=== PATIENT | male | born 1980 | race Caucasian/White ===

== ENCOUNTER 2017-01-05 11:37 | Inpatient (IN) | payer OTHER ==
[2017-01-05] MEDS ORDERED: HYDROmorphone 1 MG/ML 1 ML SYRINGE IVP STA ×2 (11:52→16:12)
[2017-01-05] MEDS ORDERED: SODIUM CHLORIDE 0.9% 1,000 ML IV STA ×2 (11:52)
[2017-01-05] MEDS ORDERED: ONDANSETRON 4 MG/2 ML VIAL IVP STA (11:52)
[2017-01-05] MEDS ORDERED: FAMOTIDINE 20 MG/2 ML VIAL IV STA (11:55)
--- NOTE | 2017-01-05 11:55 | ED ---
General Adult HPI - General Chief complaint: Abdominal Pain Stated complaint: abd pain Time Seen by Provider: 01/05/17 11:40 Source: patient, RN notes reviewed Mode of arrival: ambulatory Limitations: no limitations - History of Present Illness Initial comments: Patient is a 36-year-old male who presents emergency room today with chief complaint of abdominal pain 2 weeks. He does admit that over the past week she 's been expressing pain in the upper abdomen. States it is worse after he eats. He is worried about possible gallbladder issues. States never had pain like this before. States does not matter what he eats. He has pain afterwards. He does admit to episodes of nausea vomiting no signs of blood. Denies any other complaints or symptoms. Patient denies any recent fever, chills , shortness of breath, chest pain, back pain, numbness or tingling, dysuria or hematuria, constipation or diarrhea, headaches or visual changes, or any other complaints. - Related Data Home Medications Medication Instructions Recorded Confirmed Calcium Carbonate [Tums] 1,000 mg PO QID PRN 01/05/17 01/05/17 Ibuprofen [Motrin] 400 mg PO Q6HR PRN 01/05/17 01/05/17 Allergies Allergy/AdvReac Type Severity Reaction Status Date / Time diphenhydramine AdvReac Severe AGITATION Verified 01/05/17 12:24 [From [facility]] Review of Systems ROS Statement: Those systems with pertinent positive or pertinent negative responses have been documented in the HPI. ROS Other: All systems not noted in ROS Statement are negative. Past Medical History Past Medical History: No Reported History Additional Past Medical History / Comment(s): crohns History of Any Multi-Drug Resistant Organisms: None Reported Past Surgical History: Hernia Repair Past Psychological History: No Psychological Hx Reported Smoking Status: Current every day smoker Past Alcohol Use History: None Reported Past Drug Use History: None Reported General Exam - General Exam Comments Initial Comments: General: The patient is awake and alert, in no distress, and does not appear acutely ill. Eye: Pupils are equal, round and reactive to light, extra-ocular movements are intact. No nystagmus. There is normal conjunctiva bilaterally. No signs of icterus. Ears, nose, mouth and throat: There are moist mucous membranes and no oral lesions. Neck: The neck is supple, there is no tenderness or JVD. Cardiovascular: There is a regular rate and rhythm. No murmur, rub or gallop is appreciated. Respiratory: Lungs are clear to auscultation, respirations are non-labored, breath sounds are equal. No wheezes, stridor, rales, or rhonchi. Gastrointestinal: Normal appearance the abdomen. Normal bowel sounds. Abdomen soft on palpation. Patient does have tenderness in the epigastric. Mild tenderness right upper quadrant. Mild tenderness left upper quadrant. No rebound tenderness. Guarding. No CVA tenderness. Musculoskeletal: Normal ROM, no tenderness. Strength 5/5. Sensation intact. Pulses equal bilaterally 2+. Neurological: A&O x 3. CN II-XII intact, There are no obvious motor or sensory deficits. Coordination appears grossly intact. Speech is normal. Skin: Skin is warm and dry and no rashes or lesions are noted. Psychiatric: Cooperative, appropriate mood & affect, normal judgment. Limitations: no limitations Course Vital Signs 01/05/17 01/05/17 01/05/17 11:44 12:00 16:05 Temperature 98.2 F 98.5 F 97.8 F Pulse Rate 118 H 108 H 72 Respiratory 20 16 18 Rate Blood Pressure 144/86 128/77 106/64 O2 Sat by Pulse 97 98 98 Oximetry Medical Decision Making - Medical Decision Making Patient's CT of the abdomen shows 1. Multiloculated abscess from [place] visceral perforation, perforated appendix is favored, with extensive descending colonic and cecal bowel wall thickening, pericolonic inflammation fat stranding , and fascial thickening with free fluid in the pelvis area abscess may not be currently minimal to percutaneous drainage as there are numerous loculations and extensive surrounding phlegmon. 2. Bilateral 1-2 mm nonobstructing renal calculi. Case was discussed with attending physician who did discuss case with on -call surgeon Dr. Peralta who recommends transfer she feels that cases more complicated and may require Crohns specialist. 1545: Case discussed with Chuckie Frazier. ER resident Dr. Jamison to discuss case with on-call surgeon. 1552: [facility] ER attending physician called back stating that their surgeon would not except case as they feel that it could be handled at this facility 1610: Case discussed with surgeon Dr. Harris who states he will come to evaluate the patient here at approximately 45 minutes. Patient has been updated. Currently receiving IV antibiotics of Zosyn. Patient resting comfortably. 1512: Patient seen here in the emergency room by Dr. Arreola. States he willing to accept the patient. Patient will be admitted to medicine and was discussed with admitting physician Dr. Garg. - Lab Data Result diagrams: 01/05/17 12:15 01/05/17 12:15 Lab Results 01/05/17 01/05/17 01/05/17 Range/Units 12:15 12:15 13:20 WBC 20.0 H (3.8-10.6) k/uL RBC 4.92 (4.30-5.90) m/uL Hgb 14.9 (13.0-17.5) gm/dL Hct 44.5 (39.0-53.0) % MCV 90.5 (80.0-100.0) fL MCH 30.2 (25.0-35.0) pg MCHC 33.3 (31.0-37.0) g/dL RDW 12.9 (11.5-15.5) % Plt Count 396 (150-450) k/uL Neutrophils % 87 % Lymphocytes % 7 % Monocytes % 4 % Eosinophils % 1 % Basophils % 0 % Neutrophils # 17.4 H (1.3-7.7) k/uL Lymphocytes # 1.4 (1.0-4.8) k/uL Monocytes # 0.8 (0-1.0) k/uL Eosinophils # 0.2 (0-0.7) k/uL Basophils # 0.1 (0-0.2) k/uL Sodium 139 (137-145) mmol/L Potassium 4.3 (3.5-5.1) mmol/L Chloride 106 (98-107) mmol/L Carbon Dioxide 22 (22-30) mmol/L Anion Gap 11 mmol/L BUN 12 (9-20) mg/dL Creatinine 0.70 (0.66-1.25) mg/dL Est GFR (MDRD) Af Amer >60 (>60 ml/min/1.73 sqM) Est GFR (MDRD) Non-Af >60 (>60 ml/min/1.73 sqM) Glucose 145 H (74-99) mg/dL Calcium 9.1 (8.4-10.2) mg/dL Total Bilirubin 0.8 (0.2-1.3) mg/dL AST 14 L (17-59) U/L ALT 20 L (21-72) U/L Alkaline Phosphatase 70 (38-126) U/L Total Protein 7.0 (6.3-8.2) g/dL Albumin 3.5 (3.5-5.0) g/dL Amylase 43 (30-110) U/L Lipase 50 (23-300) U/L Urine Color Yellow Urine Appearance Clear (Clear) Urine pH 6.0 (5.0-8.0) Ur Specific [place] 1.025 (1.001-1.035) Urine Protein 1+ H (Negative) Urine Glucose (UA) Negative (Negative) Urine Ketones Trace H (Negative) Urine Blood Moderate H (Negative) Urine Nitrite Negative (Negative) Urine Bilirubin Negative (Negative) Urine Urobilinogen 3.0 (<2.0) mg/dL Ur Leukocyte Esterase Negative (Negative) Urine RBC 18 H (0-5) /hpf Urine WBC 1 (0-5) /hpf Urine Bacteria Rare H (None) /hpf Urine Mucus Many H (None) /hpf Disposition Clinical Impression: Intestinal abscess Disposition: ADMITTED IP TO THIS HOSP Condition: Stable Time of Disposition: 17:12
[2017-01-05 12:31] LABS: Basophils # (A) 0.1 k/uL (0-0.2); Basophils % (A) 0 %; CH 30.5; CHCM 33.7; Eosinophils # (A) 0.2 k/uL (0-0.7); Eosinophils % (A) 1 %; HCT 44.5 % (39.0-53.0); HDW 2.61; HGB 14.9 gm/dL (13.0-17.5); Luc % (Auto) 1; Lymphocytes # (A) 1.4 k/uL (1.0-4.8); Lymphocytes % (A) 7 %; MCH 30.2 pg (25.0-35.0); MCHC 33.3 g/dL (31.0-37.0); MCV 90.5 fL (80.0-100.0); Monocytes # (A) 0.8 k/uL (0-1.0); Monocytes % (A) 4 %; Neutrophils # (A) 17.4 k/uL (1.3-7.7); Neutrophils % (A) 87 %; RBC 4.92 m/uL (4.30-5.90); RDW 12.9 % (11.5-15.5); WBC (Perox) 19.31
[2017-01-05 12:39] LABS: ALT 20 U/L (21-72); AST 14 U/L (17-59); Alkaline Phosphatase 70 U/L (38-126); Amylase 43 U/L (30-110); Anion Gap 11 mmol/L; Blood Urea Nitrogen 12 mg/dL (9-20); Calcium 9.1 mg/dL (8.4-10.2); Carbon Dioxide 22 mmol/L (22-30); Chloride 106 mmol/L (98-107); Glucose 145 mg/dL (74-99); Non-African American GFR(MDRD) >60 (>60 ml/min/1.73 sqM); Potassium 4.3 mmol/L (3.5-5.1); Sodium 139 mmol/L (137-145); Total Bilirubin 0.8 mg/dL (0.2-1.3)
--- NOTE | 2017-01-05 13:11 | US ---
EXAMINATION TYPE: US abdomen limited DATE OF EXAM: 01/05/2017 12:57 PM COMPARISON: NONE CLINICAL HISTORY: Pain. Epigastric pain, nausea and vomiting x 3 weeks, history of kidney stones EXAM MEASUREMENTS: Liver Length: 15.5 cm Gallbladder Wall: 0.2 cm CBD: 0.3 cm Right Kidney: 11.8 x 4.0 x 5.4 cm Pancreas: portions are obscured by overlying bowel content Liver: appears wnl Gallbladder: no evidence of stones Evidence for sonographic Carbone's sign: no CBD: appears wnl Right Kidney: no evidence of hydronephrosis IMPRESSION: NORMAL RIGHT UPPER QUADRANT ULTRASOUND.
[2017-01-05] MEDS ORDERED: MAG HYDROX/AL HYDROX/SIMETH 30 ML, HYOSCYAMINE ELIXIR 10 ML, CIMETIDINE HCL 300 MG, LID... PO STA ×4 (13:51)
[2017-01-05 13:52] LABS: Appearance,Urine Clear (Clear); Bacteria,Urine Rare /hpf; Bilirubin,Urine Negative (Negative); Glucose,Urine (UA) Negative (Negative); Ketones,Urine Trace (Negative); Leukocyte Esterase,Urine Negative (Negative); Mucus,Urine Many /hpf; Nitrite,Urine Negative (Negative); Particle Count 8010; Protein,Urine 1+ (Negative); RBC,Urine 18 /hpf (0-5); Specific Gravity,Urine 1.025 (1.001-1.035); UA Billing (MACRO vs. MICRO) MICRO; WBC,Urine 1 /hpf (0-5)
[2017-01-05] MEDS ORDERED: IOHEXOL 350 MG/ML 25 ML BOTTLE (ORAL USE) PO PRN (14:13)
[2017-01-05] MEDS ORDERED: RX INFO: IV CONTRAST WAS GIVEN 1 EACH MISC MISCELLANE PRN (14:13)
--- NOTE | 2017-01-05 15:21 | CT ---
EXAMINATION TYPE: CT abdomen pelvis w con DATE OF EXAM: 01/05/2017 3:01 PM COMPARISON: 08/08/2016 HISTORY: LUQ pain that worsens following meals CT DLP: 874 mGycm Automated exposure control for dose reduction was used. TECHNIQUE: Helical acquisition of images was performed from the lung bases through the pelvis. CONTRAST: Performed with Oral Contrast and with IV Contrast, patient injected with 100 mL of Omnipaque 300. FINDINGS: LUNG BASES: No significant abnormality is appreciated. LIVER/GB: No significant abnormality is appreciated. PANCREAS: No significant abnormality is seen. SPLEEN: No significant abnormality is seen. ADRENALS: No significant abnormality is seen. KIDNEYS: The kidneys enhance symmetrically. 2 punctate 1 to 2 mm nonobstructing left midpole renal ca lculi are seen as well as a single 1 to 2 mm right midpole renal calculus which is also nonobstructin g. RETROPERITONEAL ADENOPATHY: None visualized REPRODUCTIVE ORGANS: No significant abnormality is seen URINARY BLADDER: No significant abnormality is seen. PELVIC ADENOPATHY: None visualized. OSSEOUS STRUCTURES: No significant abnormality is seen. Sclerotic bone islands are stable and benign . BOWEL: There is long segment bowel wall thickening and also hyperemia of the entirety of the descend ing colon and cecum with extensive pericolonic fat stranding around the cecum and thickening of the a djacent fascial planes with free fluid lying dependently within the pelvis. Adjacent to the low-lying pelvic cecum there is a multiloculated peripherally rim-enhancing phlegmonous collection containing foci of air and fluid measuring at least 3.2 x 2.7 cm with an adjacent smaller air and fluid containi ng satellite focus measuring 1.6 x 1.7 cm. Extensive surrounding inflammatory changes and phlegmonous changes are seen within the pelvis. Loculated free air is present within the pelvis however no pneum operitoneum is seen within the upper abdomen. Sigmoid diverticula are present without pericolonic fat stranding other than the adjacent pericolonic fat stranding from the right hemicolon. Findings were discussed in person with Dr. Joseph (ER physician) at 1515 on 01/05/[address] Alfredo. IMPRESSION: 1. MULTILOCULATED ABSCESS FROM HOLLOW VISCERAL PERFORATION, PERFORATED APPENDIX IS FAVORED, WITH EXTE NSIVE DESCENDING COLONIC AND CECAL BOWEL WALL THICKENING, PERICOLONIC INFLAMMATORY FAT STRANDING, AND FASCIAL THICKENING WITH FREE FLUID IN THE PELVIS. ABSCESS MAY NOT BE CURRENTLY MINIMAL TO PERCUTANEO US DRAINAGE THERE ARE NUMEROUS LOCULATIONS AND EXTENSIVE SURROUNDING PHLEGMON. 2. BILATERAL 1 TO 2 MM NONOBSTRUCTING RENAL CALCULI.
[2017-01-05] MEDS ORDERED: PIPERACILLIN-TAZOBACTAM 3.375 GM in DEXTROSE/WATER 1 50ML.BAG IVPB STA (15:31)
[2017-01-05] MEDS ORDERED: SODIUM CHLORIDE 0.9% 1,000 ML IV ONE (17:16)
[2017-01-05] MEDS ORDERED: NALOXONE 0.4 MG/ML 1 ML VIAL IV PRN (17:16)
[2017-01-05] MEDS ORDERED: ONDANSETRON 4 MG/2 ML VIAL IVP PRN (17:16)
[2017-01-05] MEDS ORDERED: methylPREDNISolone SOD SUCCI 125 MG/2 ML VIAL IV STA (17:37)
--- NOTE | 2017-01-05 17:43 | P.GSCN ---
History of Present Illness Consult date: 01/05/17 Reason for Consult: Fisutalizing crohns with abscess Requesting physician: Rhys Joseph History of present illness: Patient is a [age]-year-old male who had Crohn disease diagnosed about 8 years ago. He had one further up in the past she's a colonoscopy in the past by Dr. Buenrostro at which time it was revealed that he had Crohn's disease. He presents today with a 3 week history. He was not feeling well primarily with a left upper quadrant and epigastric pain so she was nausea and vomiting. This been progressively getting worse. For the last 2-3 weeks she's not been eating much he's been losing weight. He's not had any problems with bowel movements and no other abdominal pain except in the left upper quadrant which is moderate to severe. He has had some fever and chills and is not feeling hungry at this time. His appetite is reduced this and malaise. No urinary complaints no hematemesis hematochezia or melena. He has not followed up with any primary care doctor in the past. He is otherwise not to worker. He smokes half pack per day. He has an adverse reaction with Benadryl. Only previous surgery is a right inguinal hernia. Review of Systems - Constitutional Denies fever, Denies weight loss - EENT Eyes: denies blurred vision - Cardiovascular Denies chest pain, Denies claudication, Denies edema, Denies irregular heart beat, Denies leg edema, Denies palpitations, Denies shortness of breath - Respiratory Denies cough, Denies cough with sputum, Denies dyspnea - Gastrointestinal Reports abdominal pain, Reports heartburn, Reports indigestion, Reports loss of appetite, Denies change in bowel habits, Denies constipation, Denies diarrhea, Denies excessive gas, Denies hematochezia - Integumentary Denies rash, Denies unusual bruising Past Medical History Past Medical History: No Reported History Additional Past Medical History / Comment(s): crohns History of Any Multi-Drug Resistant Organisms: None Reported Past Surgical History: Hernia Repair Past Psychological History: No Psychological Hx Reported Smoking Status: Current every day smoker Past Alcohol Use History: None Reported Past Drug Use History: None Reported Medications and Allergies Home Medications Medication Instructions Recorded Confirmed Type Calcium Carbonate [Tums] 1,000 mg PO QID PRN 01/05/17 01/05/17 History Ibuprofen [Motrin] 400 mg PO Q6HR PRN 01/05/17 01/05/17 History Allergies Allergy/AdvReac Type Severity Reaction Status Date / Time diphenhydramine AdvReac Severe AGITATION Verified 01/05/17 12:24 [From [facility]] Surgical - Exam Vital Signs Temp Pulse Resp BP Pulse Ox 98.2 F 118 H 20 144/86 97 01/05/17 11:44 01/05/17 11:44 01/05/17 11:44 01/05/17 11:44 01/05/17 11:44 - General well developed, well nourished, moderate distress - Eyes PERRL, normal ocular movement, no pale, no icteric, no deviation, no loss of movement absent: ptosis, lesions, erythema, surgical pupil - ENT dry mucous membranes normal pinna, normal nares - Respiratory normal expansion, normal respiratory effort - Cardiovascular Rhythm: regular - Abdomen Patient is mildly tender in the left upper quadrant. He is not guarding but he has some tenderness in remaining part of the abdomen there is no rebound. Right lower quadrant phlegmon is palpable Abdomen: soft, tender - Integumentary no rash, no growths, no abnormal pigmentation - Neurologic normal coordination - Musculoskeletal normal gait, normal posture - Psychiatric oriented to time, oriented to person, oriented to place, speech is normal, memory intact Results - Labs 01/05/17 12:15 01/05/17 12:15 Abnormal Lab Results - Last 24 Hours (Table) 01/05/17 01/05/17 01/05/17 Range/Units 12:15 12:15 13:20 WBC 20.0 H (3.8-10.6) k/uL Neutrophils # 17.4 H (1.3-7.7) k/uL Glucose 145 H (74-99) mg/dL AST 14 L (17-59) U/L ALT 20 L (21-72) U/L Urine Protein 1+ H (Negative) Urine Ketones Trace H (Negative) Urine Blood Moderate H (Negative) Urine RBC 18 H (0-5) /hpf Urine Bacteria Rare H (None) /hpf Urine Mucus Many H (None) /hpf Diabetes panel 01/05/17 Range/Units 12:15 Sodium 139 (137-145) mmol/L Potassium 4.3 (3.5-5.1) mmol/L Chloride 106 (98-107) mmol/L Carbon Dioxide 22 (22-30) mmol/L BUN 12 (9-20) mg/dL Creatinine 0.70 (0.66-1.25) mg/dL Glucose 145 H (74-99) mg/dL Calcium 9.1 (8.4-10.2) mg/dL AST 14 L (17-59) U/L ALT 20 L (21-72) U/L Alkaline Phosphatase 70 (38-126) U/L Total Protein 7.0 (6.3-8.2) g/dL Albumin 3.5 (3.5-5.0) g/dL Calcium panel 01/05/17 Range/Units 12:15 Calcium 9.1 (8.4-10.2) mg/dL Albumin 3.5 (3.5-5.0) g/dL Pituitary panel 01/05/17 Range/Units 12:15 Sodium 139 (137-145) mmol/L Potassium 4.3 (3.5-5.1) mmol/L Chloride 106 (98-107) mmol/L Carbon Dioxide 22 (22-30) mmol/L BUN 12 (9-20) mg/dL Creatinine 0.70 (0.66-1.25) mg/dL Glucose 145 H (74-99) mg/dL Calcium 9.1 (8.4-10.2) mg/dL Adrenal panel 01/05/17 Range/Units 12:15 Sodium 139 (137-145) mmol/L Potassium 4.3 (3.5-5.1) mmol/L Chloride 106 (98-107) mmol/L Carbon Dioxide 22 (22-30) mmol/L BUN 12 (9-20) mg/dL Creatinine 0.70 (0.66-1.25) mg/dL Glucose 145 H (74-99) mg/dL Calcium 9.1 (8.4-10.2) mg/dL Total Bilirubin 0.8 (0.2-1.3) mg/dL AST 14 L (17-59) U/L ALT 20 L (21-72) U/L Alkaline Phosphatase 70 (38-126) U/L Total Protein 7.0 (6.3-8.2) g/dL Albumin 3.5 (3.5-5.0) g/dL - Imaging Additional studies: Computed tomography scan of the abdomen and pelvis was reviewed which shows intraloop abscesses between the thickened bowel Crohn's. Appendix is not visualizable. Assessment and Plan (1) Crohns disease Status: Acute Plan: Isn't a 36-year-old male who has Crohn's disease that is specializing in forming abscess interloop abscesses. The appendix is not visible. Considering the patient's history is unlikely that started on the appendix from the piece had specializing folds for a while. He presents with left upper quadrant pain without any bowel issues. Computed tomography scan reveals a small abscess 3.5 cm x 1.5 cm. There are at least 3 areas of small abscesses which are pretty small in size. At this time his abdomen is mildly tender but is not peritoneal I believe there is a window where we can start with immunosuppression and appropriate IV antibiotics. I will continue to monitor his white count and his prognosis is closely. He does not respond to IV antibiotics as well as the steroids he may need surgery. And a detailed discussion with him about closely monitoring his Crohn's also explained to him that in case of surgery he may require an extensive resection of his bowel that would result possibly short bowel syndrome or colostomy creation. Patient is now very willing to undergo any kind of surgery at this time however I have explained all of the plans that to try to manage this medically at this time. I will continue to follow the patient closely with you thank you for the consult
[2017-01-05] MEDS: KETOROLAC 30 MG/ML 1 ML VIAL IVP SCH ×2 (19:00→23:33)
[2017-01-05] MEDS: methylPREDNISolone SOD SUCCI 40 MG/ML 1 ML VIAL IV SCH ×2 (19:02→23:32)
[2017-01-05] MEDS: HYDROmorphone 1 MG/ML 1 ML SYRINGE IV PRN ×2 (19:10→22:03)
--- NOTE | 2017-01-05 21:02 | HP ---
DATE OF ADMISSION: 01/05/2017 CHIEF COMPLAINT: Abdominal ( ) HISTORY OF PRESENT ILLNESS: This is the first known admission for this 36-year-old white male who has a long-standing history of Crohn's disease. Over the last several days he has had increasing abdominal pain. He has had no nausea or vomiting. He also has had no fever or chills. He had a bowel movement this morning. In the emergency room it was felt that he had free air and possibly a perforation. REVIEW OF SYSTEMS: He has had no nausea or vomiting and he has had no melena, hematochezia, jaundice, etc. He has had no urinary complaints. Past medical history, family history, and personal and social histories are unremarkable. He has had a hernia procedure in the past. He is ALLERGIC TO BENADRYL. He is currently not taking any medication. He does not smoke. PHYSICAL EXAMINATION: Blood pressure 106/64 with a pulse of 81, respirations of 29. He is afebrile. In general he appeared to be slender and in no acute distress. Head, ears, eyes, nose, mouth and throat were normal. The chest was clear. Cardiac exam was normal. The abdomen was flat. There was mild tenderness throughout. There were no masses or visceromegaly. Extremities were normal. Neurologically he is intact. IMPRESSION: 1. Crohn's disease. 2. Possible perforated viscus. PLAN: 1. Bed rest. 2. Intravenous fluids. 3. N.p.o. 4. Surgery consult.
[2017-01-05] MEDS ORDERED: NICOTINE 14MG/24HR PATCH TRANSDERM STA (21:14)
[2017-01-05] MEDS: LORazepam 2 MG/ML SYRINGE IV PRN (21:27)
[2017-01-05] MEDS: PIPERACILLIN-TAZOBACTAM 3.375 GM in DEXTROSE/WATER 1 50ML.BAG IVPB SCH (23:33)
[2017-01-06] MEDS: HYDROmorphone 1 MG/ML 1 ML SYRINGE IV PRN ×6 (04:03→22:31)
[2017-01-06] MEDS: LORazepam 2 MG/ML SYRINGE IV PRN ×3 (05:41→21:06)
[2017-01-06] MEDS: methylPREDNISolone SOD SUCCI 40 MG/ML 1 ML VIAL IV SCH (05:44)
[2017-01-06] MEDS: KETOROLAC 30 MG/ML 1 ML VIAL IVP SCH ×3 (05:47→17:30)
[2017-01-06 06:15] LABS: Basophils % (A) 0 %; CHCM 32.9; Eosinophils % (A) 0 %; HCT 38.6 % (39.0-53.0); HDW 2.83; Luc # (Auto) 0.03; Luc % (Auto) 0; Lymphocytes # (A) 0.5 k/uL (1.0-4.8); Lymphocytes % (A) 5 %; MCH 30.7 pg (25.0-35.0); MCHC 33.6 g/dL (31.0-37.0); MCV 91.5 fL (80.0-100.0); Mean Platelet Volume 6.4; Monocytes # (A) 0.2 k/uL (0-1.0); Monocytes % (A) 2 %; Neutrophils % (A) 92 %; RBC 4.22 m/uL (4.30-5.90); RDW 12.5 % (11.5-15.5); WBC 9.8 k/uL (3.8-10.6); WBC (Perox) 10.04
[2017-01-06 06:33] LABS: ALT 21 U/L (21-72); AST 8 U/L (17-59); Alkaline Phosphatase 60 U/L (38-126); Anion Gap 7 mmol/L; Blood Urea Nitrogen 13 mg/dL (9-20); Calcium 8.9 mg/dL (8.4-10.2); Carbon Dioxide 24 mmol/L (22-30); Chloride 108 mmol/L (98-107); Glucose 190 mg/dL (74-99); Non-African American GFR(MDRD) >60 (>60 ml/min/1.73 sqM); Potassium 4.7 mmol/L (3.5-5.1); Sodium 139 mmol/L (137-145); Total Bilirubin 0.4 mg/dL (0.2-1.3); Total Protein 6.1 g/dL (6.3-8.2)
[2017-01-06 06:35] LABS: Glucose,Whole Blood 157 mg/dL (75-99)
[2017-01-06] MEDS: INSULIN LISPRO (humaLOG) 300 UNIT/3 ML VIAL SQ SCH ×4 (06:47→20:58)
[2017-01-06] MEDS: PANTOPRAZOLE 40 MG/10 ML VIAL IVP SCH (09:06)
[2017-01-06] MEDS: PIPERACILLIN-TAZOBACTAM 3.375 GM in DEXTROSE/WATER 1 50ML.BAG IVPB SCH ×3 (09:07→23:05)
--- NOTE | 2017-01-06 11:03 | CONS ---
DATE OF CONSULTATION: 01/06/2017 REASON FOR CONSULTATION: Crohn disease with intra-abdominal abscess. HISTORY OF PRESENT ILLNESS: The patient is a 36-year-old pleasant white male with long-standing history of Crohn disease diagnosed approximately 12 or 13 years ago. According to the patient, he has been doing extremely well. In fact in the last 8 years, he was not maintained on any medications. He recalled having a couple of flare-ups about 8 or 9 years ago, treated with IV steroids for a short course and has done extremely well. For the last 4 weeks he started having diffuse abdominal pain, mostly in the epigastric left upper quadrant area and sometimes in the periumbilical area, associated with some nausea, vomiting, however, for the last 2 days he started developing low-grade fever, had a couple of episodes of emesis and also noted some diarrhea. The symptoms progressively got worse and he developed a fever and came into the emergency room last night. He also lost about 10 pounds since the onset of these symptoms about 4 weeks ago. He denies any rectal bleeding or melena. He came into the emergency room and subsequently had a CT of the abdomen and pelvis done that showed a long segment of bowel wall thickening involving the descending colon, cecum, evidence of multiloculated peripherally enhancing phlegmonous collections containing focus of air and fluid measuring 3 x 2 cm and an adjacent smaller area measuring 1.6 x 1.7 cm with extensive surrounding inflammatory changes within the pelvis all suggestive of multiple abscesses. No pneumoperitoneum in the upper abdomen seen. The patient was seen by Dr. Harris from surgery. He was admitted to the hospital presently on IV broad-spectrum antibiotics and was started on IV Solu-Medrol also. This morning, the patient stated that he is feeling somewhat better. He still has diffuse abdominal pain, but much better than yesterday. No fever, chills, no further episodes of nausea or vomiting. PAST MEDICAL HISTORY: Crohn disease diagnosed about 13 years ago in remission for 8 years and not maintained on any medications. MEDICATIONS AT HOME: Motrin and Tums. SOCIAL HISTORY: No smoking or alcohol use. ALLERGIES: BENADRYL. PAST SURGICAL HISTORY: None. REVIEW OF SYSTEMS: CARDIOPULMONARY: No chest pain or shortness of breath. GENITOURINARY: No dysuria or hematuria. MUSCULOSKELETAL: Unremarkable. SKIN: Unremarkable. ENDOCRINE: Unremarkable. PSYCHIATRIC: Unremarkable. NEUROLOGY: Unremarkable. ENT/VISION: Unremarkable. CONSTITUTIONAL: Weight loss of 10 pounds in the last one month. No fever, chills. On physical examination, temperature 97.1, pulse rate 82, blood pressure 108/54. HEENT examination unremarkable. Conjunctivae pink. Sclerae anicteric. Oral cavity, no lesions. NECK: No JVD or lymph node enlargement. Chest was clear to auscultation. HEART: Regular rate and rhythm. ABDOMEN: Mild diffuse tenderness, mostly in the left upper quadrant area in the periumbilical area as well as in the right lower quadrant area, but bowel sounds are positive. No organomegaly. No rebound or rigidity. EXTREMITIES: No pedal edema. NEURO: Alert and oriented x3. No focal deficits. LABS: Yesterday, WBC 20,000; today it is 9.8, hemoglobin 13, platelets normal. Basic metabolic panel is within normal limits. Amylase and lipase are normal. IMPRESSION: This is a patient with long-standing history of Crohn disease who has been in clinical remission for the last 8 years, not on any maintenance medications and no prior history of surgeries presents to the hospital with progressive worsening abdominal pain associated with intermittent nausea, vomiting, and some diarrhea for the last 4 weeks' duration, weight loss of 10 pounds. He also had fever, chills, night sweats. He did have CT of the abdomen and pelvis done that showed multiple small abscesses, the largest measuring 3 cm in the pelvic area as well as inflammatory changes in the small bowel involving the pelvis as well as the descending colon and the cecum with significant inflammatory changes in the surrounding small bowel. The clinical and radiological picture is consistent with exacerbation of Crohn disease with multiple small pelvic abscesses. He has not been on maintenance medications for the last 8 years. RECOMMENDATIONS: 1. Continue with broad-spectrum antibiotics. 2. Will increase the Solu-Medrol to 60 mg every 6 hours and then taper it gradually over the next 24 to 48 hours. 3. I had a lengthy discussion with patient regarding further management of Crohn disease. At this time, once his pelvic abscesses are resolved and if he does not need any surgery, in the future we will consider biologic therapy as a part of treatment of extensive Crohn disease. 4. He can be started on clear liquid diet if it is okay with General Surgery. 5. I will obtain C-reactive protein and Sed rate. 6. We will follow the patient closely during his hospital stay. Thank you for this consultation.
[2017-01-06 11:40] LABS: Glucose,Whole Blood 236 mg/dL (75-99)
[2017-01-06] MEDS: methylPREDNISolone SOD SUCCI 125 MG/2 ML VIAL IV SCH ×3 (12:05→23:05)
--- NOTE | 2017-01-06 12:55 | PN ---
CHIEF COMPLAINT: Crohn disease and possible perforated viscus. HISTORY OF PRESENT ILLNESS: This gentleman is doing fairly well. He is not having a great deal of pain. It is actually a little bit better than last night. He has had no distention, nausea, vomiting, chills, etc. PHYSICAL EXAM: Chest is clear. Cardiac exam is normal. The abdomen is flat and somewhat firm. He seems to have some generalized tenderness. He has no rebound or referred tenderness. Bowel sounds are heard. IMPRESSION: 1. Possible perforated viscus. 2. Crohn disease. 3. Chronic obstructive pulmonary disease. PLAN: Repeat studies today and await for recommendations with Surgery.
--- NOTE | 2017-01-06 13:01 | P.PN ---
Subjective Principal diagnosis: Crohn's disease Pain has improved. No nausea or vomting. Feeling better than yesterday. No bowel movements. Passing urine. Ate regular meal last night/. Objective - Vital Signs Vital signs: Vital Signs Temp 96.9 F L 01/06/17 08:00 Pulse 76 01/06/17 08:00 Resp 16 01/06/17 08:00 BP 105/54 01/06/17 08:00 Pulse Ox 98 01/06/17 08:00 Intake & Output 01/05/17 01/06/17 01/06/17 18:59 06:59 18:59 Intake Total 1150 Balance 1150 Weight 69.3 kg Intake: Intake, IV Titration 1150 Amount Piperacillin-Tazobactam 3 50 .375 gm In Dextrose/Water 1 50ml.bag @ 12.5 mls/hr IVPB Q8HR [facility] Rx#: [id number] Sodium Chloride 0.9% 1, 1100 000 ml @ 100 mls/hr IV . Q10H ONE Rx#:[id number] Other: Voiding Method Toilet Toilet # Voids 1 - Constitutional General appearance: Present: average body habitus, cooperative - EENT Eyes: Present: anicteric sclerae, EOMI. Absent: abnormal pupil ENT: Absent: hard of hearing - Neck Neck: Present: normal ROM - Cardiovascular Rhythm: regular - Gastrointestinal Gastrointestinal Comment(s): Mild disffuse tenderenss, significantly improved since yesterday. General gastrointestinal: Present: soft. Absent: tenderness - Labs CBC & Chem 7: 01/06/17 05:35 01/06/17 05:35 Labs: Abnormal Lab Results - Last 24 Hours (Table) 01/06/17 01/06/17 01/06/17 Range/Units 05:35 05:35 06:32 RBC 4.22 L (4.30-5.90) m/uL Hct 38.6 L (39.0-53.0) % Neutrophils # 9.0 H (1.3-7.7) k/uL Lymphocytes # 0.5 L (1.0-4.8) k/uL Chloride 108 H (98-107) mmol/L Glucose 190 H (74-99) mg/dL POC Glucose (mg/dL) 157 H (75-99) mg/dL AST 8 L (17-59) U/L Total Protein 6.1 L (6.3-8.2) g/dL Albumin 3.0 L (3.5-5.0) g/dL 01/06/17 Range/Units 11:34 RBC (4.30-5.90) m/uL Hct (39.0-53.0) % Neutrophils # (1.3-7.7) k/uL Lymphocytes # (1.0-4.8) k/uL Chloride (98-107) mmol/L Glucose (74-99) mg/dL POC Glucose (mg/dL) 236 H (75-99) mg/dL AST (17-59) U/L Total Protein (6.3-8.2) g/dL Albumin (3.5-5.0) g/dL Assessment and Plan (1) Crohns disease Status: Acute Plan: Isn't a 36-year-old male who has Crohn's disease Since hsi admission the pain has imrpvoed and the leukocytosis and imrpoved GI input appreciated. Ok to advance diet to clear liquid diet. (issues of non -compliance noted from last night- will monitor) Abdomen is non surgical at this time. Agree with continuing Iv ABX and steroids. Will repeat CT in 48 hours.
[2017-01-06 15:43] VITALS: BMI 23.2
[2017-01-06 16:59] LABS: Glucose,Whole Blood 212 mg/dL (75-99)
[2017-01-06] MEDS: HYDROcodone/APAP 5-325MG 1 EACH TAB PO PRN ×2 (17:37→23:05)
[2017-01-06 21:08] LABS: Glucose,Whole Blood 234 mg/dL (75-99)
[2017-01-07] MEDS: KETOROLAC 30 MG/ML 1 ML VIAL IVP SCH ×3 (00:15→13:32)
[2017-01-07] MEDS: LORazepam 2 MG/ML SYRINGE IV PRN ×2 (00:16→17:01)
[2017-01-07] MEDS: HYDROmorphone 1 MG/ML 1 ML SYRINGE IV PRN ×5 (04:55→16:50)
[2017-01-07] MEDS: methylPREDNISolone SOD SUCCI 125 MG/2 ML VIAL IV SCH ×3 (05:00→17:49)
[2017-01-07] MEDS: INSULIN LISPRO (humaLOG) 300 UNIT/3 ML VIAL SQ SCH ×3 (06:43→17:48)
[2017-01-07] MEDS: HYDROcodone/APAP 5-325MG 1 EACH TAB PO PRN ×3 (06:47→17:47)
[2017-01-07 06:48] LABS: Glucose,Whole Blood 140 mg/dL (75-99)
[2017-01-07 07:33] LABS: Basophils % (A) 0 %; CH 30.1; Eosinophils % (A) 0 %; HCT 38.8 % (39.0-53.0); HDW 2.93; HGB 12.7 gm/dL (13.0-17.5); Luc # (Auto) 0.08; Luc % (Auto) 0; Lymphocytes % (A) 4 %; MCH 29.9 pg (25.0-35.0); MCHC 32.6 g/dL (31.0-37.0); MCV 91.7 fL (80.0-100.0); Mean Platelet Volume 6.6; Monocytes # (A) 0.6 k/uL (0-1.0); Monocytes % (A) 3 %; Neutrophils % (A) 93 %; RBC 4.23 m/uL (4.30-5.90); RDW 12.6 % (11.5-15.5); WBC 22.6 k/uL (3.8-10.6); WBC (Perox) 23.46
[2017-01-07] MEDS: PIPERACILLIN-TAZOBACTAM 3.375 GM in DEXTROSE/WATER 1 50ML.BAG IVPB SCH ×2 (07:36→16:45)
[2017-01-07] MEDS: PANTOPRAZOLE 40 MG/10 ML VIAL IVP SCH (07:38)
[2017-01-07] MEDS ORDERED: NICOTINE 14MG/24HR PATCH TRANSDERM SCH (09:00)
[2017-01-07 09:30] LABS: Erythrocyte Sedimentation Rate 17 mm/hr (0-15)
--- NOTE | 2017-01-07 09:52 | PN ---
DATE OF SERVICE: 01/07/2017 Patient is a 36-year-old white male with longstanding history of Crohn's disease, admitted to the hospital with abdominal pain and subsequently diagnosed with multiple small abscesses with thickening of the small bowel suggestive of exacerbation of Crohn's disease. The largest abscess was 3 x 4 cm. He was evaluated by Dr. Harris and presently on broad-spectrum antibiotics. He stated that his abdominal pain is improving. He was started on a clear liquid diet yesterday, tolerating well. No fever, chills. No diarrhea. On physical examination, he appears comfortable in no apparent distress. Vital signs are stable. Blood pressure 118/59, pulse rate 85, temperature 97.2. HEENT: Unremarkable. Conjunctivae pink. Sclerae anicteric. Oral cavity, no lesions. NECK: No JVD or lymph node enlargement. Chest was clear to auscultation. HEART: Regular rate and rhythm. ABDOMEN: Soft. There was mild diffuse tenderness but no rebound or rigidity. EXTREMITIES: No pedal edema. SKIN: No rashes. NEURO: He is alert and oriented x2. No focal deficits. LABS: WBC 22.6, hemoglobin 12.7, and platelets normal. Neutrophils 21. C-reactive protein is 42. IMPRESSION: 1. Exacerbation of Crohn's disease. 2. Multiple pelvic and abdominal abscess on the CAT scan done 2 days ago, presently on broad-spectrum antibiotics. He has worsening leukocytosis today, but clinically he seems to be doing better. RECOMMENDATIONS: 1. Continue with IV Solu-Medrol 60 mg q.6 hours. 2. Continue with broad-spectrum antibiotics. 3. If leukocytosis continues to get worse, we will plan on repeat CT of the abdomen and pelvis in the next 24 to 48 hours. 4. For now, will continue the same plan and will follow the patient closely during his hospital stay. Thank you for this consultation.
[2017-01-07 11:19] VITALS: RESP 16
[2017-01-07 12:03] LABS: Glucose,Whole Blood 160 mg/dL (75-99)
[2017-01-07] MEDS ORDERED: RX INFO: IV CONTRAST WAS GIVEN 1 EACH MISC MISCELLANE PRN (13:46)
[2017-01-07] MEDS: IOHEXOL 350 MG/ML 25 ML BOTTLE (ORAL USE) PO PRN ×2 (14:06→15:03)
[2017-01-07 16:25] LABS: Glucose,Whole Blood 119 mg/dL (75-99)
--- NOTE | 2017-01-07 16:30 | CT ---
EXAMINATION TYPE: CT abdomen pelvis w con DATE OF EXAM: 01/07/2017 3:51 PM COMPARISON: Previous CT dated 07 September 2016 HISTORY: Generalized pain CT DLP: 455.6 mGycm Automated exposure control for dose reduction was used. TECHNIQUE: Helical acquisition of images from the lung bases through the pelvis have been completed. CONTRAST: Performed with Oral Contrast and with IV Contrast, patient injected with 100 mL of Omnipaque 300. FINDINGS: LUNG BASES: No significant abnormality is appreciated. AORTA: No significant abnormality is appreciated. LIVER/GB: No significant abnormality is appreciated. PANCREAS: No significant abnormality is seen. SPLEEN: No significant abnormality is seen. ADRENALS: No significant abnormality is seen. KIDNEYS: Small left cortical cyst is present upper pole less than 1 cm in size. Stable appearance, no nobstructive calculus suspected on the left No hydronephrosis bilaterally. REPRODUCTIVE ORGANS: No significant abnormality is seen BOWEL: There is ileal wall and right colonic thickening. There is increased attenuation within the f at present adjacent to the terminal ileum, some extraluminal air is present which is localized, no fl uid is present to suggest sizable abscess however. The extraluminal collection measures approximately 3.2 x 2.1 x 2.5 cm. Diverticular changes associated with the sigmoid colon. FREE AIR: No Free Air visible. ASCITES: None visible. PELVIC ADENOPATHY: None visualized. RETROPERITONEAL ADENOPATHY: No Retroperitoneal Adenopathy visible. URINARY BLADDER: No significant abnormality is seen. OSSEOUS STRUCTURES: No significant abnormality is seen. IMPRESSION: CORRELATE FOR POSSIBLE CROHN DISEASE WITH LOCALIZED ABSCESS SOMEWHAT IMPROVED. NO EVIDENT BOWEL OBSTR UCTION. DIVERTICULOSIS.
--- NOTE | 2017-01-07 17:30 | P.PN ---
Progress Note - Text Patient is clinically doing better. No nausea or vomting. Pain is controlled. He remains non-cooperative and has been walking out of e building. He is afebrile with stable vitals . Abomen is soft and nontender. No guarding or rebound Labs noted. Likely due to steroids CT scan shows improvement A/p: Ok to discharge home from surgical standpoint. No surgical intervention planned. Patient remains very non copmliant.
[2017-01-07 17:36] VITALS: BP 122/67; PULSE 62; TEMP 97
--- NOTE | 2017-01-07 19:29 | DS ---
DATE OF ADMISSION: 01/05/2017 DATE OF DISCHARGE: 01/07/2017 CHIEF COMPLAINT: Abdominal pain and Crohn's disease. History of present illness and physical examination: Details of this man's history and physical can be found in the initial work-up. LABORATORY STUDIES: While he was in hospital, he had laboratory studies, the details of which can be found in the laboratory section of the chart. COURSE IN THE HOSPITAL: After admission, he was placed on bed rest, started on intravenous fluids and kept n.p.o. and started on IV antibiotics. If he had a perforated viscus, it probably sealed spontaneously. He was quite noncompliant and ( ) leave the hospital after disconnecting his IV fluids and antibiotic solution to go out into the parking lot to smoke. Because bowel sounds were present at the time of discharge and he is afebrile and his abdomen was only minimally tender, it was felt and concurred with by the surgeon that he could go home and he will be sent home on Keflex 500 mg t.i.d., Flagyl 500 t.i.d. and Medrol Dosepak and he will be seen in the office in a day or two. FINAL DIAGNOSES: 1. Exacerbation of Crohn's disease. 2. Possible perforated viscus without peritonitis. 3. Chronic obstructive pulmonary disease. Operations: None. CONSULTATIONS: General surgery. He is improved.
== END 2017-01-07 18:37 | disposition home or self-care (01) | DRG 385 ==
LOC: EC 11:37 → 6SEL 17:55
PROVIDERS: ADMIT Family Medicine; ATTEND Family Medicine
DX: K50.914 Crohn's disease, unspecified, with abscess (principal); K63.1 Perforation of intestine (nontraumatic); J44.9 Chronic obstructive pulmonary disease, unspecified; R11.2 Nausea with vomiting, unspecified; R63.4 Abnormal weight loss; R50.9 Fever, unspecified; R61 Generalized hyperhidrosis; T38.0X5A Adverse effect of glucocorticoids and synthetic analogues, initial encounter; N20.0 Calculus of kidney; F17.200 Nicotine dependence, unspecified, uncomplicated; Z88.8 Allergy status to other drugs, medicaments and biological substances; Z71.3 Dietary counseling and surveillance; Z91.19 Patient's noncompliance with other medical treatment and regimen
CPT/HCPCS: 36415; 74177; 76705; 80053; 81001; 82150; 83690; 85025; 85652; 86140; 87040; 96365; 96366; 96375; 96376; 99285

== ENCOUNTER → 2017-01-31 | Outpatient (CLI) | payer OTHER ==
[2017-01-31 09:57] LABS: ALT 24 U/L (21-72); AST 12 U/L (17-59); Alkaline Phosphatase 65 U/L (38-126); Anion Gap 10 mmol/L; Blood Urea Nitrogen 25 mg/dL (9-20); Calcium 9.6 mg/dL (8.4-10.2); Carbon Dioxide 28 mmol/L (22-30); Chloride 104 mmol/L (98-107); Glucose 75 mg/dL (74-99); Non-African American GFR(MDRD) >60 (>60 ml/min/1.73 sqM); Potassium 4.4 mmol/L (3.5-5.1); Sodium 142 mmol/L (137-145); Total Bilirubin 0.7 mg/dL (0.2-1.3); Total Protein 7.7 g/dL (6.3-8.2)
[2017-01-31 10:09] LABS: C Reactive Protein 11.3 mg/L (<10.0)
[2017-01-31 10:35] LABS: Basophils % (A) 0 %; CH 30.7; CHCM 31.6; Eosinophils # (A) 0.2 k/uL (0-0.7); Eosinophils % (A) 2 %; HCT 45.7 % (39.0-53.0); HDW 2.29; HGB 14.7 gm/dL (13.0-17.5); Luc # (Auto) 0.18; Luc % (Auto) 2; Lymphocytes # (A) 2.3 k/uL (1.0-4.8); Lymphocytes % (A) 24 %; MCH 31.3 pg (25.0-35.0); MCHC 32.1 g/dL (31.0-37.0); Mean Platelet Volume 6.9; Monocytes # (A) 0.5 k/uL (0-1.0); Monocytes % (A) 6 %; Neutrophils # (A) 6.3 k/uL (1.3-7.7); Neutrophils % (A) 66 %; RBC 4.69 m/uL (4.30-5.90); RDW 14.6 % (11.5-15.5); WBC 9.5 k/uL (3.8-10.6); WBC (Perox) 9.24
[2017-01-31 10:57] LABS: MCV 97.4 fL (80.0-100.0)
[2017-01-31 14:44] LABS: Erythrocyte Sedimentation Rate 4 mm/hr (0-15)
== END ==
LOC: LABWHC1 08:41
PROVIDERS: ATTEND Internal Medicine Gastroenterology
DX: K50.90 Crohn's disease, unspecified, without complications (principal)
CPT/HCPCS: 36415; 80053; 85025; 85652; 86140

== ENCOUNTER 2017-04-24 18:23 | Emergency (ER) | payer OTHER ==
[2017-04-24] MEDS ORDERED: SODIUM CHLORIDE 0.9% 1,000 ML IV ONE (19:31)
[2017-04-24] MEDS ORDERED: IPRATROPIUM-ALBUTEROL 3 ML NEB INHALATION STA ×2 (19:31→19:47)
[2017-04-24] MEDS ORDERED: methylPREDNISolone SOD SUCCI 125 MG/2 ML VIAL IV STA (19:31)
--- NOTE | 2017-04-24 19:38 | ED ---
General Adult HPI - General Chief complaint: Fever Stated complaint: pneumonia Time Seen by Provider: 04/24/17 19:23 Source: patient, family Mode of arrival: ambulatory Limitations: physical limitation - History of Present Illness Initial comments: Patient is a 37-year-old male with a history of asthma who presents with a chief complaint cough and fever since . Patient states that she has had decreased an injury, and is exertionally dyspneic. He states it is hard for him to climb stairs or work at this time. Patient states that he is coughing but nothing is coming up. Patient states that he has not had a rescue inhaler to use. Patient has not taken his temperature though he states he has felt chills. Patient can't think of any aggravating or alleviating factors. He denies any sick contacts. MD Complaint: Cough Onset/Timin -: days(s) Location: chest Radiation: non-radiation Quality: burning Consistency: constant Improves with: none Worsens with: none Associated Symptoms: cough, fever/chills Treatments Prior to Arrival: none - Related Data Previous Rx's Medication Instructions Recorded Albuterol Inhaler [Ventolin Hfa 1 - 2 puff INHALATION Q4HR #2 04/24/17 Inhaler] inhaler Azithromycin 250 mg PO DAILY #6 tab 04/24/17 predniSONE 60 mg PO DAILY #12 tab 04/24/17 Allergies Allergy/AdvReac Type Severity Reaction Status Date / Time diphenhydramine AdvReac Unknown Rapid Verified 04/24/17 19:40 [From Benadryl] Heart Rate Review of Systems ROS Statement: Those systems with pertinent positive or pertinent negative responses have been documented in the HPI. ROS Other: All systems not noted in ROS Statement are negative. Constitutional: Reports: chills. Denies: fever Eyes: Denies: vision change ENT: Denies: ear pain, throat pain Respiratory: Reports: cough, dyspnea, wheezes Cardiovascular: Reports: dyspnea on exertion. Denies: chest pain Endocrine: Reports: fatigue Gastrointestinal: Denies: abdominal pain, nausea, vomiting Genitourinary: Denies: urgency, dysuria Musculoskeletal: Denies: back pain Skin: Denies: rash, lesions Neurological: Denies: headache Past Medical History Past Medical History: No Reported History, GERD/Reflux Additional Past Medical History / Comment(s): crohns, KIDNEY STONES, History of Any Multi-Drug Resistant Organisms: None Reported Past Surgical History: Adenoidectomy, Hernia Repair Additional Past Surgical History / Comment(s): RT NGUIAL HERNIA REPAIR. SX FOR DEVIATED SEPTUM Past Anesthesia/Blood Transfusion Reactions: No Reported Reaction Past Psychological History: No Psychological Hx Reported Smoking Status: Current every day smoker Past Alcohol Use History: None Reported Past Drug Use History: None Reported - Past Family History Mother Family Medical History: Thyroid Disorder Additional Family Medical History / Comment(s): MOM AGE 50 FROM COMPLICATIONS OF MS Father Family Medical History: Hypertension General Exam Limitations: no limitations General appearance: alert, in no apparent distress Head exam: Present: atraumatic, normocephalic Eye exam: Present: normal appearance, PERRL ENT exam: Present: normal exam, mucous membranes moist Neck exam: Present: normal inspection Respiratory exam: Present: wheezes, prolonged expiratory. Absent: respiratory distress, chest wall tenderness, accessory muscle use, decreased breath sounds Cardiovascular Exam: Present: regular rate, normal rhythm, normal heart sounds GI/Abdominal exam: Present: soft. Absent: distended, tenderness Rectal exam: Present: deferred Extremities exam: Present: normal inspection Back exam: Present: normal inspection Neurological exam: Present: alert, oriented X3 Psychiatric exam: Present: normal affect, normal mood Skin exam: Present: warm, dry, intact Course Vital Signs 04/24/17 04/24/17 04/24/17 18:50 19:50 20:02 Temperature 98.2 F Pulse Rate 101 H 100 100 Respiratory 18 Rate Blood Pressure 125/69 O2 Sat by Pulse 94 L Oximetry Medical Decision Making - Medical Decision Making Patient presents with a chief complaint of cough and shortness of breath. Patient has a history of asthma. 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 Patient states that he does not have a rescue inhaler at his disposal at this time. On initial evaluation, patient's vital signs are stable. Patient has wheezy breath sounds throughout all lung roberts. There is a prolonged expiratory phase. Patient will get breathing treatments in the emergency department along with a dose of steroids and IV hydration. We'll check basic labs, get a chest x -ray. 16. Chest x-ray shows no acute process. Laboratory is unremarkable. Patient was breathing easier after breathing treatments and steroids. Ambulatory pulse ox shows a consistent saturation of 96%. At this time, patient is stable for discharge. My impression is bronchitis, asthma. Patient was prescribed azithromycin, and albuterol inhaler. He is instructed to follow up with primary care or to return to the emergency department if his symptoms worsen or change in anyway. - Lab Data Result diagrams: 04/24/17 19:40 04/24/17 19:40 Lab Results 04/24/17 04/24/17 Range/Units 19:40 19:40 WBC 8.3 (3.8-10.6) k/uL RBC 5.08 (4.30-5.90) m/uL Hgb 15.9 (13.0-17.5) gm/dL Hct 47.4 (39.0-53.0) % MCV 93.3 (80.0-100.0) fL MCH 31.2 (25.0-35.0) pg MCHC 33.4 (31.0-37.0) g/dL RDW 15.1 (11.5-15.5) % Plt Count 176 (150-450) k/uL Neutrophils % 69 % Lymphocytes % 20 % Monocytes % 6 % Eosinophils % 0 % Basophils % 1 % Neutrophils # 5.7 (1.3-7.7) k/uL Lymphocytes # 1.7 (1.0-4.8) k/uL Monocytes # 0.5 (0-1.0) k/uL Eosinophils # 0.0 (0-0.7) k/uL Basophils # 0.1 (0-0.2) k/uL Sodium 138 (137-145) mmol/L Potassium 4.4 (3.5-5.1) mmol/L Chloride 98 (98-107) mmol/L Carbon Dioxide 27 (22-30) mmol/L Anion Gap 13 mmol/L BUN 20 (9-20) mg/dL Creatinine 0.80 (0.66-1.25) mg/dL Est GFR (MDRD) Af Amer >60 (>60 ml/min/1.73 sqM) Est GFR (MDRD) Non-Af >60 (>60 ml/min/1.73 sqM) Glucose 93 (74-99) mg/dL Calcium 9.0 (8.4-10.2) mg/dL Disposition Clinical Impression: Asthma exacerbation, Bronchitis Disposition: HOME SELF-CARE Condition: Good Instructions: Asthma (ED), Acute Bronchitis (ED), How to Stop Smoking (ED) Prescriptions: Albuterol Inhaler [Ventolin Hfa Inhaler] 1 - 2 puff INHALATION Q4HR #2 inhaler Azithromycin 250 mg PO DAILY #6 tab predniSONE 60 mg PO DAILY #12 tab Referrals: None,Stated [Primary Care Provider] - 1-2 days
[2017-04-24 20:03] LABS: Basophils # (A) 0.1 k/uL (0-0.2); Basophils % (A) 1 %; CH 32.5; Eosinophils % (A) 0 %; HCT 47.4 % (39.0-53.0); HGB 15.9 gm/dL (13.0-17.5); Luc # (Auto) 0.32; Luc % (Auto) 4; Lymphocytes # (A) 1.7 k/uL (1.0-4.8); Lymphocytes % (A) 20 %; MCH 31.2 pg (25.0-35.0); MCHC 33.4 g/dL (31.0-37.0); MCV 93.3 fL (80.0-100.0); Mean Platelet Volume 7.6; Monocytes # (A) 0.5 k/uL (0-1.0); Monocytes % (A) 6 %; Neutrophils # (A) 5.7 k/uL (1.3-7.7); Neutrophils % (A) 69 %; RBC 5.08 m/uL (4.30-5.90); RDW 15.1 % (11.5-15.5); WBC 8.3 k/uL (3.8-10.6); WBC (Perox) 7.79
[2017-04-24 20:16] LABS: Anion Gap 13 mmol/L; Blood Urea Nitrogen 20 mg/dL (9-20); Carbon Dioxide 27 mmol/L (22-30); Chloride 98 mmol/L (98-107); Glucose 93 mg/dL (74-99); Non-African American GFR(MDRD) >60 (>60 ml/min/1.73 sqM); Potassium 4.4 mmol/L (3.5-5.1); Sodium 138 mmol/L (137-145)
--- NOTE | 2017-04-24 20:31 | XR ---
EXAMINATION TYPE: XR chest 2V DATE OF EXAM: 04/24/2017 COMPARISON: NONE HISTORY: Dyspnea and cough and congestion TECHNIQUE: Frontal and lateral views of the chest are obtained. FINDINGS: There is no focal air space opacity, pleural effusion, or pneumothorax seen. The cardiac silhouette size is within normal limits. The osseous structures are intact. IMPRESSION: No acute cardiopulmonary process.
[2017-04-24 21:19] VITALS: BP 130/65; PULSE 88; RESP 94; TEMP 99.1
== END 2017-04-24 21:29 | disposition home or self-care (01) ==
LOC: EC 18:23
DX: J45.901 Unspecified asthma with (acute) exacerbation (principal); F17.200 Nicotine dependence, unspecified, uncomplicated; Z88.8 Allergy status to other drugs, medicaments and biological substances; Z53.8 Procedure and treatment not carried out for other reasons
CPT/HCPCS: 36415; 80048; 85025; 71020; 99283; 96374; 96361 ×2; J2930

== ENCOUNTER 2018-08-14 10:50 | Emergency (ER) | payer OTHER ==
[2018-08-14] MEDS ORDERED: ONDANSETRON 4 MG/2 ML VIAL IVP STA (11:03)
[2018-08-14] MEDS ORDERED: HYDROmorphone 1 MG/ML 1 ML SYRINGE IVP STA (11:03)
[2018-08-14] MEDS ORDERED: SODIUM CHLORIDE 0.9% 500 ML 500 ML IV STA (11:03)
--- NOTE | 2018-08-14 11:07 | ED ---
General Adult HPI - General Chief complaint: Abdominal Pain Stated complaint: poss Crohns flare Source: patient, RN notes reviewed Mode of arrival: ambulatory Limitations: no limitations - History of Present Illness Initial comments: This is a 38-year-old male with past medical history significant for Crohn's disease. Patient states he has had abscesses in his abdomen before. Patient states this pain started yesterday and worsened today on the left side and it feels as though it is same pain he had when he had his abscesses. Patient states the pain was on the right before the first time CAT scan of pain in the left side. Patient states she's nauseated but has not vomited. Patient states she's had diarrhea but no blood in his stools. Patient denies any fever but did have chills today. Patient denies any chest pain or cough. Patient denies any difficult breathing shortness of breath. Patient denies any dysuria hematuria urinary frequency. - Related Data Home Medications Medication Instructions Recorded Confirmed Ibuprofen [Motrin Ib] 400 mg PO Q6H PRN 08/14/18 08/14/18 Previous Rx's Medication Instructions Recorded Hydrocodone/Acetaminophen [[place] 1 each PO Q4HR PRN #14 tab 08/14/18 5-325] Ketorolac [Toradol] 10 mg PO Q6HR #15 tab 08/14/18 Tamsulosin HCl [Flomax] 0.4 mg PO DAILY 7 Days #7 capsule 08/14/18 Allergies Allergy/AdvReac Type Severity Reaction Status Date / Time diphenhydramine AdvReac Unknown Rapid Verified 08/14/18 11:06 [From Benadryl] Heart Rate Review of Systems ROS Statement: Those systems with pertinent positive or pertinent negative responses have been documented in the HPI. ROS Other: All systems not noted in ROS Statement are negative. Past Medical History Past Medical History: GERD/Reflux Additional Past Medical History / Comment(s): crohns, KIDNEY STONES, History of Any Multi-Drug Resistant Organisms: None Reported Past Surgical History: Adenoidectomy, Hernia Repair Additional Past Surgical History / Comment(s): RT NGUIAL HERNIA REPAIR. SX FOR DEVIATED SEPTUM Past Anesthesia/Blood Transfusion Reactions: No Reported Reaction Past Psychological History: No Psychological Hx Reported Smoking Status: Current every day smoker Past Alcohol Use History: None Reported Past Drug Use History: None Reported - Past Family History Mother Family Medical History: Thyroid Disorder Additional Family Medical History / Comment(s): MOM AGE 50 FROM COMPLICATIONS OF MS Father Family Medical History: Hypertension General Exam - General Exam Comments Initial Comments: GENERAL: Patient is well-developed and well-nourished. Patient is nontoxic and well- hydrated and is in mild distress. ENT: Neck is soft and supple. No significant lymphadenopathy is noted. Neck has full range of motion without eliciting any pain. EYES: The sclera were anicteric and conjunctiva were pink and moist. Extraocular movements were intact and pupils were equal round and reactive to light. Eyelids were unremarkable. PULMONARY: Unlabored respirations. Good breath sounds bilaterally. No audible rales rhonchi or wheezing was noted. CARDIOVASCULAR: There is a regular rate and rhythm without any murmurs gallops or rubs. Femoral pulses are equal bilaterally ABDOMEN: Patient has pain in the left mid abdomen. No rebound or guarding No palpable organomegaly was noted. There is no palpable pulsatile mass. SKIN: Skin is clear with no lesions or rashes and otherwise unremarkable. NEUROLOGIC: Patient is alert and oriented x3. Cranial nerves II through XII are grossly intact. Motor and sensory are also intact. Normal speech, volume and content. Symmetrical smile. MUSCULOSKELETAL: Normal extremities with adequate strength and full range of motion. No lower extremity swelling or edema. No calf tenderness. LYMPHATICS: No significant lymphadenopathy is noted PSYCHIATRIC: Normal psychiatric evaluation. Limitations: no limitations Course Vital Signs 08/14/18 10:53 Temperature 97.9 F Pulse Rate 62 Respiratory 20 Rate Blood Pressure 158/104 O2 Sat by Pulse 98 Oximetry Medical Decision Making - Medical Decision Making CT shows a 5 mm distal left ureteral stone with some hydronephrosis. Patient states she's had kidney stones before. - Lab Data Result diagrams: 08/14/18 11:25 08/14/18 11:25 Lab Results 08/14/18 08/14/18 08/14/18 Range/Units 11:25 11:25 11:39 WBC 7.0 (3.8-10.6) k/uL RBC 4.89 (4.30-5.90) m/uL Hgb 15.4 (13.0-17.5) gm/dL Hct 45.4 (39.0-53.0) % MCV 93.0 (80.0-100.0) fL MCH 31.5 (25.0-35.0) pg MCHC 33.9 (31.0-37.0) g/dL RDW 12.7 (11.5-15.5) % Plt Count 276 (150-450) k/uL Neutrophils % 71 % Lymphocytes % 20 % Monocytes % 4 % Eosinophils % 3 % Basophils % 0 % Neutrophils # 4.9 (1.3-7.7) k/uL Lymphocytes # 1.4 (1.0-4.8) k/uL Monocytes # 0.3 (0-1.0) k/uL Eosinophils # 0.2 (0-0.7) k/uL Basophils # 0.0 (0-0.2) k/uL ESR 6 (0-15) mm/hr Sodium 144 (137-145) mmol/L Potassium 4.6 (3.5-5.1) mmol/L Chloride 109 H (98-107) mmol/L Carbon Dioxide 27 (22-30) mmol/L Anion Gap 8 mmol/L BUN 22 H (9-20) mg/dL Creatinine 1.01 (0.66-1.25) mg/dL Est GFR (CKD-EPI)AfAm >90 (>60 ml/min/1.73 sqM) Est GFR (CKD-EPI)NonAf >90 (>60 ml/min/1.73 sqM) Glucose 98 (74-99) mg/dL Calcium 9.6 (8.4-10.2) mg/dL Total Bilirubin 0.3 (0.2-1.3) mg/dL AST 18 (17-59) U/L ALT 29 (21-72) U/L Alkaline Phosphatase 77 (38-126) U/L C-Reactive Protein 6.1 (<10.0) mg/L Total Protein 7.5 (6.3-8.2) g/dL Albumin 4.2 (3.5-5.0) g/dL Amylase 75 (30-110) U/L Lipase 177 (23-300) U/L Urine Color Yellow Urine Appearance Clear (Clear) Urine pH 5.5 (5.0-8.0) Ur Specific [place] 1.021 (1.001-1.035) Urine Protein Trace H (Negative) Urine Glucose (UA) Negative (Negative) Urine Ketones Negative (Negative) Urine Blood Moderate H (Negative) Urine Nitrite Negative (Negative) Urine Bilirubin Negative (Negative) Urine Urobilinogen <2.0 (<2.0) mg/dL Ur Leukocyte Esterase Negative (Negative) Urine RBC 13 H (0-5) /hpf Urine WBC <1 (0-5) /hpf Urine Mucus Rare H (None) /hpf Disposition Clinical Impression: Kidney stone Disposition: HOME SELF-CARE Condition: Good Instructions: Kidney Stones (ED), How to Strain Your Urine (ED) Prescriptions: Hydrocodone/Acetaminophen [[place] 5-325] 1 each PO Q4HR PRN #14 tab PRN Reason: Pain Ketorolac [Toradol] 10 mg PO Q6HR #15 tab Tamsulosin HCl [Flomax] 0.4 mg PO DAILY 7 Days #7 capsule Is patient prescribed a controlled substance at d/c from ED?: Yes When asked, does pt state using other controlled substances?: No If prescribed controlled substance>3 days was MAPS reviewed?: Prescribed <3 Days If opioid is for acute pain is fill amount 7 days or less?: Yes If Rx opioid, was Start Talking consent form obtained?: Yes Referrals: None,Stated [Primary Care Provider] - 1-2 days Time of Disposition: 12:58
[2018-08-14 11:37] LABS: Basophils % (A) 0 %; Eosinophils # (A) 0.2 k/uL (0-0.7); Eosinophils % (A) 3 %; HCT 45.4 % (39.0-53.0); HGB 15.4 gm/dL (13.0-17.5); Lymphocytes # (A) 1.4 k/uL (1.0-4.8); Lymphocytes % (A) 20 %; MCH 31.5 pg (25.0-35.0); MCHC 33.9 g/dL (31.0-37.0); Mean Platelet Volume 7.2; Monocytes # (A) 0.3 k/uL (0-1.0); Monocytes % (A) 4 %; Neutrophils # (A) 4.9 k/uL (1.3-7.7); Neutrophils % (A) 71 %; Platelet Count 276 k/uL (150-450); RBC 4.89 m/uL (4.30-5.90); RDW 12.7 % (11.5-15.5)
[2018-08-14 11:52] LABS: ALT 29 U/L (21-72); AST 18 U/L (17-59); Albumin 4.2 g/dL (3.5-5.0); Alkaline Phosphatase 77 U/L (38-126); Amylase 75 U/L (30-110); Anion Gap 8 mmol/L; Blood Urea Nitrogen 22 mg/dL (9-20); C Reactive Protein 6.1 mg/L (<10.0); Calcium 9.6 mg/dL (8.4-10.2); Carbon Dioxide 27 mmol/L (22-30); Chloride 109 mmol/L (98-107); Glucose 98 mg/dL (74-99); Lipase 177 U/L (23-300); Potassium 4.6 mmol/L (3.5-5.1); Sodium 144 mmol/L (137-145); Total Bilirubin 0.3 mg/dL (0.2-1.3); Total Protein 7.5 g/dL (6.3-8.2)
[2018-08-14 11:57] LABS: Appearance,Urine Clear (Clear); Bilirubin,Urine Negative (Negative); Blood,Urine Moderate (Negative); Color,Urine Yellow; Glucose,Urine (UA) Negative (Negative); Ketones,Urine Negative (Negative); Leukocyte Esterase,Urine Negative (Negative); Mucus,Urine Rare /hpf; Nitrite,Urine Negative (Negative); PH, Urine 5.5 (5.0-8.0); Protein,Urine Trace (Negative); RBC,Urine 13 /hpf (0-5); Specific Gravity,Urine 1.021 (1.001-1.035); Urobilinogen,Urine <2.0 mg/dL (<2.0); WBC,Urine <1 /hpf (0-5)
--- NOTE | 2018-08-14 12:19 | CT ---
EXAMINATION TYPE: CT abdomen pelvis wo con DATE OF EXAM: 08/14/2018 COMPARISON: 01/07/2017 HISTORY: Abdominal pain CT DLP: 390.1 mGycm Automated exposure control for dose reduction was used. TECHNIQUE: Helical acquisition of images was performed from the lung bases through the pelvis. FINDINGS: LUNG BASES: No significant abnormality is appreciated. LIVER/GB: Unremarkable unenhanced morphology. No cholelithiasis. PANCREAS: No significant abnormality is seen. SPLEEN: No significant abnormality is seen. ADRENALS: No nodularity or thickening. KIDNEYS: There is nonspecific left-sided perinephric fat stranding and a punctate nonobstructing left upper pole calculus on coronal image 53 and 2 mm left lower pole nonobstructing calculus also seen o n this image. The left calyces are mildly blunted secondary to an obstructing millimeter calculus at the left distal ureter just prior to the left ureterovesicular junction seen on coronal image 46 and 47. No right renal calculi are present. FREE AIR: No free air is visualized RETROPERITONEAL ADENOPATHY: No greater than 1 cm short axis lymph nodes are otherwise within the abd omen or pelvis given the limitation of lack of intravenous contrast and lack of oral contrast. REPRODUCTIVE ORGANS: No significant abnormality is seen OSSEOUS STRUCTURES: Nonspecific sclerotic focus is seen within the left acetabulum inferiorly and wi thin the right superior acetabulum as well as punctate densities in the left superior acetabulum and right iliac bone on image 55. These could represent bone islands but again are nonspecific. Schmorl's node is seen in the superior end plate of L1.. BOWEL: There is long segment thickening of the terminal ileum and distal ileum seen on coronal image 29 and axial image 70 with submucosal fat deposition in the ascending colon and cecum best appreciat ed on the axial image 49. What appears to be the appendix is retrocecal and within normal limits of s ize. Linear high density probable artifact is seen within the right mid abdomen from ingested materia l. Within the distal ileum in the low pelvis there is mild dilatation up to 3.3 cm with small bowel f eces sign indicative of increased transit time. IMPRESSION: 1. 5 MM OBSTRUCTING CALCULUS WITHIN THE LEFT DISTAL URETER JUST PROXIMAL TO THE LEFT URETEROVESICULAR JUNCTION CREATING MILD LEFT-SIDED PERINEPHRIC FAT STRANDING AND MILD LEFT HYDROURETERONEPHROSIS. ADD ITIONAL NONOBSTRUCTING LEFT RENAL CALCULI ARE SEEN. 2. SUBMUCOSAL DEPOSITION OF FAT WITHIN THE ASCENDING COLON AND CECUM WELL LONG SEGMENT BOWEL WA LL THICKENING OF THE DISTAL AND TERMINAL ILEUM SUGGESTING CHRONIC COLITIS. INFLAMMATORY BOWEL DISORDE R SHOULD BE CONSIDERED SUCH CROHN'S DISEASE. ADDITIONALLY THERE IS MILD DILATATION OF THE ILEUM WI TH SMALL BOWEL FECES SIGN INDICATIVE OF INCREASED TRANSIT TIME AND ILEUS.
[2018-08-14 12:29] LABS: Erythrocyte Sedimentation Rate 6 mm/hr (0-15)
--- NOTE | 2018-08-14 12:55 | XR ---
EXAMINATION TYPE: XR KUB DATE OF EXAM: 08/14/2018 COMPARISON: 06/04/2016 INDICATION: Left-sided abdominal pain, history of kidney stones TECHNIQUE: Abdomen frontal projection upright view FINDINGS: Nonspecific bowel gas is present. There is differential air-fluid levels small bowel loops in the lef t midabdomen. Distal bowel gas is present. Colonic bowel gas is in the descending colon. Psoas margins are normal. No organomegaly is present. No suspicious calcifications evident IMPRESSION: 1. Nonspecific abdomen. Differential air-fluid level left mid abdomen jejunum.
[2018-08-14] MEDS ORDERED: KETOROLAC 30 MG/ML 1 ML VIAL IVP STA (13:13)
[2018-08-14 13:22] VITALS: BP 132/86; PULSE 63; RESP 18; TEMP 97.8
== END 2018-08-14 13:27 | disposition home or self-care (01) ==
LOC: EC 10:50
DX: N13.2 Hydronephrosis with renal and ureteral calculous obstruction (principal); R19.7 Diarrhea, unspecified; F17.200 Nicotine dependence, unspecified, uncomplicated; Z88.8 Allergy status to other drugs, medicaments and biological substances
CPT/HCPCS: 36415; 80053; 85652; 82150; 83690; 85025; 86140; 81001; 74018; 74176; 99284; 96374; 96375 ×2; 96361; J2405; J1885; J1170

== ENCOUNTER 2018-08-14 20:20 | Emergency (ER) | payer OTHER ==
[2018-08-14 20:42] VITALS: TEMP 98.1
[2018-08-14] MEDS ORDERED: KETOROLAC 30 MG/ML 1 ML VIAL IVP ONE (21:10)
[2018-08-14] MEDS ORDERED: SODIUM CHLORIDE 0.9% 1,000 ML IV ONE (21:10)
[2018-08-14] MEDS ORDERED: HYDROcodone/APAP 5-325MG 1 EACH TAB PO STA (21:25)
[2018-08-14 21:31] LABS: Basophils # (A) 0.1 k/uL (0-0.2); Basophils % (A) 0 %; Eosinophils # (A) 0.3 k/uL (0-0.7); Eosinophils % (A) 2 %; HGB 13.6 gm/dL (13.0-17.5); Lymphocytes # (A) 2.2 k/uL (1.0-4.8); Lymphocytes % (A) 20 %; MCH 31.3 pg (25.0-35.0); MCHC 33.9 g/dL (31.0-37.0); MCV 92.4 fL (80.0-100.0); Monocytes # (A) 0.7 k/uL (0-1.0); Monocytes % (A) 7 %; Neutrophils # (A) 7.4 k/uL (1.3-7.7); Neutrophils % (A) 69 %; Platelet Count 232 k/uL (150-450); RBC 4.33 m/uL (4.30-5.90); RDW 12.6 % (11.5-15.5); WBC 10.7 k/uL (3.8-10.6)
[2018-08-14 21:36] LABS: Calcium 9.3 mg/dL (8.4-10.2); Potassium 4.2 mmol/L (3.5-5.1)
--- NOTE | 2018-08-14 21:41 | ED ---
Abdominal Pain HPI - General Source: patient Mode of arrival: ambulatory Limitations: no limitations <Bonita Doan - Last Filed: 08/14/18 21:46> <Rhys Ng - Last Filed: 08/14/18 23:43> - General Chief Complaint: Abdominal Pain Stated Complaint: Kidney stones Time Seen by Provider: 08/14/18 21:03 - History of Present Illness Initial Comments: Joel is a 38-year-old male who presents the emergency department today for evaluation of persistent left-sided flank pain. Patient was seen and evaluated in our department earlier today, labs are unremarkable, computed tomography scan revealed a 5 mm distal ureteral stone with mild [place]. Patient was treated with Toradol and Dilaudid with resolution of his pain, he was discharged home with prescriptions for [place], Toradol and Flomax. Patient states that he has been unable to fill his prescriptions due to financial constraints therefore he returns to the emergency department today for reevaluation of the pain. Patient reports he's been nauseated but not vomiting. His been able to hold down fluids. He denies any additional complaints. (Bonita Doan) - Related Data Home Medications Medication Instructions Recorded Confirmed Ibuprofen [Motrin Ib] 400 mg PO Q6H PRN 08/14/18 08/14/18 Previous Rx's Medication Instructions Recorded Hydrocodone/Acetaminophen [[place] 1 each PO Q4HR PRN #14 tab 08/14/18 5-325] Tamsulosin HCl [Flomax] 0.4 mg PO DAILY 7 Days #7 capsule 08/14/18 Allergies Allergy/AdvReac Type Severity Reaction Status Date / Time diphenhydramine AdvReac Unknown Rapid Verified 08/14/18 21:27 [From Benadryl] Heart Rate Review of Systems ROS Other: All systems not noted in ROS Statement are negative. <Bonita Doan - Last Filed: 08/14/18 21:46> ROS Other: All systems not noted in ROS Statement are negative. <Rhys Ng - Last Filed: 08/14/18 23:43> ROS Statement: Those systems with pertinent positive or pertinent negative responses have been documented in the HPI. Past Medical History Past Medical History: GERD/Reflux Additional Past Medical History / Comment(s): crohns, KIDNEY STONES, History of Any Multi-Drug Resistant Organisms: None Reported Past Surgical History: Adenoidectomy, Hernia Repair Additional Past Surgical History / Comment(s): RT NGUIAL HERNIA REPAIR. SX FOR DEVIATED SEPTUM Past Anesthesia/Blood Transfusion Reactions: No Reported Reaction Past Psychological History: No Psychological Hx Reported Smoking Status: Current every day smoker Past Alcohol Use History: None Reported Past Drug Use History: None Reported - Past Family History Mother Family Medical History: Thyroid Disorder Additional Family Medical History / Comment(s): MOM AGE 50 FROM COMPLICATIONS OF MS Father Family Medical History: Hypertension <Bonita Doan - Last Filed: 08/14/18 21:46> General Exam Limitations: no limitations <Bonita Doan - Last Filed: 08/14/18 21:46> <Rhys Ng - Last Filed: 08/14/18 23:43> - General Exam Comments Initial Comments: Physical Exam GENERAL: Patient is well-developed and well-nourished. Patient is nontoxic and well-hydrated and is in mild distress. HENT: Normocephalic, Atraumatic. EYES: PERRL, EOMI PULMONARY: Unlabored respirations. No audible rales rhonchi or wheezing was noted. CARDIOVASCULAR: There is a regular rate and rhythm without any murmurs gallops or rubs. ABDOMEN: Soft and nontender with normal bowel sounds. Tenderness to percussion left flank SKIN: Skin is clear with no lesions or rashes and otherwise unremarkable. : Deferred NEUROLOGIC: Patient is alert and oriented x3. Moving all extremities spontaneously MUSCULOSKELETAL: Normal extremities with adequate strength and full range of motion. No lower extremity swelling or edema. No calf tenderness. PSYCHIATRIC: Normal psychiatric evaluation. Limitations: no limitations (Bonita Doan) Course <Bonita Doan - Last Filed: 08/14/18 21:46> <Rhys Ng - Last Filed: 08/14/18 23:43> Vital Signs 08/14/18 08/14/18 20:39 23:34 Temperature 98.1 F Pulse Rate 63 65 Respiratory 19 18 Rate Blood Pressure 139/88 147/96 O2 Sat by Pulse 97 100 Oximetry - Reevaluation(s) Reevaluation #1: 08/14/18 23:42 medical record and prior ED visit is reviewed (Rhys Ng) Reevaluation #2: 08/14/18 23:42 spoke with urology and suggest discharge (Rhys Ng) Reevaluation #3: 08/14/18 23:42 aptient has pain control (Rhys Ng) Medical Decision Making - Lab Data Result diagrams: 08/14/18 21:10 08/14/18 21:10 <Bonita Doan - Last Filed: 08/14/18 21:46> - Lab Data Result diagrams: 08/14/18 21:10 08/14/18 21:10 <Rhys Ng - Last Filed: 08/14/18 23:43> - Medical Decision Making The patient was seen and evaluated, history was obtained from patient and review of medical record Patient with persistent pain secondary to kidney stone - unable to obtain PO medications outpatient Labs, toradol, IVF and [place] ordered Patient expressing upset that he has not been given Dilaudid - requesting new physician to take over care Patient care discussed with Dr. Ng who will take over patient care ( Bonita Doan) 38 male to the ED, patient has pain control and can be discharged (Rhys Ng) - Lab Data Lab Results 08/14/18 08/14/18 Range/Units 21:10 21:10 WBC 10.7 H (3.8-10.6) k/uL RBC 4.33 (4.30-5.90) m/uL Hgb 13.6 (13.0-17.5) gm/dL Hct 40.0 (39.0-53.0) % MCV 92.4 (80.0-100.0) fL MCH 31.3 (25.0-35.0) pg MCHC 33.9 (31.0-37.0) g/dL RDW 12.6 (11.5-15.5) % Plt Count 232 (150-450) k/uL Neutrophils % 69 % Lymphocytes % 20 % Monocytes % 7 % Eosinophils % 2 % Basophils % 0 % Neutrophils # 7.4 (1.3-7.7) k/uL Lymphocytes # 2.2 (1.0-4.8) k/uL Monocytes # 0.7 (0-1.0) k/uL Eosinophils # 0.3 (0-0.7) k/uL Basophils # 0.1 (0-0.2) k/uL Sodium 142 (137-145) mmol/L Potassium 4.2 (3.5-5.1) mmol/L Chloride 109 H (98-107) mmol/L Carbon Dioxide 26 (22-30) mmol/L Anion Gap 7 mmol/L BUN 21 H (9-20) mg/dL Creatinine 1.44 H (0.66-1.25) mg/dL Est GFR (CKD-EPI)AfAm 70 (>60 ml/min/1.73 sqM) Est GFR (CKD-EPI)NonAf 60 (>60 ml/min/1.73 sqM) Glucose 88 (74-99) mg/dL Calcium 9.3 (8.4-10.2) mg/dL Disposition <Bonita Doan P - Last Filed: 08/14/18 21:46> Is patient prescribed a controlled substance at d/c from ED?: No <Rhys Ng - Last Filed: 08/14/18 23:43> Clinical Impression: Kidney stone, Abdominal pain Disposition: HOME SELF-CARE Condition: Good Instructions: Kidney Stones (ED) Referrals: None,Stated [Primary Care Provider] - 1-2 days
[2018-08-14] MEDS ORDERED: HYDROmorphone 1 MG/ML 1 ML SYRINGE IVP STA (22:12)
[2018-08-14] MEDS ORDERED: SODIUM CHLORIDE 0.9% 1,000 ML IV STA (22:48)
[2018-08-14] MEDS ORDERED: SODIUM CHLORIDE 0.9% 500 ML 500 ML IV STA (22:48)
[2018-08-14] MEDS ORDERED: LORazepam 2 MG/ML INJ IV STA (23:10)
[2018-08-14] MEDS ORDERED: HYDROmorphone 1 MG/ML 1 ML SYRINGE IM STA (23:16)
[2018-08-14 23:35] VITALS: BP 147/96; PULSE 65; RESP 18
== END 2018-08-15 01:00 | disposition home or self-care (01) ==
LOC: EC 20:20
DX: N20.0 Calculus of kidney (principal); F17.200 Nicotine dependence, unspecified, uncomplicated; Z88.8 Allergy status to other drugs, medicaments and biological substances
CPT/HCPCS: 99284; 96374; 96375 ×2; 96361 ×2; 36415; 80048; 85025; J2060; J1885; J1170

== ENCOUNTER 2018-08-21 17:49 | Emergency (ER) | payer OTHER ==
[2018-08-21 18:24] VITALS: BP 135/77; PULSE 87; RESP 16; TEMP 97.6
[2018-08-21] MEDS ORDERED: METOCLOPRAMIDE 5 MG/ML 2 ML VIAL IVP STA (19:16)
[2018-08-21] MEDS ORDERED: SODIUM CHLORIDE 0.9% 1,000 ML IV STA (19:16)
[2018-08-21] MEDS ORDERED: methylPREDNISolone SOD SUCCI 125 MG/2 ML VIAL IV STA (19:17)
[2018-08-21] MEDS ORDERED: ACETAMINOPHEN IV (For NPO) 1,000 MG in SALINE 1 100ML.BAG IVPB STA (19:18)
--- NOTE | 2018-08-21 19:20 | ED ---
General Adult HPI - General Chief complaint: Headache Stated complaint: headache Time Seen by Provider: 08/21/18 19:01 Source: patient, RN notes reviewed Mode of arrival: ambulatory Limitations: no limitations - History of Present Illness Initial comments: Patient is a pleasant 38-year-old male presenting to the emergency department with complaints of headache. Onset of symptoms was around 3 AM. Headache was mild at that time. Headache has progressively worsened throughout the day and is now somewhat severe. Patient has some associated photophobia. Patient did have some mild nausea earlier. Patient does get occasional mild headaches however this is more severe. Headache is left-sided. No confusion. No speech problems. No isolated area of weakness. - Related Data Home Medications Medication Instructions Recorded Confirmed Ibuprofen [Motrin Ib] 400 mg PO Q6H PRN 08/14/18 08/21/18 Allergies Allergy/AdvReac Type Severity Reaction Status Date / Time diphenhydramine AdvReac Unknown Rapid Verified 08/21/18 19:27 [From Benadryl] Heart Rate Review of Systems ROS Statement: Those systems with pertinent positive or pertinent negative responses have been documented in the HPI. ROS Other: All systems not noted in ROS Statement are negative. Constitutional: Denies: fever Eyes: Denies: eye pain ENT: Denies: ear pain Respiratory: Denies: cough Cardiovascular: Denies: chest pain Endocrine: Denies: fatigue Gastrointestinal: Denies: abdominal pain Genitourinary: Denies: dysuria Musculoskeletal: Denies: back pain Skin: Denies: rash Neurological: Reports: headache Past Medical History Past Medical History: GERD/Reflux Additional Past Medical History / Comment(s): crohns, KIDNEY STONES, History of Any Multi-Drug Resistant Organisms: None Reported Past Surgical History: Adenoidectomy, Hernia Repair Additional Past Surgical History / Comment(s): RT NGUIAL HERNIA REPAIR. SX FOR DEVIATED SEPTUM Past Anesthesia/Blood Transfusion Reactions: No Reported Reaction Past Psychological History: No Psychological Hx Reported Smoking Status: Current every day smoker Past Alcohol Use History: None Reported Past Drug Use History: None Reported - Past Family History Mother Family Medical History: Thyroid Disorder Additional Family Medical History / Comment(s): MOM AGE 50 FROM COMPLICATIONS OF MS Father Family Medical History: Hypertension General Exam Limitations: no limitations General appearance: alert, in no apparent distress Head exam: Present: atraumatic, normocephalic Eye exam: Present: normal appearance, PERRL, EOMI. Absent: nystagmus ENT exam: Present: normal oropharynx Neck exam: Present: normal inspection Respiratory exam: Present: normal lung sounds bilaterally Cardiovascular Exam: Present: regular rate, normal rhythm GI/Abdominal exam: Present: soft. Absent: tenderness Extremities exam: Present: normal inspection Neurological exam: Present: alert, oriented X3, CN II-XII intact. Absent: motor sensory deficit Expanded Neurological exam: Present: protecting the airway Speech: Present: fluid speech Cranial nerves: EOM's Intact: Normal, Facial Sensation: Normal Cerebellar function: Finger to Nose: Normal Sensory exam: Upper Extremity Light Touch: Normal, Lower Extremity Light Touch: Normal Motor strength exam: RUE: 5, LUE: 5, RLE: 5, LLE: 5 Eye Response: (4) open spontaneously Motor Response: (6) obeys commands Verbal Response: (5) oriented Psychiatric exam: Present: normal affect, normal mood Skin exam: Present: normal color Course Vital Signs 08/21/18 18:22 Temperature 97.6 F Pulse Rate 87 Respiratory 16 Rate Blood Pressure 135/77 O2 Sat by Pulse 99 Oximetry - Reevaluation(s) Reevaluation #1: 08/21/18 20:26 Patient reportedly ripped his IV out and left. Medical Decision Making - Lab Data Result diagrams: 08/21/18 19:20 08/21/18 19:20 Lab Results 08/21/18 08/21/18 08/21/18 Range/Units 19:20 19:20 19:20 WBC 10.0 (3.8-10.6) k/uL RBC 4.65 (4.30-5.90) m/uL Hgb 14.2 (13.0-17.5) gm/dL Hct 43.5 (39.0-53.0) % MCV 93.6 (80.0-100.0) fL MCH 30.6 (25.0-35.0) pg MCHC 32.6 (31.0-37.0) g/dL RDW 13.0 (11.5-15.5) % Plt Count 269 (150-450) k/uL Neutrophils % 62 % Lymphocytes % 27 % Monocytes % 4 % Eosinophils % 4 % Basophils % 1 % Neutrophils # 6.2 (1.3-7.7) k/uL Lymphocytes # 2.7 (1.0-4.8) k/uL Monocytes # 0.4 (0-1.0) k/uL Eosinophils # 0.4 (0-0.7) k/uL Basophils # 0.1 (0-0.2) k/uL PT 9.8 (9.0-12.0) sec INR 0.9 (<1.2) APTT 26.8 (22.0-30.0) sec Sodium 144 (137-145) mmol/L Potassium 4.8 (3.5-5.1) mmol/L Chloride 107 (98-107) mmol/L Carbon Dioxide 29 (22-30) mmol/L Anion Gap 8 mmol/L BUN 20 (9-20) mg/dL Creatinine 1.10 (0.66-1.25) mg/dL Est GFR (CKD-EPI)AfAm >90 (>60 ml/min/1.73 sqM) Est GFR (CKD-EPI)NonAf 84 (>60 ml/min/1.73 sqM) Glucose 98 (74-99) mg/dL Calcium 9.7 (8.4-10.2) mg/dL Total Bilirubin 0.2 (0.2-1.3) mg/dL AST 17 (17-59) U/L ALT 32 (21-72) U/L Alkaline Phosphatase 70 (38-126) U/L Total Protein 7.4 (6.3-8.2) g/dL Albumin 4.2 (3.5-5.0) g/dL Disposition Clinical Impression: Headache Disposition: Left Against Medical Advice Is patient prescribed a controlled substance at d/c from ED?: No Referrals: None,Stated [Primary Care Provider] - 1-2 days Time of Disposition: 20:27
[2018-08-21 19:31] LABS: Basophils # (A) 0.1 k/uL (0-0.2); Basophils % (A) 1 %; Eosinophils # (A) 0.4 k/uL (0-0.7); Eosinophils % (A) 4 %; HCT 43.5 % (39.0-53.0); HGB 14.2 gm/dL (13.0-17.5); Lymphocytes # (A) 2.7 k/uL (1.0-4.8); Lymphocytes % (A) 27 %; MCH 30.6 pg (25.0-35.0); MCHC 32.6 g/dL (31.0-37.0); MCV 93.6 fL (80.0-100.0); Mean Platelet Volume 6.9; Monocytes # (A) 0.4 k/uL (0-1.0); Monocytes % (A) 4 %; Neutrophils # (A) 6.2 k/uL (1.3-7.7); Neutrophils % (A) 62 %; Platelet Count 269 k/uL (150-450); RBC 4.65 m/uL (4.30-5.90)
[2018-08-21 19:39] LABS: ALT 32 U/L (21-72); AST 17 U/L (17-59); Albumin 4.2 g/dL (3.5-5.0); Alkaline Phosphatase 70 U/L (38-126); Anion Gap 8 mmol/L; Blood Urea Nitrogen 20 mg/dL (9-20); Calcium 9.7 mg/dL (8.4-10.2); Carbon Dioxide 29 mmol/L (22-30); Chloride 107 mmol/L (98-107); Glucose 98 mg/dL (74-99); Potassium 4.8 mmol/L (3.5-5.1); Sodium 144 mmol/L (137-145); Total Bilirubin 0.2 mg/dL (0.2-1.3); Total Protein 7.4 g/dL (6.3-8.2)
[2018-08-21 20:03] LABS: INR 0.9 (<1.2); Partial Thromboplastin Time 26.8 sec (22.0-30.0); Prothrombin Time 9.8 sec (9.0-12.0)
== END 2018-08-21 20:32 | disposition left against medical advice (07) ==
LOC: EC 17:49
DX: R51 Headache (principal); R11.0 Nausea; H53.149 Visual discomfort, unspecified; F17.200 Nicotine dependence, unspecified, uncomplicated; Z88.8 Allergy status to other drugs, medicaments and biological substances
CPT/HCPCS: 36415; 80053; 85025; 85610; 85730; 99284; 96374; 96375 ×2; J2765; J2930; J0131

== ENCOUNTER 2018-11-05 23:36 | Emergency (ER) | payer OTHER ==
[2018-11-06 00:30] LABS: Basophils # (A) 0.1 k/uL (0-0.2); Basophils % (A) 1 %; Eosinophils # (A) 0.4 k/uL (0-0.7); Eosinophils % (A) 4 %; HCT 45.1 % (39.0-53.0); HGB 15.2 gm/dL (13.0-17.5); Lymphocytes # (A) 2.9 k/uL (1.0-4.8); Lymphocytes % (A) 29 %; MCH 31.1 pg (25.0-35.0); MCHC 33.7 g/dL (31.0-37.0); MCV 92.4 fL (80.0-100.0); Mean Platelet Volume 6.6; Monocytes # (A) 0.5 k/uL (0-1.0); Monocytes % (A) 5 %; Neutrophils % (A) 60 %; Platelet Count 281 k/uL (150-450); RBC 4.88 m/uL (4.30-5.90); RDW 12.4 % (11.5-15.5)
[2018-11-06 00:40] LABS: Anion Gap 9 mmol/L; Blood Urea Nitrogen 22 mg/dL (9-20); Calcium 9.5 mg/dL (8.4-10.2); Carbon Dioxide 23 mmol/L (22-30); Chloride 109 mmol/L (98-107); Glucose 119 mg/dL (74-99); Potassium 3.8 mmol/L (3.5-5.1); Sodium 141 mmol/L (137-145)
[2018-11-06] MEDS ORDERED: LORazepam 1 MG TAB PO STA (00:44)
--- NOTE | 2018-11-06 01:18 | ED ---
General Adult HPI - General Chief complaint: Allergic Reaction Stated complaint: Allergic Reaction Time Seen by Provider: 11/05/18 23:50 Source: patient Mode of arrival: ambulatory Limitations: no limitations - History of Present Illness Initial comments: This patient is a 38-year-old man who presents with the complaint that he is feeling a lot of anxiety, and also having trouble sleeping. The patient states he has felt some chest tightness and palpitations. Patient relates that he had within the past few days learned some very stressful news. He states that he did not initially sure this with the triage personnel because he was feeling a little self-conscious. Patient states that he has previously had trouble with anxiety and had been taking Klonopin. He had successfully been weaned off of Klonopin for a bit over a year now. The patient is denying suicidal or homicidal ideation. -: days(s) Consistency: constant Improves with: none Worsens with: none Associated Symptoms: other (Anxiety) Treatments Prior to Arrival: none - Related Data Home Medications Medication Instructions Recorded Confirmed Ibuprofen [Motrin Ib] 400 mg PO Q6H PRN 08/14/18 08/21/18 Previous Rx's Medication Instructions Recorded LORazepam [Ativan] 1 mg PO HS PRN 3 Days #5 tab 11/06/18 Allergies Allergy/AdvReac Type Severity Reaction Status Date / Time diphenhydramine AdvReac Unknown Rapid Verified 08/21/18 19:27 [From Benadryl] Heart Rate Review of Systems ROS Statement: Those systems with pertinent positive or pertinent negative responses have been documented in the HPI. ROS Other: All systems not noted in ROS Statement are negative. Constitutional: Denies: fever, chills Respiratory: Reports: dyspnea. Denies: cough Cardiovascular: Reports: palpitations. Denies: chest pain, syncope Gastrointestinal: Denies: abdominal pain, nausea, vomiting Musculoskeletal: Denies: back pain Neurological: Denies: headache, weakness, numbness Psychiatric: Reports: anxiety. Denies: depression, auditory hallucinations, visual hallucinations, homicidal thoughts, suicidal thoughts Past Medical History Past Medical History: GERD/Reflux Additional Past Medical History / Comment(s): crohns, KIDNEY STONES, History of Any Multi-Drug Resistant Organisms: None Reported Past Surgical History: Adenoidectomy, Hernia Repair Additional Past Surgical History / Comment(s): RT NGUIAL HERNIA REPAIR. SX FOR DEVIATED SEPTUM, Past Anesthesia/Blood Transfusion Reactions: No Reported Reaction Past Psychological History: No Psychological Hx Reported Smoking Status: Current every day smoker Past Alcohol Use History: None Reported Past Drug Use History: None Reported - Past Family History Mother Family Medical History: Thyroid Disorder Additional Family Medical History / Comment(s): MOM AGE 50 FROM COMPLICATIONS OF MS Father Family Medical History: Hypertension General Exam Limitations: no limitations General appearance: alert, in no apparent distress Head exam: Present: atraumatic, normocephalic Eye exam: Present: normal appearance. Absent: scleral icterus, conjunctival injection Respiratory exam: Present: normal lung sounds bilaterally. Absent: respiratory distress, wheezes, rales, rhonchi, stridor Cardiovascular Exam: Present: regular rate, normal rhythm, normal heart sounds. Absent: systolic murmur, diastolic murmur, rubs, gallop GI/Abdominal exam: Present: soft. Absent: distended, tenderness, guarding, rebound, mass Neurological exam: Present: alert Psychiatric exam: Present: anxious. Absent: depressed, agitated, flat affect, manic, homicidal ideation, suicidal ideation Skin exam: Present: warm, dry, intact, normal color. Absent: rash Course Vital Signs 11/05/18 23:40 Temperature 98.2 F Pulse Rate 106 H Respiratory 18 Rate Blood Pressure 133/89 O2 Sat by Pulse 100 Oximetry EKG Findings - EKG Results: EKG: interpreted by WAQAR JENKINS, sinus rhythm (Rate 91 bpm), normal axis, normal QRS, normal ST/T, no acute changes Medical Decision Making - Lab Data Result diagrams: 11/06/18 00:20 11/06/18 00:20 Lab Results 11/06/18 11/06/18 Range/Units 00:20 00:20 WBC 10.0 (3.8-10.6) k/uL RBC 4.88 (4.30-5.90) m/uL Hgb 15.2 (13.0-17.5) gm/dL Hct 45.1 (39.0-53.0) % MCV 92.4 (80.0-100.0) fL MCH 31.1 (25.0-35.0) pg MCHC 33.7 (31.0-37.0) g/dL RDW 12.4 (11.5-15.5) % Plt Count 281 (150-450) k/uL Neutrophils % 60 % Lymphocytes % 29 % Monocytes % 5 % Eosinophils % 4 % Basophils % 1 % Neutrophils # 6.0 (1.3-7.7) k/uL Lymphocytes # 2.9 (1.0-4.8) k/uL Monocytes # 0.5 (0-1.0) k/uL Eosinophils # 0.4 (0-0.7) k/uL Basophils # 0.1 (0-0.2) k/uL Sodium 141 (137-145) mmol/L Potassium 3.8 (3.5-5.1) mmol/L Chloride 109 H (98-107) mmol/L Carbon Dioxide 23 (22-30) mmol/L Anion Gap 9 mmol/L BUN 22 H (9-20) mg/dL Creatinine 0.85 (0.66-1.25) mg/dL Est GFR (CKD-EPI)AfAm >90 (>60 ml/min/1.73 sqM) Est GFR (CKD-EPI)NonAf >90 (>60 ml/min/1.73 sqM) Glucose 119 H (74-99) mg/dL Calcium 9.5 (8.4-10.2) mg/dL TSH 1.510 (0.465-4.680) mIU/L Disposition Clinical Impression: Stress reaction, mixed disorders Disposition: HOME SELF-CARE Condition: Good Instructions (If sedation given, give patient instructions): Stress (ED) Prescriptions: LORazepam [Ativan] 1 mg PO HS PRN 3 Days #5 tab PRN Reason: Insomnia Is patient prescribed a controlled substance at d/c from ED?: No Referrals: None,Stated [Primary Care Provider] - 1-2 days
[2018-11-06 01:42] VITALS: BP 124/84; PULSE 73; RESP 17; TEMP 98.6
== END 2018-11-06 01:30 | disposition home or self-care (01) ==
LOC: EC 23:36
DX: F43.9 Reaction to severe stress, unspecified (principal); F41.8 Other specified anxiety disorders; R07.89 Other chest pain; R00.2 Palpitations; F17.200 Nicotine dependence, unspecified, uncomplicated; Z88.8 Allergy status to other drugs, medicaments and biological substances
CPT/HCPCS: 36415; 80048; 84443; 85025; 99283

== ENCOUNTER 2019-03-31 10:52 | Inpatient (IN) | payer OTHER ==
[2019-03-31] MEDS ORDERED: SODIUM CHLORIDE 0.9% 1,000 ML IV STA (13:20)
[2019-03-31 13:45] LABS: Basophils % (A) 0 %; Eosinophils # (A) 0.3 k/uL (0-0.7); Eosinophils % (A) 3 %; HGB 14.2 gm/dL (13.0-17.5); Lymphocytes # (A) 1.4 k/uL (1.0-4.8); Lymphocytes % (A) 15 %; MCH 30.8 pg (25.0-35.0); MCV 93.2 fL (80.0-100.0); Mean Platelet Volume 7.1; Monocytes # (A) 0.4 k/uL (0-1.0); Monocytes % (A) 4 %; Neutrophils % (A) 76 %; Platelet Count 244 k/uL (150-450); RBC 4.62 m/uL (4.30-5.90); RDW 13.1 % (11.5-15.5); WBC 9.2 k/uL (3.8-10.6)
[2019-03-31] MEDS ORDERED: HYDROmorphone 1 MG/ML 1 ML SYRINGE IVP STA (13:47)
--- NOTE | 2019-03-31 13:50 | ED ---
General Adult HPI - General Chief complaint: Abdominal Pain Stated complaint: abdominal pain Time Seen by Provider: 03/31/19 13:15 Source: patient Mode of arrival: ambulatory Limitations: no limitations - History of Present Illness Initial comments: Dictation was produced using [employer] dictation software. please excuse any grammatical, word or spelling errors. Chief Complaint: 39-year-old male past medical history of Crohn's disease presents with abdominal pain. History of Present Illness: Yadav is a 39-year-old male presents with abdominal pain since yesterday. Patient has a history of Crohn's disease. He states that he had multiple holes in his bowel wall. Patient is here today because of his pain. Patient states she's been nauseous however not vomiting. States his pain is in the at the periumbilical area and right lower quadrant. Patient states his symptoms are similar to when he was diagnosed with Crohn's flare in the past. It has any fever, chills or night sweats. No urinary symptoms. The ROS documented in this emergency department record has been reviewed and confirmed by me. Those systems with pertinent positive or negative responses have been documented in the HPI. All other systems are other negative and/or noncontributory. PHYSICAL EXAM: General Impression: Alert and oriented x3, not in acute distress HEENT: Normocephalic atraumatic, extra-ocular movements intact, pupils equal and reactive to light bilaterally, mucous membranes moist. Cardiovascular: Heart regular rate and rhythm, S1&S2 audible, no murmurs, rubs or gallops Chest: Lungs clear to auscultation bilaterally, no rhonchi, no wheeze, no rales Abdomen: Bowel sounds present, abdomen soft, mild tenderness to palpation, non- distended, no organomegaly Musculoskeletal: Pulses present and equal in all extremities, no peripheral edema Motor: no focal deficits noted Neurological: CN II-XII grossly intact, no focal motor or sensory deficits noted Skin: Intact with no visualized rashes Psych: Normal affect and mood ED course: 39-year-old male with past nuchal history of Crohn's disease presents with abdominal pain. Ends upon arrival are within acceptable limits. Patient is well-appearing. He does have pain with palpation to the lower abdominal area. Laboratory evaluation obtained showing no acute processes. Metabolic panel is unremarkable. Urinalysis shows [address] of the abdomen and pelvis was obtained showing active inflammation with moderate wall thickening. There is also multiple fluid-filled small bowel loops with partial small bowel obstruction with this inflammation. There is also concern of early fistula formation. Patient care was discussed with vaccine manager Dr. Narvaez who recommends nothing by mouth and 60 mg of Solu-Medrol Q8 hours. Patient be admitted to [facility]. Discussed with Dr. Cadena who is willing to accept patients care. - Related Data Home Medications Medication Instructions Recorded Confirmed clonazePAM [KlonoPIN] 0.5 mg PO DAILY PRN 03/31/19 03/31/19 Allergies Allergy/AdvReac Type Severity Reaction Status Date / Time diphenhydramine AdvReac Unknown Rapid Verified 03/31/19 13:25 [From Benadryl] Heart Rate Review of Systems ROS Statement: Those systems with pertinent positive or pertinent negative responses have been documented in the HPI. ROS Other: All systems not noted in ROS Statement are negative. Past Medical History Past Medical History: GERD/Reflux Additional Past Medical History / Comment(s): crohns, KIDNEY STONES, History of Any Multi-Drug Resistant Organisms: None Reported Past Surgical History: Adenoidectomy, Hernia Repair Additional Past Surgical History / Comment(s): RT NGUIAL HERNIA REPAIR. SX FOR DEVIATED SEPTUM, Past Anesthesia/Blood Transfusion Reactions: No Reported Reaction Past Psychological History: No Psychological Hx Reported Smoking Status: Current every day smoker Past Alcohol Use History: None Reported Past Drug Use History: None Reported - Past Family History Mother Family Medical History: Thyroid Disorder Additional Family Medical History / Comment(s): MOM AGE 50 FROM COMPLICATIONS OF MS Father Family Medical History: Hypertension General Exam Limitations: no limitations Course Vital Signs 03/31/19 11:15 Temperature 98 F Pulse Rate 88 Respiratory 18 Rate Blood Pressure 112/72 O2 Sat by Pulse 98 Oximetry Medical Decision Making - Lab Data Result diagrams: 03/31/19 13:30 03/31/19 13:30 Lab Results 03/31/19 03/31/19 03/31/19 Range/Units 13:30 13:30 13:30 WBC 9.2 (3.8-10.6) k/uL RBC 4.62 (4.30-5.90) m/uL Hgb 14.2 (13.0-17.5) gm/dL Hct 43.0 (39.0-53.0) % MCV 93.2 (80.0-100.0) fL MCH 30.8 (25.0-35.0) pg MCHC 33.0 (31.0-37.0) g/dL RDW 13.1 (11.5-15.5) % Plt Count 244 (150-450) k/uL Neutrophils % 76 % Lymphocytes % 15 % Monocytes % 4 % Eosinophils % 3 % Basophils % 0 % Neutrophils # 7.0 (1.3-7.7) k/uL Lymphocytes # 1.4 (1.0-4.8) k/uL Monocytes # 0.4 (0-1.0) k/uL Eosinophils # 0.3 (0-0.7) k/uL Basophils # 0.0 (0-0.2) k/uL PT (9.0-12.0) sec INR (<1.2) Sodium 142 (137-145) mmol/L Potassium 4.4 (3.5-5.1) mmol/L Chloride 107 (98-107) mmol/L Carbon Dioxide 22 (22-30) mmol/L Anion Gap 13 mmol/L BUN 21 H (9-20) mg/dL Creatinine 0.74 (0.66-1.25) mg/dL Est GFR (CKD-EPI)AfAm >90 (>60 ml/min/1.73 sqM) Est GFR (CKD-EPI)NonAf >90 (>60 ml/min/1.73 sqM) Glucose 106 H (74-99) mg/dL Plasma Lactic Acid Narendra 1.7 (0.7-2.0) mmol/L Calcium 9.3 (8.4-10.2) mg/dL Magnesium 2.0 (1.6-2.3) mg/dL Total Bilirubin 0.3 (0.2-1.3) mg/dL AST 20 (17-59) U/L ALT 15 L (21-72) U/L Alkaline Phosphatase 78 (38-126) U/L Total Protein 7.4 (6.3-8.2) g/dL Albumin 4.2 (3.5-5.0) g/dL Lipase 132 (23-300) U/L Urine Color Urine Appearance (Clear) Urine pH (5.0-8.0) Ur Specific Ed[place] (1.001-1.035) Urine Protein (Negative) Urine Glucose (UA) (Negative) Urine Ketones (Negative) Urine Blood (Negative) Urine Nitrite (Negative) Urine Bilirubin (Negative) Urine Urobilinogen (<2.0) mg/dL Ur Leukocyte Esterase (Negative) Urine RBC (0-5) /hpf Urine WBC (0-5) /hpf Urine Mucus (None) /hpf 03/31/19 03/31/19 Range/Units 13:30 13:30 WBC (3.8-10.6) k/uL RBC (4.30-5.90) m/uL Hgb (13.0-17.5) gm/dL Hct (39.0-53.0) % MCV (80.0-100.0) fL MCH (25.0-35.0) pg MCHC (31.0-37.0) g/dL RDW (11.5-15.5) % Plt Count (150-450) k/uL Neutrophils % % Lymphocytes % % Monocytes % % Eosinophils % % Basophils % % Neutrophils # (1.3-7.7) k/uL Lymphocytes # (1.0-4.8) k/uL Monocytes # (0-1.0) k/uL Eosinophils # (0-0.7) k/uL Basophils # (0-0.2) k/uL PT 9.8 (9.0-12.0) sec INR 0.9 (<1.2) Sodium (137-145) mmol/L Potassium (3.5-5.1) mmol/L Chloride (98-107) mmol/L Carbon Dioxide (22-30) mmol/L Anion Gap mmol/L BUN (9-20) mg/dL Creatinine (0.66-1.25) mg/dL Est GFR (CKD-EPI)AfAm (>60 ml/min/1.73 sqM) Est GFR (CKD-EPI)NonAf (>60 ml/min/1.73 sqM) Glucose (74-99) mg/dL Plasma Lactic Acid Narendra (0.7-2.0) mmol/L Calcium (8.4-10.2) mg/dL Magnesium (1.6-2.3) mg/dL Total Bilirubin (0.2-1.3) mg/dL AST (17-59) U/L ALT (21-72) U/L Alkaline Phosphatase (38-126) U/L Total Protein (6.3-8.2) g/dL Albumin (3.5-5.0) g/dL Lipase (23-300) U/L Urine Color Yellow Urine Appearance Clear (Clear) Urine pH 6.0 (5.0-8.0) Ur Specific [place] 1.023 (1.001-1.035) Urine Protein Negative (Negative) Urine Glucose (UA) Negative (Negative) Urine Ketones Negative (Negative) Urine Blood Moderate H (Negative) Urine Nitrite Negative (Negative) Urine Bilirubin Negative (Negative) Urine Urobilinogen <2.0 (<2.0) mg/dL Ur Leukocyte Esterase Negative (Negative) Urine RBC 16 H (0-5) /hpf Urine WBC 1 (0-5) /hpf Urine Mucus Rare H (None) /hpf Disposition Clinical Impression: Abdominal pain Disposition: ADMITTED IP TO THIS [facility] Condition: Fair Referrals: None,Stated [Primary Care Provider] - 1-2 days Decision Time: 15:13
[2019-03-31 13:52] LABS: Appearance,Urine Clear (Clear); Bilirubin,Urine Negative (Negative); Blood,Urine Moderate (Negative); Color,Urine Yellow; Glucose,Urine (UA) Negative (Negative); Ketones,Urine Negative (Negative); Leukocyte Esterase,Urine Negative (Negative); Mucus,Urine Rare /hpf; Nitrite,Urine Negative (Negative); Protein,Urine Negative (Negative); RBC,Urine 16 /hpf (0-5); Specific Gravity,Urine 1.023 (1.001-1.035); Urobilinogen,Urine <2.0 mg/dL (<2.0); WBC,Urine 1 /hpf (0-5)
[2019-03-31 13:53] LABS: ALT 15 U/L (21-72); AST 20 U/L (17-59); African American GFR (CKD) >90 (>60 ml/min/1.73 sqM); Albumin 4.2 g/dL (3.5-5.0); Alkaline Phosphatase 78 U/L (38-126); Anion Gap 13 mmol/L; Blood Urea Nitrogen 21 mg/dL (9-20); Calcium 9.3 mg/dL (8.4-10.2); Carbon Dioxide 22 mmol/L (22-30); Chloride 107 mmol/L (98-107); Glucose 106 mg/dL (74-99); Non-African American GFR(CKD) >90 (>60 ml/min/1.73 sqM); Potassium 4.4 mmol/L (3.5-5.1); Sodium 142 mmol/L (137-145); Total Bilirubin 0.3 mg/dL (0.2-1.3); Total Protein 7.4 g/dL (6.3-8.2)
[2019-03-31 13:55] LABS: INR 0.9 (<1.2); Prothrombin Time 9.8 sec (9.0-12.0)
--- NOTE | 2019-03-31 14:43 | CT ---
EXAMINATION TYPE: CT abdomen pelvis w con DATE OF EXAM: 03/31/2019 COMPARISON: 08/14/2018 HISTORY: 39-year-old male Left sided and epigastric pain TECHNIQUE: Contiguous axial scanning of the abdomen and pelvis following administration of 100 ml Iso robbie 300 IV contrast. Delayed images through the kidneys and coronal/sagittal reconstructions perform ed. CT DLP: 585 mGycm Automated exposure control for dose reduction was used. FINDINGS: Heart normal size without pericardial effusion. Tiny hiatal hernia. Lung bases clear without pleural effusion. Liver enlarged measuring 19.4 cm. No focal lesion seen. Portal venous system is patent. No biliary du ctal dilatation. Gallbladder, adrenal glands, right kidney, spleen, and pancreas appear within normal limits. 1 cm hypodensity posterior left kidney too small for accurate CT characterization, likely cyst. Prominent fluid-filled small bowel loops seen throughout the abdomen. Some of the small bowel loops s how focal thickening in the left upper quadrant measuring up to 3.3 cm. In addition, there is moderat e circumferential wall thickening involving the distal 22 cm of the ileum with contiguous mucosal hyp eremia of the proximal colon. Surrounding fat stranding is present. No pneumatosis. There is some mil d fecalization of small bowel contents proximal to the inflamed segment. The inflamed segment has an unusual finger like extension to the anterior abdominal wall of the right lower quadrant, refer to coronal image 21. Mild stool seen throughout the remainder of the colon. Scattered nonenlarged and mildly enlarged mesenteric lymph nodes are seen throughout measuring up to 8 mm. Bladder urine distended. Multiple pelvic phlebolith. No abnormal fluid collection the pelvis or pelvi c lymphadenopathy. Bones: Multiple bone islands in the pelvis and hips. No osseous destructive process. Stable superior endplate Schmorl's node of L1. IMPRESSION: 1. TERMINAL ILEITIS WITH MODERATE WALL THICKENING AND INFLAMMATION. CORRELATE FOR POSSIBLE ACTIVE EVS ATTENDANT HN'S DISEASE. 2. GIVEN PROMINENT FLUID-FILLED SMALL BOWEL LOOPS THROUGHOUT AND SOME LOOPS DILATED UP TO 3.3 CM, THE RE MAY BE A RELATIVE PARTIAL OBSTRUCTION SECONDARY TO THE DISTAL INFLAMMATION. 3. UNUSUAL FINGERLIKE PROJECTION EXTENDING TO THE RIGHT LOWER QUADRANT ANTERIOR ABDOMINAL WALL FROM T HE INFLAMED SEGMENT OF ILEUM. FOLLOW-UP RECOMMENDED TO EXCLUDE EARLY FISTULA FORMATION. 4. SCATTERED BORDERLINE SIZED MESENTERIC LYMPH NODES MEASURING UP TO 8 MM.
[2019-03-31] MEDS ORDERED: DEXAMETHASONE SOD PHOSPHATE 10 MG/ML 1 ML VIAL IV STA (14:58)
[2019-03-31] MEDS ORDERED: NALOXONE 0.4 MG/ML 1 ML VIAL IV PRN (15:10)
[2019-03-31] MEDS ORDERED: MORPHINE SULFATE 4 MG/ML SYRINGE IV PRN (15:10)
[2019-03-31] MEDS ORDERED: ONDANSETRON 4 MG/2 ML VIAL IVP PRN (15:10)
[2019-03-31] MEDS ORDERED: ACETAMINOPHEN TAB 325 MG TAB PO PRN (15:10)
[2019-03-31] MEDS: HYDROmorphone 1 MG/ML 1 ML SYRINGE IVP PRN ×3 (15:47→22:25)
[2019-03-31] MEDS: SODIUM CHLORIDE 0.9% 1,000 ML IV SCH ×2 (15:48→23:27)
[2019-03-31] MEDS ORDERED: LORazepam 2 MG/ML INJ IV STA (15:57)
[2019-03-31] MEDS: methylPREDNISolone SOD SUCCI 125 MG/2 ML VIAL IV SCH ×2 (16:22→22:25)
--- NOTE | 2019-03-31 18:13 | P.HPIM ---
History of Present Illness H&P Date: 03/31/19 Chief Complaint: Crohn's flare 39-year-old male with past medical history of Crohn's disease over the past 10 years presents the ED for abdominal pain. Patient reports abdominal pain is localized to the right lower quadrant that started yesterday. Pain radiates to the epigastric area. Patient reports the pain is 10 out of 10 in severity, described as bowel twisting in nature. Pain is aggravated with movement and there are no alleviating factors. Patient reports his last bowel movement was yesterday, diarrhea, described as watery stool. Patient denies any hematochezia or melena. He does report that he is passing gas. Patient denies any headaches, lower extremity edema, fever or chills, cough, chest pain, shortness of breath, changes in urination or appetite. Patient does report one episode of nausea and nonbilious nonbloody vomiting yesterday. Patient states that he has been seeing Dr. Buenrostro for his Crohn's disease. States that he gets flareups every 2 months but the last one that required hospitalization was 1-1/2 years ago. Patient also reports that he was told by Dr. Buenrostro that he would require surgery in the immediate future. In the ED, vital signs are stable. CBC was unremarkable. CMP showed a BUN of 21, glucose of 106. Lipase was negative. Urinalysis showed moderate blood. CT of the abdomen and pelvis showed terminal ileitis, relative partial obstruction secondary to distal inflammation, fingerlike projections extending to the right lower quadrant concerning for early fistula formation. Patient is admitted for Crohn's flare, gastroenterology was consulted. Review of Systems Pertinent positives and negatives as discussed in HPI, a complete review of systems was performed and all other systems are negative. Past Medical History Past Medical History: GERD/Reflux Additional Past Medical History / Comment(s): crohns, KIDNEY STONES, History of Any Multi-Drug Resistant Organisms: None Reported Past Surgical History: Adenoidectomy, Hernia Repair Additional Past Surgical History / Comment(s): RT INGUIAL HERNIA REPAIR. SX FOR DEVIATED SEPTUM, Past Anesthesia/Blood Transfusion Reactions: No Reported Reaction Past Psychological History: No Psychological Hx Reported Additional Psychological History / Comment(s): PT LIVES WITH HIS AND 2 CHILDREN. 1 DOG. 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 NO OUTSDE SERVICES, NO MED EQUIPMENT. Smoking Status: Current every day smoker Past Alcohol Use History: None Reported Additional Past Alcohol Use History / Comment(s): STARTED SMOKING AT AGE 19, SMOKES 1/2 PPD. Past Drug Use History: None Reported - Past Family History Mother Family Medical History: Thyroid Disorder Additional Family Medical History / Comment(s): MOM AGE 50 FROM COMPLICATIONS OF MS Father Family Medical History: Hypertension Medications and Allergies Home Medications Medication Instructions Recorded Confirmed Type clonazePAM [KlonoPIN] 0.5 mg PO DAILY PRN 03/31/19 03/31/19 History Allergies Allergy/AdvReac Type Severity Reaction Status Date / Time diphenhydramine AdvReac Unknown Rapid Verified 03/31/19 13:25 [From Benadryl] Heart Rate Physical Exam Vitals: Vital Signs Temp Pulse Resp BP Pulse Ox 03/31/19 15:51 98 F 64 18 111/82 99 03/31/19 11:15 98 F 88 18 112/72 98 Intake and Output 03/31/19 03/31/19 03/31/19 06:59 14:59 22:59 Intake Total 20 Balance 20 Intake: Amount of Fluid Infused ( 20 ml) Other: Voiding Method Toilet Toilet Weight 68.039 kg General: [non toxic], [no distress], [appears at stated age] Derm: [warm], [dry] Head: [atraumatic], [normocephalic], [symmetric] Eyes: [EOMI], [no lid lag], [anicteric sclera] Mouth: [no lip lesion], [mucus membranes moist] Cardiovascular: [S1S2 reg], [no murmur], [positive posterior tibial pulse bilateral], Lungs: [CTA bilateral], [no rhonchi, no rales] , [no accessory muscle use] Abdominal: [soft], [tenderness to palpation in the right upper and right lower quadrant without rebound tenderness], [no guarding], [no appreciable organomegaly] Ext: [no gross muscle atrophy], [no edema], [no contractures] Neuro: [ CN II-XI grossly intact], [no focal neuro deficits] Psych: [Alert], [oriented], [appropriate affect] Results CBC & Chem 7: 03/31/19 13:30 03/31/19 13:30 Labs: Abnormal Lab Results - Last 24 Hours (Table) 03/31/19 03/31/19 Range/Units 13:30 13:30 BUN 21 H (9-20) mg/dL Glucose 106 H (74-99) mg/dL ALT 15 L (21-72) U/L Urine Blood Moderate H (Negative) Urine RBC 16 H (0-5) /hpf Urine Mucus Rare H (None) /hpf Thrombosis Risk Factor Assmnt - Choose All That Apply Any of the Below Risk Factors Present?: Yes Each Factor Represents 1 point: Age 41-60 years Other Risk Factors: No Other congenital or acquired thrombophilia - If yes, enter type in comment: No Thrombosis Risk Factor Assessment Total Risk Factor Score: 1 Thrombosis Risk Factor Assessment Level: Low Risk Assessment and Plan Assessment: Assessment and Plan Abdominal pain likely related to Crohn flare along with partial bowel obstruction As seen on CT AP. Will keep patient nothing by mouth for now. Pain control with oxycodone and Dilaudid as needed. Start Zofran for nausea or vomiting. Start Solu-Medrol IV. Plans to consult gastroenterology and general surgery for further recommendations. Patient names his decision-maker in the case that he can't make decisions for himself. Patient elects to be full code at this time. DVT prophylaxis: [SCD boots] Discussed with: [Patient] Anticipated discharge: [1-2 days] Anticipated discharge place: [Home] A total of [30] minutes was spent on the care of this complex patient more than 50% of the time was spent in counseling and care coordination.
[2019-03-31] MEDS: oxyCODONE-APAP 10-325MG 1 EACH TAB PO PRN ×2 (18:22→21:25)
[2019-03-31] MEDS: ALPRAZolam 0.5 MG TAB PO PRN ×2 (19:22→22:25)
[2019-03-31] MEDS: NICOTINE 21MG/24HR PATCH TRANSDERM SCH (19:23)
[2019-04-01] MEDS: HYDROmorphone 1 MG/ML 1 ML SYRINGE IVP PRN ×4 (01:11→13:18)
[2019-04-01] MEDS: oxyCODONE-APAP 10-325MG 1 EACH TAB PO PRN ×4 (01:12→14:20)
[2019-04-01] MEDS: methylPREDNISolone SOD SUCCI 125 MG/2 ML VIAL IV SCH (07:14)
[2019-04-01] MEDS: NICOTINE 21MG/24HR PATCH TRANSDERM SCH (07:14)
[2019-04-01] MEDS: ALPRAZolam 0.5 MG TAB PO PRN (08:02)
[2019-04-01] MEDS ORDERED: PANTOPRAZOLE 40 MG/10 ML VIAL IVP SCH (09:00)
[2019-04-01] MEDS: SODIUM CHLORIDE 0.9% 1,000 ML IV SCH (09:26)
--- NOTE | 2019-04-01 11:38 | P.CONS ---
History of Present Illness - Reason for Consult Consult date: 04/01/19 History of Crohn's Requesting physician: Ben Cadena - Chief Complaint Abdominal pain - History of Present Illness 39-year-old male with a history of Crohn's disease diagnosed 15 years ago admitted with acute abdominal pain nausea and few episodes of nonbloody diarrh ea. White count 9.2. Hemoglobin 14.2. BUN [address] abdomen terminal ileitis with moderate wall thickening inflammation possible active Crohn's disease. Possible partial obstruction with prominent fluid- filled small bowel loops throughout dilated up to 3.3 cm. Fingerlike projection extending to the right lower quadrant early fistula formation could not be excluded. Presently he is ambulating in the hallways requesting discharge. Reports minimal abdominal discomfort. Denies hematemesis hematochezia or melena. No fevers. Last GI follow-up 4-5 months ago. No recent steroids or antibiotics. Last colonoscopy 5-6 years ago he reports active disease again no maintenance medications. Review of Systems Constitutional: Denies fever, chills, sweats, weight gain, or loss. HEENT: Negative for migraines, blurred vision or loss, earaches, drainage, tinnitus, oral mucosal lesions, dysphagia, or odynophagia. Cardiac: Negative for chest pain, arrhythmias, or palpitation. Respiratory: Negative for shortness of breath, hemoptysis, cough, or sputum production. Gastrointestinal: See HPI for pertinent findings. Genitourinary: Negative for hematuria, urgency, frequency, polyuria, dysuria, or penile discharge. Musculoskeletal: Negative for muscle aches, swelling, arthritis, and arthralgias. Neurologic: Negative for stroke or TIA. Endocrine: Negative for thyroid problems. Skin: Negative for rash or itching. Psychiatric: Negative history for depression and anxiety Past Medical History Past Medical History: GERD/Reflux Additional Past Medical History / Comment(s): crohns, KIDNEY STONES, History of Any Multi-Drug Resistant Organisms: None Reported Past Surgical History: Adenoidectomy, Hernia Repair Additional Past Surgical History / Comment(s): RT INGUIAL HERNIA REPAIR. SX FOR DEVIATED SEPTUM, Past Anesthesia/Blood Transfusion Reactions: No Reported Reaction Past Psychological History: No Psychological Hx Reported Additional Psychological History / Comment(s): PT LIVES WITH HIS AND 2 CHILDREN. 1 DOG. 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 NO OUTSDE SERVICES, NO MED EQUIPMENT. Smoking Status: Current every day smoker Past Alcohol Use History: None Reported Additional Past Alcohol Use History / Comment(s): STARTED SMOKING AT AGE 19, SMOKES 1/2 PPD. Past Drug Use History: None Reported - Past Family History Mother Family Medical History: Thyroid Disorder Additional Family Medical History / Comment(s): MOM AGE 50 FROM COMPLICATIONS OF MS Father Family Medical History: Hypertension Medications and Allergies Home Medications Medication Instructions Recorded Confirmed Type clonazePAM [KlonoPIN] 0.5 mg PO DAILY PRN 03/31/19 03/31/19 History predniSONE 0 mg PO DIRECTED #123 tab 04/01/19 Rx Allergies Allergy/AdvReac Type Severity Reaction Status Date / Time diphenhydramine AdvReac Unknown Rapid Verified 03/31/19 13:25 [From Benadryl] Heart Rate Physical Exam Vitals: Vital Signs Temp Pulse Pulse Resp BP BP Pulse Ox 04/01/19 04:05 97.6 F 65 18 104/56 98 03/31/19 23:00 97.7 F 76 20 118/69 95 03/31/19 15:51 98 F 64 18 111/82 99 03/31/19 11:15 98 F 88 18 112/72 98 Intake and Output 03/31/19 04/01/19 04/01/19 22:59 06:59 14:59 Intake Total 20 0 Balance 20 0 Intake: Amount of Fluid Infused ( 20 ml) Oral 0 0 Other: Voiding Method Toilet # Voids 1 2 General appearance: The patient is alert, oriented, in no acute distress. HET: Head is normocephalic and atraumatic. Pupils are equal and reactive. Oropharynx is clear without lesions. Neck: Supple without lymphadenopathy. Trachea midline. Heart: S1 S2. Regular rate and rhythm. Lungs: No crackles or wheezes are heard. Abdomen: Soft, very minimal tenderness to the right lower quadrant, nondistended with bowel sounds. No peritoneal signs. No palpable organomegaly or masses. Extremities: Normal skin color and turgor. No cyanosis, rash, ulceration, clubbing, or edema. Radial and pedal pulses are 2/4 bilaterally. Neurological: No focal deficits. Strength and sensation are grossly intact. Results CBC & Chem 7: 03/31/19 13:30 03/31/19 13:30 Labs: Abnormal Lab Results - Last 24 Hours (Table) 03/31/19 03/31/19 Range/Units 13:30 13:30 BUN 21 H (9-20) mg/dL Glucose 106 H (74-99) mg/dL ALT 15 L (21-72) U/L Urine Blood Moderate H (Negative) Urine RBC 16 H (0-5) /hpf Urine Mucus Rare H (None) /hpf CT scan - abdomen: report reviewed (Dr. Narvaez) Assessment and Plan (1) Abdominal pain Narrative/Plan: 39-year-old male with a long-standing history of Crohn's disease presently not on maintenance therapy present with acute abdominal pain nausea a few isolated episodes of nonbloody diarrhea without fever or leukocytosis. Symptoms consistent with acute exacerbation of Crohn's disease an underlying fistula formation per CT of the abdomen could not be excluded. Presently ambulating in the hallway requesting discharge with minimal abdominal discomfort receiving intravenous steroids. Seen by general surgery no surgical intervention planned at this time. Current Visit: Yes Status: Acute Code(s): R10.9 - UNSPECIFIED ABDOMINAL PAIN SNOMED Code(s): 36182556 (2) Crohns disease Current Visit: Yes Status: Acute Code(s): K50.90 - CROHN'S DISEASE, UNSPECIFIED, WITHOUT COMPLICATIONS SNOMED Code(s): 03642781 Plan: 1. Patient is requesting discharge and narcotics even though his pain is improved and he is ambulating in the hallway. From a GI standpoint at [facility] for discharge. We'll provide a prednisone taper 40 mg daily taper down by 5 mg every 7 days. Return to office in 2-3 weeks for reevaluation and discussion of outpatient colonoscopy and maintenance medications for his Crohn's. Patient is requesting sleeping as well as pain medication we'll defer to the attending service. Patient was advised to return to the emergency room with fever, rectal bleeding or worsening abdominal pain. Patient verbalized understanding. Thank you for this kind referral and the opportunity to participate in the care of your patient. This consultation was discussed with Dr. Narvaez. The impression and plan of care have been directed as dictated.
[2019-04-01 12:57] VITALS: BP 113/67; PULSE 97; RESP 20; TEMP 97.9
--- NOTE | 2019-04-01 13:33 | P.GSCN ---
History of Present Illness Consult date: 04/01/19 Reason for Consult: crohns Requesting physician: Ben Cadena History of present illness: CHIEF COMPLAINT: Abdominal pain HISTORY OF PRESENT ILLNESS: 39-year-old male who presents to emergency room with a chief complaint of abdominal pain. Patient reports he has a history of Crohn's disease and was first diagnosed recently 10 years ago. He denies being on maintenance therapy secondary to not having insurance. He states he recently got his insurance back and tried to make appointment with his GI physician but could not get an appointment until May. He reports severe abdominal pain yesterday but states his pain has improved today. He is passing flatus and having loose stools. Denies nausea or vomiting. Patient is currently receiving Xanax, Dilaudid, and Percocet while in the hospital per internal medicine. Patient is requesting to see a pain specialist to obtain narcotics at discharge. PAST MEDICAL HISTORY: See list. PAST SURGICAL HISTORY: See list. MEDICATIONS: See list. ALLERGIES: See list. SOCIAL HISTORY: No illicit drug use. REVIEW OF SYSTEMS: CONSTITUTIONAL: Denies fever or chills. HEENT: Denies blurred vision, vision changes, or eye pain. Denies hemoptysis ENDOCRINE: Denies heat or cold intolerance. CARDIOVASCULAR: Denies chest pain or pressure. RESPIRATORY: No shortness of breath. GASTROINTESTINAL: See HPI for pertinent findings. NEURO: Denies history of seizures. PSYCH: No depression or suicidal ideation HEMATOLOGIC: Denies bleeding disorders. LYMPHATIC: The patient denies any lumps and bumps around the neck. GENITOURINARY: Denies any blood in urine or increased urinary frequency. MUSCULOSKELETAL: Denies myalgias. Denies joint swelling. Denies decreased range of motion beyond patients baseline. SKIN: Denies pruitis. Denies rash. PHYSICAL EXAM: VITAL SIGNS: Reviewed GENERAL: Well-developed in no acute distress. HEENT: No sclera icterus. Extraocular movements grossly intact. Moist buccal mucosa. Head is atraumatic, normocephalic. Hears conversational speech. No nasal drainage. NECK: Supple without lymphadenopathy. CHEST: Non-labored respirations and equal bilateral excursions. CARDIOVASCULAR: Regular rate with regular rhythm. Palpable 2+ radial pulses. ABDOMEN: Soft. Nondistended. Positive bowel sounds. Mild tenderness to palpation of right lower quadrant and left upper quadrant. MUSCULOSKELETAL: No clubbing, cyanosis or edema. NEUROLOGIC: No focal or lateralizing signs. Cranial nerves II through XII grossly intact. PSYCH: Appropriate affect. Alert and oriented to person, place and time. SKIN: Well perfused. Good skin turgor. LABORATORY DATA: Laboratory data upon admission reveals white count 9.2. Hemoglobin 14.2. Potassium 4.4. BUN 21. Creatinine 0.74. Lactic acid 1.7. Magnesium 2.0. Total bilirubin 0.3. AST 20. ALT 15. Lipase 132. IMAGING: CT abdomen and pelvis: Terminal ileitis with moderate wall thickening and inflammation. Correlate for possible active Crohn's disease. Given prominent fluid-filled small bowel loops throughout and somewhat dilated up to 3.3 cm there is a relative partial obstruction secondary to distal formation. Unusual fingerlike projection extending to the right lower quadrant anterior abdominal wall from the inflamed segment of ileum. ASSESSMENT: 1. Abdominal pain 2. Acute exacerbation of Crohn's disease PLAN: 1. Begin clear liquid diet 2. Consult Dr. Olson for pain management. Patient requesting to get into pain contract with specialist to obtain narcotics. No narcotics will be prescribed from surgical services. 3. GI services following. IV steroids per GI. Maintenance medications for Crohns per GI. 4. No surgical intervention recommended at this time Nurse practitioner note has been reviewed by physician. Signing provider agrees with the documented findings, assessment, and plan of care. Past Medical History Past Medical History: GERD/Reflux Additional Past Medical History / Comment(s): crohns, KIDNEY STONES, History of Any Multi-Drug Resistant Organisms: None Reported Past Surgical History: Adenoidectomy, Hernia Repair Additional Past Surgical History / Comment(s): RT INGUIAL HERNIA REPAIR. SX FOR DEVIATED SEPTUM, Past Anesthesia/Blood Transfusion Reactions: No Reported Reaction Past Psychological History: No Psychological Hx Reported Additional Psychological History / Comment(s): PT LIVES WITH HIS AND 2 CHILDREN. 1 DOG. 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 NO OUTSDE SERVICES, NO MED EQUIPMENT. Smoking Status: Current every day smoker Past Alcohol Use History: None Reported Additional Past Alcohol Use History / Comment(s): STARTED SMOKING AT AGE 19, SMOKES 1/2 PPD. Past Drug Use History: None Reported - Past Family History Mother Family Medical History: Thyroid Disorder Additional Family Medical History / Comment(s): MOM AGE 50 FROM COMPLICATIONS OF MS Father Family Medical History: Hypertension Medications and Allergies Home Medications Medication Instructions Recorded Confirmed Type clonazePAM [KlonoPIN] 0.5 mg PO DAILY PRN 03/31/19 03/31/19 History predniSONE 0 mg PO DIRECTED #123 tab 04/01/19 Rx Allergies Allergy/AdvReac Type Severity Reaction Status Date / Time diphenhydramine AdvReac Unknown Rapid Verified 03/31/19 13:25 [From Benadryl] Heart Rate Surgical - Exam Vital Signs Temp Pulse Resp BP Pulse Ox 98 F 88 18 112/72 98 03/31/19 11:15 03/31/19 11:15 03/31/19 11:15 03/31/19 11:15 03/31/19 11:15 Results - Labs 03/31/19 13:30 03/31/19 13:30 Abnormal Lab Results - Last 24 Hours (Table) 03/31/19 03/31/19 Range/Units 13:30 13:30 BUN 21 H (9-20) mg/dL Glucose 106 H (74-99) mg/dL ALT 15 L (21-72) U/L Urine Blood Moderate H (Negative) Urine RBC 16 H (0-5) /hpf Urine Mucus Rare H (None) /hpf Diabetes panel 03/31/19 Range/Units 13:30 Sodium 142 (137-145) mmol/L Potassium 4.4 (3.5-5.1) mmol/L Chloride 107 (98-107) mmol/L Carbon Dioxide 22 (22-30) mmol/L BUN 21 H (9-20) mg/dL Creatinine 0.74 (0.66-1.25) mg/dL Glucose 106 H (74-99) mg/dL Calcium 9.3 (8.4-10.2) mg/dL AST 20 (17-59) U/L ALT 15 L (21-72) U/L Alkaline Phosphatase 78 (38-126) U/L Total Protein 7.4 (6.3-8.2) g/dL Albumin 4.2 (3.5-5.0) g/dL Calcium panel 03/31/19 Range/Units 13:30 Calcium 9.3 (8.4-10.2) mg/dL Albumin 4.2 (3.5-5.0) g/dL Pituitary panel 03/31/19 Range/Units 13:30 Sodium 142 (137-145) mmol/L Potassium 4.4 (3.5-5.1) mmol/L Chloride 107 (98-107) mmol/L Carbon Dioxide 22 (22-30) mmol/L BUN 21 H (9-20) mg/dL Creatinine 0.74 (0.66-1.25) mg/dL Glucose 106 H (74-99) mg/dL Calcium 9.3 (8.4-10.2) mg/dL Adrenal panel 03/31/19 Range/Units 13:30 Sodium 142 (137-145) mmol/L Potassium 4.4 (3.5-5.1) mmol/L Chloride 107 (98-107) mmol/L Carbon Dioxide 22 (22-30) mmol/L BUN 21 H (9-20) mg/dL Creatinine 0.74 (0.66-1.25) mg/dL Glucose 106 H (74-99) mg/dL Calcium 9.3 (8.4-10.2) mg/dL Total Bilirubin 0.3 (0.2-1.3) mg/dL AST 20 (17-59) U/L ALT 15 L (21-72) U/L Alkaline Phosphatase 78 (38-126) U/L Total Protein 7.4 (6.3-8.2) g/dL Albumin 4.2 (3.5-5.0) g/dL
--- NOTE | 2019-04-01 14:47 | P.DS ---
Providers Date of admission: 03/31/19 15:10 Expected date of discharge: 04/01/19 Attending physician: Ben Cadena MD Consults: 03/31/19 14:58 Consult Physician Routine Consulting Provider: Marguerite Narvaez Consult Reason/Comments: crohns flare Do you want consulting provider notified?: Yes 03/31/19 18:07 Consult Physician Routine Consulting Provider: Jason López Consult Reason/Comments: Crohns, ileus Do you want consulting provider notified?: Yes 04/01/19 11:50 Consult Physician Routine Consulting Provider: Lester Olson Consult Reason/Comments: Pain management evaluation Do you want consulting provider notified?: Yes Primary care physician: Stated None Hospital Course: 39-year-old male with past medical history of Crohn's disease over the past 10 years presents the ED for abdominal pain. Patient reports abdominal pain is localized to the right lower quadrant that started yesterday. Pain radiates to the epigastric area. Patient reports the pain is 10 out of 10 in severity, described as bowel twisting in nature. Pain is aggravated with movement and there are no alleviating factors. Patient reports his last bowel movement was yesterday, diarrhea, described as watery stool. Patient denies any hematochezia or melena. He does report that he is passing gas. Patient denies any headaches, lower extremity edema, fever or chills, cough, chest pain, shortness of breath, changes in urination or appetite. Patient does report one episode of nausea and nonbilious nonbloody vomiting yesterday. Patient states that he has been seeing Dr. Buenrostro for his Crohn's disease. States that he gets flareups every 2 months but the last one that required hospitalization was 1-1/2 years ago. Patient also reports that he was told by Dr. Buenrostro that he would require surgery in the immediate future. In the ED, vital signs are stable. CBC was unremarkable. CMP showed a BUN of 21, glucose of 106. Lipase was negative. Urinalysis showed moderate blood. CT of the abdomen and pelvis showed terminal ileitis, relative partial obstruction secondary to distal inflammation, fingerlike projections extending to the right lower quadrant concerning for early fistula formation. Patient is admitted for Crohn's flare, gastroenterology was consulted. Patient was evaluated by gastroenterology and recommended discharging patient home with prednisone taper. Gastroenterology also recommended that the patient follow-up in 2-3 weeks for reevaluation and discussion of outpatient colonoscopy and maintenance of Crohn's disease. General surgery evaluated the patient recommended no surgical intervention at this time. Patient was seen and examined. No acute events overnight. Patient reports pain well-controlled with current pain medication. He denies any chest pain, shortness of breath or palpitations. No nausea or vomiting. No fever or chills. General: [non toxic], [no distress], [appears at stated age] Derm: [warm], [dry] Head: [atraumatic], [normocephalic], [symmetric] Eyes: [EOMI], [no lid lag], [anicteric sclera] Lungs: [CTA bilateral], [no rhonchi, no rales] , [no accessory muscle use] Abdominal: [soft], [tenderness to palpation in the right upper and right lower quadrant without rebound tenderness, improved], [no guarding], [no appreciable organomegaly] Psych: [Alert], [oriented], [appropriate affect] Assessment and Plan Abdominal pain likely related to Crohn flare along with partial bowel obstruction As seen on CT AP. Start clear liquid diet and advance. Pain control with oxycodone and Dilaudid as needed. Start Zofran for nausea or vomiting. Continue Solu-Medrol IV and transitioned to prednisone on discharge. General surgery and gastric neurology is clear the patient for discharge with prednisone taper. Pertinent Studies: CT abdomen pelvis Patient Condition at Discharge: Stable Plan - Discharge Summary New Discharge Prescriptions: New predniSONE 0 mg PO DIRECTED #123 tab oxyCODONE-APAP 10-325MG [Percocet 10-325 mg] 1 each PO Q4H PRN #9 tab PRN Reason: Pain Continue clonazePAM [KlonoPIN] 0.5 mg PO DAILY PRN #3 tab PRN Reason: Anxiety Discharge Medication List clonazePAM [KlonoPIN] 0.5 mg PO DAILY PRN #3 tab 04/01/19 [Rx] oxyCODONE-APAP 10-325MG [Percocet 10-325 mg] 1 each PO Q4H PRN #9 tab 04/01/19 [Rx] predniSONE 0 mg PO DIRECTED #123 tab 04/01/19 [Rx] Follow up Appointment(s)/Referral(s): Marguerite Narvaez MD [STAFF PHYSICIAN] - 04/16/19 5:00 pm None,Stated [Primary Care Provider] - 1-2 days Activity/Diet/Wound Care/Special Instructions: Diet: Regular Follow-up PCP within 1-2 days of discharge. Follow-up with GI within 3 weeks of discharge. Discharge Disposition: HOME SELF-CARE
[2019-04-01] MEDS ORDERED: methylPREDNISolone SOD SUCCI 40 MG/ML 1 ML VIAL IV SCH (16:00)
== END 2019-04-01 15:05 | disposition home or self-care (01) | DRG 387 ==
LOC: EC 10:52 → 4MS4W 15:10
PROVIDERS: ADMIT Family Medicine; ATTEND Family Medicine
DX: K50.012 Crohn's disease of small intestine with intestinal obstruction (principal); F17.200 Nicotine dependence, unspecified, uncomplicated; K21.9 Gastro-esophageal reflux disease without esophagitis; Z87.442 Personal history of urinary calculi; Z88.8 Allergy status to other drugs, medicaments and biological substances; Z90.49 Acquired absence of other specified parts of digestive tract; Z98.890 Other specified postprocedural states; Z82.49 Family history of ischemic heart disease and other diseases of the circulatory system; Z83.49 Family history of other endocrine, nutritional and metabolic diseases
CPT/HCPCS: 36415; 74177; 80053; 81001; 83605; 83690; 83735; 85025; 85610; 96361; 96374; 96376; 99285

== ENCOUNTER → 2019-06-17 | Outpatient (CLI) | payer OTHER ==
[2019-06-17 15:48] LABS: Basophils # (A) 0.1 k/uL (0-0.2); Basophils % (A) 1 %; Eosinophils # (A) 0.3 k/uL (0-0.7); Eosinophils % (A) 4 %; HCT 43.1 % (39.0-53.0); HGB 14.5 gm/dL (13.0-17.5); Lymphocytes # (A) 2.5 k/uL (1.0-4.8); Lymphocytes % (A) 28 %; MCH 32.1 pg (25.0-35.0); MCHC 33.7 g/dL (31.0-37.0); MCV 95.3 fL (80.0-100.0); Mean Platelet Volume 6.2; Monocytes # (A) 0.3 k/uL (0-1.0); Monocytes % (A) 3 %; Neutrophils # (A) 5.5 k/uL (1.3-7.7); Neutrophils % (A) 63 %; Platelet Count 303 k/uL (150-450); RBC 4.52 m/uL (4.30-5.90); RDW 12.4 % (11.5-15.5); WBC 8.9 k/uL (3.8-10.6)
[2019-06-18 07:52] LABS: African American GFR (CKD) 107.9 (60.0-200.0); Albumin 4.4 g/dL (3.80-4.90); Anion Gap 13.6 mmol/L (4.00-12.00); Calcium 9.4 mg/dL (8.7-10.3); Carbon Dioxide 26.4 mmol/L (21.6-31.8); Globulin 2.2 g/dL (1.6-3.3); Hepatitis B Surface Antigen Non-Reactive (Non-Reactive); Hepatitis C IgG Antibody Non-Reactive (Non-Reactive); Potassium 4.9 mmol/L (3.5-5.5); Total Bilirubin 0.3 mg/dL (0.2-1.2); Total Protein 6.6 g/dL (6.2-8.2)
== END | disposition home or self-care (01) ==
LOC: LABWHC1 14:35
PROVIDERS: ATTEND Internal Medicine Gastroenterology
DX: K50.90 Crohn's disease, unspecified, without complications (principal)
CPT/HCPCS: 36415; 80053; 85025; 86480; 86704; 86803; 87340

== ENCOUNTER 2019-09-15 22:33 | Emergency (ER) | payer OTHER ==
[2019-09-15 22:43] VITALS: BP 121/80; PULSE 63; RESP 18; TEMP 97.9
[2019-09-15] MEDS ORDERED: GABAPENTIN 300 MG CAP PO STA (23:11)
[2019-09-15] MEDS ORDERED: valACYclovir 500 MG TAB PO STA (23:11)
[2019-09-15] MEDS ORDERED: ACET/COD 300 MG/30 MG STARTER PACK 6 TAB BTL PO STA (23:11)
--- NOTE | 2019-09-15 23:20 | ED ---
General Adult HPI - General Chief complaint: Skin/Abscess/Foreign Body Stated complaint: shingles Time Seen by Provider: 09/15/19 22:53 Source: patient, RN notes reviewed, old records reviewed Mode of arrival: ambulatory Limitations: no limitations - History of Present Illness Initial comments: 39 year old male wtih CC of rash over right chest wall. Patient reports that he has painful rash for 2 days. Patient states that he has no other areas of rash, and his skin is sensitive. Patient reports history of chicken pox as a child. He has hx of Chrons, but is not on immunosupression meds at this time. - Related Data Previous Rx's Medication Instructions Recorded clonazePAM [KlonoPIN] 0.5 mg PO DAILY PRN #3 tab 04/01/19 oxyCODONE-APAP 10-325MG [Percocet 1 each PO Q4H PRN #9 tab 04/01/19 10-325 mg] predniSONE 0 mg PO DIRECTED #123 tab 04/01/19 Gabapentin [Neurontin] 300 mg PO DIRECTED #18 cap 09/15/19 Lidocaine 5% Patch [Lidoderm 5% 1 patch TOPICAL DAILY #15 patch 09/15/19 Patch] valACYclovir HCL [Valtrex] 1,000 mg PO Q8HR #21 tab 09/15/19 Allergies Allergy/AdvReac Type Severity Reaction Status Date / Time diphenhydramine AdvReac Unknown Rapid Verified 09/15/19 22:40 [From Benadryl] Heart Rate Review of Systems ROS Statement: Those systems with pertinent positive or pertinent negative responses have been documented in the HPI. ROS Other: All systems not noted in ROS Statement are negative. Past Medical History Past Medical History: GERD/Reflux Additional Past Medical History / Comment(s): crohns, KIDNEY STONES, History of Any Multi-Drug Resistant Organisms: None Reported Past Surgical History: Adenoidectomy, Hernia Repair Additional Past Surgical History / Comment(s): RT INGUIAL HERNIA REPAIR. SX FOR DEVIATED SEPTUM, Past Anesthesia/Blood Transfusion Reactions: No Reported Reaction Past Psychological History: No Psychological Hx Reported Smoking Status: Current every day smoker Past Alcohol Use History: None Reported Past Drug Use History: None Reported - Past Family History Mother Family Medical History: Thyroid Disorder Additional Family Medical History / Comment(s): MOM AGE 50 FROM COMPLICATIONS OF MS Father Family Medical History: Hypertension General Exam - General Exam Comments Initial Comments: 39 year old male, no distress. Limitations: no limitations General appearance: alert, in no apparent distress Head exam: Present: atraumatic, normocephalic, normal inspection Eye exam: Present: normal appearance, PERRL, EOMI. Absent: scleral icterus, conjunctival injection, periorbital swelling ENT exam: Present: normal exam, mucous membranes moist Neck exam: Present: normal inspection. Absent: tenderness, meningismus, lymphadenopathy Respiratory exam: Present: normal lung sounds bilaterally, other (Shingles rash over t4 dermatome. Erythematous papules in crop like lesions. ). Absent: respiratory distress, wheezes, rales, rhonchi, stridor Cardiovascular Exam: Present: regular rate, normal rhythm, normal heart sounds. Absent: systolic murmur, diastolic murmur, rubs, gallop, clicks GI/Abdominal exam: Present: soft, normal bowel sounds. Absent: distended, tenderness, guarding, rebound, rigid Extremities exam: Present: normal inspection, full ROM, normal capillary refill. Absent: tenderness, pedal edema, joint swelling, calf tenderness Back exam: Present: normal inspection Neurological exam: Present: alert, oriented X3, CN II-XII intact Psychiatric exam: Present: normal affect, normal mood Course Vital Signs 09/15/19 22:40 Temperature 97.9 F Pulse Rate 63 Respiratory 18 Rate Blood Pressure 121/80 O2 Sat by Pulse 100 Oximetry Medical Decision Making - Medical Decision Making 39 year old male with painful rash on R chest wall. Patient appears to ahve shingles over T4 dermatome. Discussed return parameters and medication for pain and antiviral medications. Advised contact precaution. Disposition Clinical Impression: Shingles Disposition: HOME SELF-CARE Condition: Good Instructions (If sedation given, give patient instructions): Shingles (ED) Additional Instructions: Patient advised to take the medications as prescribed. Patient will see lidocaine was over top. Return to the emergency department if any alarming signs or symptoms occur. Prescriptions: Lidocaine 5% Patch [Lidoderm 5% Patch] 1 patch TOPICAL DAILY #15 patch Gabapentin [Neurontin] 300 mg PO DIRECTED #18 cap valACYclovir HCL [Valtrex] 1,000 mg PO Q8HR #21 tab Is patient prescribed a controlled substance at d/c from ED?: No Referrals: None,Stated [Primary Care Provider] - 1-2 days Time of Disposition: 23:15
== END 2019-09-15 23:44 | disposition home or self-care (01) ==
LOC: EC 22:33
DX: B02.9 Zoster without complications (principal); F17.200 Nicotine dependence, unspecified, uncomplicated; Z88.8 Allergy status to other drugs, medicaments and biological substances
CPT/HCPCS: 99283

== ENCOUNTER 2019-10-11 19:13 | Emergency (ER) | payer OTHER ==
[2019-10-11] MEDS ORDERED: SODIUM CHLORIDE 0.9% 1,000 ML IV STA (20:03)
[2019-10-11] MEDS ORDERED: HYDROmorphone 1 MG/ML 1 ML SYRINGE IVP STA ×2 (20:03→22:22)
[2019-10-11] MEDS ORDERED: ONDANSETRON 4 MG/2 ML VIAL IVP STA (20:03)
[2019-10-11 21:08] VITALS: RESP 18
[2019-10-11 21:25] LABS: Basophils # (A) 0.1 k/uL (0-0.2); Basophils % (A) 1 %; Eosinophils # (A) 0.3 k/uL (0-0.7); Eosinophils % (A) 3 %; HCT 40.7 % (39.0-53.0); HGB 13.7 gm/dL (13.0-17.5); Lymphocytes % (A) 25 %; MCH 30.9 pg (25.0-35.0); MCHC 33.7 g/dL (31.0-37.0); MCV 91.5 fL (80.0-100.0); Mean Platelet Volume 7.6; Monocytes # (A) 0.3 k/uL (0-1.0); Monocytes % (A) 4 %; Neutrophils # (A) 5.1 k/uL (1.3-7.7); Neutrophils % (A) 64 %; Platelet Count 301 k/uL (150-450); RBC 4.45 m/uL (4.30-5.90); RDW 12.1 % (11.5-15.5)
[2019-10-11 21:27] LABS: Albumin 3.6 g/dL (3.5-5.0); Calcium 8.7 mg/dL (8.4-10.2); Potassium 4.2 mmol/L (3.5-5.1); Total Bilirubin 0.3 mg/dL (0.2-1.3); Total Protein 6.6 g/dL (6.3-8.2)
--- NOTE | 2019-10-11 21:38 | CT ---
EXAMINATION TYPE: CT abdomen pelvis w con DATE OF EXAM: 10/11/2019 COMPARISON: 03/31/2019 HISTORY: epigastric pain CT DLP: 661.4 mGycm Automated exposure control for dose reduction was used. CONTRAST: Performed with IV Contrast, patient injected with 100 mL of Isovue 300. Multiple axial sections were obtained from the diaphragm to the floor the pelvis with intravenous con trast Isovue 100 mL. FINDINGS: Lung bases are clear. There is no pleural effusion. Heart size is normal. There is no pericardial eff usion. Liver spleen stomach pancreas gallbladder appear normal. Bile ducts are not dilated. There is no adrenal mass. Kidneys show satisfactory contrast opacification. There is no hydronephrosi s. Ureters are not dilated. There is no inguinal hernia. There is no mesenteric edema. There is some wall thickening of the distal ileum. There is long segmen t of wall thickening extending to the ileocecal valve. There is no free air. There is no ascites. Nelly endix is not seen. There is no sign of thickened appendix. Lumbar vertebra have normal alignment. The re is L1 15% anterior wedging. This appears old. IMPRESSION: Long segment of distal ileum wall thickening consistent with inflammatory bowel disease unchanged. No abscess. No evidence of a bowel obstruction.
--- NOTE | 2019-10-11 21:44 | ED ---
Abdominal Pain HPI - General Chief Complaint: Abdominal Pain Stated Complaint: Abd pain Time Seen by Provider: 10/11/19 19:30 Source: patient Mode of arrival: ambulatory Limitations: no limitations - History of Present Illness Initial Comments: The patient is a 39-year-old male has a history of Crohn's disease presents emergency room for reported abdominal pain and nausea. Patient has a history of Crohn's disease. States that he was recently prescribed humara. It is currently pharmacy has not picked it up. He states the past 2 days if have nausea with decreased appetite. He has not had any vomiting. Does admit to left upper quadrant abdominal pain. States he last on steroids last year also Dr. Narvaez. He denies ripping or tearing sensation to his back. Denies any melanotic or hematochezia. Denies any changes in his urination. Does not take any medications at home currently. Denies any fevers or chills. There are no alleviating, precipitating or modifying factors - Related Data Previous Rx's Medication Instructions Recorded Amoxic-Pot Clav 875-125Mg 1 tab PO Q12HR #20 tablet 10/16/19 [Augmentin 875-125] Allergies Allergy/AdvReac Type Severity Reaction Status Date / Time diphenhydramine AdvReac Unknown Rapid Verified 10/15/19 18:36 [From Benadryl] Heart Rate Review of Systems ROS Statement: Those systems with pertinent positive or pertinent negative responses have been documented in the HPI. ROS Other: All systems not noted in ROS Statement are negative. Past Medical History Past Medical History: GERD/Reflux Additional Past Medical History / Comment(s): crohns, KIDNEY STONES, History of Any Multi-Drug Resistant Organisms: None Reported Past Surgical History: Adenoidectomy, Hernia Repair Additional Past Surgical History / Comment(s): RT INGUIAL HERNIA REPAIR. SX FOR DEVIATED SEPTUM, Past Anesthesia/Blood Transfusion Reactions: No Reported Reaction Past Psychological History: No Psychological Hx Reported Smoking Status: Current every day smoker Past Alcohol Use History: None Reported Past Drug Use History: None Reported - Past Family History Mother Family Medical History: Thyroid Disorder Additional Family Medical History / Comment(s): MOM AGE 50 FROM COMPLICATIONS OF MS Father Family Medical History: Hypertension General Exam Limitations: no limitations General appearance: alert, in no apparent distress Head exam: Present: atraumatic, normocephalic, normal inspection Eye exam: Present: normal appearance, PERRL, EOMI. Absent: scleral icterus, co njunctival injection, periorbital swelling ENT exam: Present: normal exam, mucous membranes moist Neck exam: Present: normal inspection. Absent: tenderness, meningismus, lymphadenopathy Respiratory exam: Present: normal lung sounds bilaterally. Absent: respiratory distress, wheezes, rales, rhonchi, stridor Cardiovascular Exam: Present: regular rate, normal rhythm, normal heart sounds. Absent: systolic murmur, diastolic murmur, rubs, gallop, clicks GI/Abdominal exam: Present: soft, tenderness (left upper quadrant. No peritoneal signs), normal bowel sounds. Absent: distended, guarding, rebound, rigid Extremities exam: Present: normal inspection, full ROM, normal capillary refill. Absent: tenderness, pedal edema, joint swelling, calf tenderness Back exam: Present: normal inspection Neurological exam: Present: alert, oriented X3, CN II-XII intact Psychiatric exam: Present: normal affect, normal mood Skin exam: Present: warm, dry, intact, normal color. Absent: rash Course Vital Signs 10/11/19 10/11/19 10/11/19 19:30 21:00 23:14 Temperature 97.8 F 97.9 F Pulse Rate 82 66 68 Respiratory 16 18 18 Rate Blood Pressure 122/81 127/88 122/79 O2 Sat by Pulse 100 98 99 Oximetry Medical Decision Making - Medical Decision Making Upon arrival the patient was placed into room 20. A thorough history and physical exam was performed. IV was established. The patient was given pain medications and nausea medications. Laboratory studies were conducted. The CMP are essentially unremarkable. Urinalysis is negative. CT demonstrates a segment of bowel wall thickening along the distal ileum which is consistent with inflammatory bowel disease and is similar to previous. The patient is reevaluated and has had improvement in his symptoms. I did discuss the case with Dr. Narvaez. He'll be discharged home at this time with prescription for prednisone and Ultram. He is to follow-up with Dr. Narvaez within 2 weeks. Return to the emergency for for any worsening symptoms. Patient was discharged in stable condition - Lab Data Result diagrams: 10/11/19 20:31 10/11/19 20:31 Lab Results 10/11/19 10/11/19 10/11/19 Range/Units 20:31 20:31 20:31 WBC 8.0 (3.8-10.6) k/uL RBC 4.45 (4.30-5.90) m/uL Hgb 13.7 (13.0-17.5) gm/dL Hct 40.7 (39.0-53.0) % MCV 91.5 (80.0-100.0) fL MCH 30.9 (25.0-35.0) pg MCHC 33.7 (31.0-37.0) g/dL RDW 12.1 (11.5-15.5) % Plt Count 301 (150-450) k/uL Neutrophils % 64 % Lymphocytes % 25 % Monocytes % 4 % Eosinophils % 3 % Basophils % 1 % Neutrophils # 5.1 (1.3-7.7) k/uL Lymphocytes # 2.0 (1.0-4.8) k/uL Monocytes # 0.3 (0-1.0) k/uL Eosinophils # 0.3 (0-0.7) k/uL Basophils # 0.1 (0-0.2) k/uL Sodium 138 (137-145) mmol/L Potassium 4.2 (3.5-5.1) mmol/L Chloride 106 (98-107) mmol/L Carbon Dioxide 26 (22-30) mmol/L Anion Gap 6 mmol/L BUN 16 (9-20) mg/dL Creatinine 1.28 H (0.66-1.25) mg/dL Est GFR (CKD-EPI)AfAm 80 (>60 ml/min/1.73 sqM) Est GFR (CKD-EPI)NonAf 69 (>60 ml/min/1.73 sqM) Glucose 85 (74-99) mg/dL Plasma Lactic Acid Narendra 1.1 (0.7-2.0) mmol/L Calcium 8.7 (8.4-10.2) mg/dL Total Bilirubin 0.3 (0.2-1.3) mg/dL AST 20 (17-59) U/L ALT 14 (4-49) U/L Alkaline Phosphatase 80 (38-126) U/L Total Protein 6.6 (6.3-8.2) g/dL Albumin 3.6 (3.5-5.0) g/dL Lipase 139 (23-300) U/L Urine Color Urine Appearance (Clear) Urine pH (5.0-8.0) Ur Specific [place] (1.001-1.035) Urine Protein (Negative) Urine Glucose (UA) (Negative) Urine Ketones (Negative) Urine Blood (Negative) Urine Nitrite (Negative) Urine Bilirubin (Negative) Urine Urobilinogen (<2.0) mg/dL Ur Leukocyte Esterase (Negative) 10/11/19 Range/Units 21:08 WBC (3.8-10.6) k/uL RBC (4.30-5.90) m/uL Hgb (13.0-17.5) gm/dL Hct (39.0-53.0) % MCV (80.0-100.0) fL MCH (25.0-35.0) pg MCHC (31.0-37.0) g/dL RDW (11.5-15.5) % Plt Count (150-450) k/uL Neutrophils % % Lymphocytes % % Monocytes % % Eosinophils % % Basophils % % Neutrophils # (1.3-7.7) k/uL Lymphocytes # (1.0-4.8) k/uL Monocytes # (0-1.0) k/uL Eosinophils # (0-0.7) k/uL Basophils # (0-0.2) k/uL Sodium (137-145) mmol/L Potassium (3.5-5.1) mmol/L Chloride (98-107) mmol/L Carbon Dioxide (22-30) mmol/L Anion Gap mmol/L BUN (9-20) mg/dL Creatinine (0.66-1.25) mg/dL Est GFR (CKD-EPI)AfAm (>60 ml/min/1.73 sqM) Est GFR (CKD-EPI)NonAf (>60 ml/min/1.73 sqM) Glucose (74-99) mg/dL Plasma Lactic Acid Narendra (0.7-2.0) mmol/L Calcium (8.4-10.2) mg/dL Total Bilirubin (0.2-1.3) mg/dL AST (17-59) U/L ALT (4-49) U/L Alkaline Phosphatase (38-126) U/L Total Protein (6.3-8.2) g/dL Albumin (3.5-5.0) g/dL Lipase (23-300) U/L Urine Color Yellow Urine Appearance Clear (Clear) Urine pH 7.5 (5.0-8.0) Ur Specific [place] 1.019 (1.001-1.035) Urine Protein Negative (Negative) Urine Glucose (UA) Negative (Negative) Urine Ketones Negative (Negative) Urine Blood Negative (Negative) Urine Nitrite Negative (Negative) Urine Bilirubin Negative (Negative) Urine Urobilinogen <2.0 (<2.0) mg/dL Ur Leukocyte Esterase Negative (Negative) - EKG Data EKG Comments: EKG demonstrates normal sinus rhythm with a ventricular rate of 69. NM interval 148. QRS 84. QTC of 450. No acute ST segment elevations or depressions concerning for ischemic changes Disposition Clinical Impression: Crohns disease, Abdominal pain Disposition: HOME SELF-CARE Condition: Stable Instructions (If sedation given, give patient instructions): Abdominal Pain (ED) Additional Instructions: Please call make an appointment with Dr. Narvaez within 2 weeks. Return to the emergency for any new or worsening symptoms Is patient prescribed a controlled substance at d/c from ED?: Yes When asked, does pt state using other controlled substances?: No If prescribed controlled substance>3 days was MAPS reviewed?: Prescribed <3 Days If opioid is for acute pain is fill amount 7 days or less?: Yes If Rx opioid, was Start Talking consent form obtained?: No Referrals: None,Stated [Primary Care Provider] - 1-2 days Marguerite Narvaez MD [STAFF PHYSICIAN] - 1-2 days Time of Disposition: 22:26
[2019-10-11 22:22] LABS: Appearance,Urine Clear (Clear); Bilirubin,Urine Negative (Negative); Blood,Urine Negative (Negative); Color,Urine Yellow; Glucose,Urine (UA) Negative (Negative); Ketones,Urine Negative (Negative); Leukocyte Esterase,Urine Negative (Negative); Nitrite,Urine Negative (Negative); PH, Urine 7.5 (5.0-8.0); Protein,Urine Negative (Negative); Specific Gravity,Urine 1.019 (1.001-1.035); Urobilinogen,Urine <2.0 mg/dL (<2.0)
[2019-10-11] MEDS ORDERED: traMADol 50 MG STARTER PACK 3 TAB BTL PO STA (22:22)
[2019-10-11 23:58] VITALS: BP 122/79; PULSE 68; TEMP 97.9
== END 2019-10-11 23:14 | disposition home or self-care (01) ==
LOC: EC 19:13
DX: K50.90 Crohn's disease, unspecified, without complications (principal); R11.0 Nausea; K63.89 Other specified diseases of intestine; F17.200 Nicotine dependence, unspecified, uncomplicated; Z88.8 Allergy status to other drugs, medicaments and biological substances; Z87.19 Personal history of other diseases of the digestive system
CPT/HCPCS: 99284; 96374; 96375; 96376; 96361 ×2; 36415; 93005; 80053; 83605; 83690; 85025; 81003; 74177; J2405; J1170; Q9967

== ENCOUNTER 2019-10-15 15:02 | Inpatient (IN) | payer OTHER ==
[2019-10-15] MEDS ORDERED: SODIUM CHLORIDE 0.9% 1,000 ML IV STA ×2 (15:45→16:10)
[2019-10-15] MEDS ORDERED: MORPHINE SULFATE 4 MG/ML SYRINGE IV STA (15:45)
[2019-10-15 15:58] LABS: Basophils # (A) 0.1 k/uL (0-0.2); Basophils % (A) 1 %; Eosinophils # (A) 0.2 k/uL (0-0.7); Eosinophils % (A) 3 %; HGB 13.8 gm/dL (13.0-17.5); Lymphocytes # (A) 2.1 k/uL (1.0-4.8); Lymphocytes % (A) 28 %; MCHC 32.9 g/dL (31.0-37.0); MCV 91.3 fL (80.0-100.0); Mean Platelet Volume 7.3; Monocytes # (A) 0.4 k/uL (0-1.0); Monocytes % (A) 5 %; Neutrophils # (A) 4.6 k/uL (1.3-7.7); Neutrophils % (A) 61 %; Platelet Count 300 k/uL (150-450); RDW 12.3 % (11.5-15.5); WBC 7.6 k/uL (3.8-10.6)
--- NOTE | 2019-10-15 16:06 | ED ---
General Adult HPI <Vincenzo Eisenberg Callum - Last Filed: 10/15/19 18:01> - General Source: patient, RN notes reviewed, old records reviewed Mode of arrival: ambulatory Limitations: no limitations <Trent Patel - Last Filed: 10/15/19 18:37> - General Chief complaint: Abdominal Pain Stated complaint: Crohns flare up Time Seen by Provider: 10/15/19 15:38 - History of Present Illness Initial comments: 39-year-old male patient passed history of Crohn's disease versus ED for chief complaint of abdominal pain. Patient reports that this or this emergency department 2 days ago for a Crohn's exacerbation. Discharge on steroids. Patient reports that before presenting to Hospital he felt what he describes a pop in his epigastric region, doubling him over in pain. Patient then presents to emergency department. Denies any other complaints. Systemic: Pt denies fatigue, fever/chills, rash. Pt denies weakness, night sweats, weight loss. Neuro: Pt denies headache, visual disturbances, syncope or pre-syncope. HEENT: Pt denies ocular discharge or irritation, otalgia, rhinorrhea, pharyngitis or notable lymphadenopathy. Cardiopulmonary: Pt denies chest pain, SOB, heart palpitations, dyspnea on exer tion. Abdominal/GI: Pt denies n/v/d. : Pt denies dysuria, burning w/ urination, frequency/urgency. Denies new onset urinary or bowel incontinence. MSK: Pt denies myalgia, loss of strength or function in extremities. Neuro: Pt denies new onset weakness, paresthesias. (Trent Patel) - Related Data Home Medications Medication Instructions Recorded Confirmed No Known Home Medications 10/15/19 10/15/19 Allergies Allergy/AdvReac Type Severity Reaction Status Date / Time diphenhydramine AdvReac Unknown Rapid Verified 10/15/19 18:36 [From Benadryl] Heart Rate Review of Systems ROS Other: All systems not noted in ROS Statement are negative. <KathiacoreyVincenzo Callum - Last Filed: 10/15/19 18:01> ROS Other: All systems not noted in ROS Statement are negative. <Trent Patel - Last Filed: 10/15/19 18:37> ROS Statement: Those systems with pertinent positive or pertinent negative responses have been documented in the HPI. Past Medical History Past Medical History: GERD/Reflux Additional Past Medical History / Comment(s): crohns, KIDNEY STONES, History of Any Multi-Drug Resistant Organisms: None Reported Past Surgical History: Adenoidectomy, Hernia Repair Additional Past Surgical History / Comment(s): RT INGUIAL HERNIA REPAIR. SX FOR DEVIATED SEPTUM, Past Anesthesia/Blood Transfusion Reactions: No Reported Reaction Past Psychological History: No Psychological Hx Reported Smoking Status: Current every day smoker Past Alcohol Use History: None Reported Past Drug Use History: None Reported - Past Family History Mother Family Medical History: Thyroid Disorder Additional Family Medical History / Comment(s): MOM AGE 50 FROM COMPLICATIONS OF MS Father Family Medical History: Hypertension <Trent Patel - Last Filed: 10/15/19 18:37> General Exam Limitations: no limitations <Trent Patel - Last Filed: 10/15/19 18:37> - General Exam Comments Initial Comments: Constitutional: NAD, AOX3, Pt has pleasant affect. HEENT: NC/AT, trachea midline, neck supple, no lymphadenopathy. Posterior pharynx non erythematous, without exudates. External ears appear normal, without discharge. Mucous membranes moist. Eyes PERRLA, EOM intact. There is no scleral icterus. No pallor noted. Cardiopulmonary: RRR, no murmurs, rubs or gallops, no JVD noted. Lungs CTAB in anterior and posterior roberts. No peripheral edema. Abdominal exam: Abdomen soft and non-distended. Abdomen tender to palpaton in epigastric region. No guarding, no ridigity. Bowel sounds active in LLQ. No hepatosplenomegaly. No ecchymosis Neuro: CN II-XII grossly intact. No nuchal rigidity. No raccon eyes, no kurtz sign, no hemotympanum. No cervical spinal tenderness. MSK: No posterior calf tenderness bilaterally, homans sign negative bilaterally. Posterior tibialis and radial pulse +2 bilaterally. Sensation intact in upper and lower extremities. Full active ROM in upper and lower extremities, 5/5 stregnth. (Trent Patel) Course Vital Signs 10/15/19 15:16 Temperature 98.5 F Pulse Rate 71 Respiratory 16 Rate Blood Pressure 143/86 O2 Sat by Pulse 100 Oximetry Medical Decision Making - Lab Data Result diagrams: 10/15/19 15:47 <ElginVincenzo Callum - Last Filed: 10/15/19 18:01> - Lab Data Result diagrams: 10/15/19 15:47 10/15/19 15:36 <Trent Patel - Last Filed: 10/15/19 18:37> - Medical Decision Making 39-year-old male presenting with abdominal pain, worsening over the past several days, this is a repeat visit for abdominal pain. Patient has history of Crohn's disease. CT is performed which shows concern for perforation at the terminal ileum. I did initiate antibiotics and IV steroids as well as pain control and IV fluids. Discussed case with general surgery on-call Dr. Art, who will see this patient in consultation. I discussed case with Dr. Garg who will admit the patient. (Vincenzo Eisenberg) 39-year-old male patient passed history of Crohn's disease versus ED for chief complaint of abdominal pain. Patient reports that this or this emergency department 2 days ago for a Crohn's exacerbation. Discharge on steroids. Patient reports that before presenting to Hospital he felt what he describes a pop in his epigastric region, doubling him over in pain. Patient then presents to emergency department. Denies any other complaints. She developed signs are stable, afebrile. Physical exam displayed tenderness to palpation in epigastric region. No guarding or rigidity. Laboratory investigations were obtained. Overall noncompressive. No leukocytosis. Lactic acidosis. CT abdomen and pel vis was obtained for concern for perforation. This did display a small contained rupture extending in the cephalad orientation from the terminal ileum. Patient will be admitted for Crohn's exacerbation. Case discussed with Dr. Eisenberg (Trent Patel) - Lab Data Lab Results 10/15/19 10/15/19 10/15/19 Range/Units 15:36 15:36 15:47 WBC 7.6 (3.8-10.6) k/uL RBC 4.60 (4.30-5.90) m/uL Hgb 13.8 (13.0-17.5) gm/dL Hct 42.0 (39.0-53.0) % MCV 91.3 (80.0-100.0) fL MCH 30.0 (25.0-35.0) pg MCHC 32.9 (31.0-37.0) g/dL RDW 12.3 (11.5-15.5) % Plt Count 300 (150-450) k/uL Neutrophils % 61 % Lymphocytes % 28 % Monocytes % 5 % Eosinophils % 3 % Basophils % 1 % Neutrophils # 4.6 (1.3-7.7) k/uL Lymphocytes # 2.1 (1.0-4.8) k/uL Monocytes # 0.4 (0-1.0) k/uL Eosinophils # 0.2 (0-0.7) k/uL Basophils # 0.1 (0-0.2) k/uL Sodium 139 (137-145) mmol/L Potassium 3.9 (3.5-5.1) mmol/L Chloride 105 (98-107) mmol/L Carbon Dioxide 30 (22-30) mmol/L Anion Gap 4 mmol/L BUN 22 H (9-20) mg/dL Creatinine 1.01 (0.66-1.25) mg/dL Est GFR (CKD-EPI)AfAm >90 (>60 ml/min/1.73 sqM) Est GFR (CKD-EPI)NonAf >90 (>60 ml/min/1.73 sqM) Glucose 132 H (74-99) mg/dL Plasma Lactic Acid Narendra 1.7 (0.7-2.0) mmol/L Calcium 8.8 (8.4-10.2) mg/dL Total Bilirubin 0.3 (0.2-1.3) mg/dL AST 17 (17-59) U/L ALT 13 (4-49) U/L Alkaline Phosphatase 71 (38-126) U/L Total Protein 6.7 (6.3-8.2) g/dL Albumin 3.7 (3.5-5.0) g/dL Lipase 137 (23-300) U/L Disposition <Vincnezo Eisenberg - Last Filed: 10/15/19 18:01> Is patient prescribed a controlled substance at d/c from ED?: No <Trent Patel - Last Filed: 10/15/19 18:37> Clinical Impression: Exacerbation of Crohn's disease Narrative: small contained small bowel perforation (Trent Patel) Disposition: ADMITTED IP TO THIS HOSP Condition: Serious Referrals: None,Stated [Primary Care Provider] - 1-2 days
[2019-10-15] MEDS ORDERED: HYDROmorphone 0.5 MG/0.5 ML SYRINGE IVP STA (16:19)
--- NOTE | 2019-10-15 16:27 | CT ---
EXAMINATION TYPE: CT abdomen pelvis w con DATE OF EXAM: 10/15/2019 COMPARISON: Prior CT done 10/11/2019 HISTORY: abdominal pain CT DLP: 637.6 mGycm Automated exposure control for dose reduction was used. TECHNIQUE: Helical acquisition of images from the lung bases through the pelvis have been completed. CONTRAST: Performed without Oral Contrast and with IV Contrast, patient injected with 100 mL of Isovue 300. FINDINGS: LUNG BASES: No significant abnormality is appreciated. AORTA: No significant abnormality is appreciated. LIVER/GB: No significant abnormality is appreciated. PANCREAS: No significant abnormality is seen. SPLEEN: No significant abnormality is seen. ADRENALS: No significant abnormality is seen. KIDNEYS: No significant change is seen, punctate nonobstructive calculus present in the midpole the l eft kidney. REPRODUCTIVE ORGANS: No significant abnormality is seen BOWEL: Again noted is thickening along the terminal ileum and portions of the descending colon. Ther e is an abnormal focus as previously noted adjacent to the terminal ileum which shows hyperemia and m ay be a localized diverticulum or contained rupture. FREE AIR: No Free Air visible. ASCITES: None visible. PELVIC ADENOPATHY: None visualized. RETROPERITONEAL ADENOPATHY: No Retroperitoneal Adenopathy visible. URINARY BLADDER: No significant abnormality is seen. OSSEOUS STRUCTURES: No significant abnormality is seen. IMPRESSION: FINDINGS SIMILAR TO PRIOR EXAM. THERE MAY BE A SMALL CONTAINED RUPTURE EXTENDING IN A CEPHALAD ORIENT ATION FROM THE TERMINAL ILEUM, CORONAL IMAGE #35, AXIAL IMAGE 62, SIMILAR APPEARANCE SEEN ON PRIOR EX AM AXIAL IMAGE #63 AND SAGITTAL IMAGE NUMBER 52
[2019-10-15] MEDS ORDERED: PIPERACILLIN-TAZOBACTAM 3.375 GM in SODIUM CHLORIDE 0.9% 100 ML IVPB STA (17:06)
[2019-10-15] MEDS ORDERED: methylPREDNISolone SOD SUCCI 125 MG/2 ML VIAL IV STA (17:51)
[2019-10-15] MEDS ORDERED: HYDROmorphone 1 MG/ML 1 ML SYRINGE IVP STA (17:51)
[2019-10-15 17:57] LABS: ALT 13 U/L (4-49); AST 17 U/L (17-59); African American GFR (CKD) >90 (>60 ml/min/1.73 sqM); Albumin 3.7 g/dL (3.5-5.0); Alkaline Phosphatase 71 U/L (38-126); Anion Gap 4 mmol/L; Blood Urea Nitrogen 22 mg/dL (9-20); Calcium 8.8 mg/dL (8.4-10.2); Carbon Dioxide 30 mmol/L (22-30); Chloride 105 mmol/L (98-107); Glucose 132 mg/dL (74-99); Non-African American GFR(CKD) >90 (>60 ml/min/1.73 sqM); Potassium 3.9 mmol/L (3.5-5.1); Sodium 139 mmol/L (137-145); Total Bilirubin 0.3 mg/dL (0.2-1.3); Total Protein 6.7 g/dL (6.3-8.2)
[2019-10-15] MEDS ORDERED: NALOXONE 0.4 MG/ML 1 ML VIAL IV PRN (18:33)
[2019-10-15] MEDS ORDERED: HYDROmorphone 1 MG/ML 1 ML SYRINGE IVP PRN (18:33)
[2019-10-15] MEDS ORDERED: ACETAMINOPHEN TAB 325 MG TAB PO PRN (18:33)
[2019-10-15] MEDS ORDERED: SODIUM CHLORIDE 0.9% 1,000 ML IV SCH (18:45)
[2019-10-15] MEDS: HYDROmorphone 1 MG/ML 1 ML SYRINGE IVP PRN ×2 (19:49→23:14)
[2019-10-15] MEDS: NICOTINE 21MG/24HR PATCH TRANSDERM SCH (20:29)
[2019-10-15] MEDS ORDERED: LORazepam 2 MG/ML INJ IV SCH (21:00)
--- NOTE | 2019-10-15 21:56 | HP ---
HISTORY AND PHYSICAL CHIEF COMPLAINT: Acute abdominal pain. HISTORY OF PRESENT ILLNESS: This gentleman has history of Crohn's. He has been on prednisone taper, and he was just supposed to start Humira. However, on the day of admission, he developed immediate and acute and intense sharp abdominal pain to her left upper quadrant. He came to the emergency room where he was found to have a perforated viscus. He has not had any chills, fever, hematemesis, etc. He has had no melena, nor hematochezia. REVIEW OF SYSTEMS: He has had no headaches, neurologic problems, shortness of breath, chest pain, cough, hemoptysis, heart disease, hypertension, hepatitis, cirrhosis, renal failure, hematuria, frequency, urgency, dysuria, incontinence, diabetes, etc. Past medical history, family history and social histories are unremarkable otherwise. He is only on prednisone taper. He is ALLERGIC TO BENADRYL. Surgically he has had a herniorrhaphy. He smokes half pack of cigarettes a day. LABORATORY DATA: Laboratory studies reveal a normal CBC. BUN was 22 and creatinine 1.01. Glucose is 132. PHYSICAL EXAM: Blood pressure is 155/90 with a pulse of 71, temperature 99, and respirations were normal. In general he appeared to be slender, well developed, uncomfortable. Skin color is normal. Skin is warm, dry. Lymph nodes not enlarged. Head, ears, eyes, nose, mouth, and throat were normal. Neck veins not distended. Thyroid was not enlarged. Chest is clear. Cardiac exam demonstrated normal sinus rhythm and no murmurs or extra sounds. Abdomen is flat and because of his pain, there was no manual exam. Bowel sounds are not heard. Extremities: Normal. Neurologic: He is intact. IMPRESSION: 1. Perforated viscus. 2. Crohn's disease. PLAN: 1. Bed rest. 2. IV fluids. 3. N.p.o. 4. Analgesics. 5. General surgery consult. 6. Gastroenterology consult. MMODL / IJN: [id number] /
[2019-10-15] MEDS: PIPERACILLIN-TAZOBACTAM 3.375 GM in SODIUM CHLORIDE 0.9% 100 ML IVPB SCH (23:15)
[2019-10-15 23:40] LABS: Appearance,Urine Clear (Clear); Bilirubin,Urine Negative (Negative); Blood,Urine Trace (Negative); Color,Urine Light Yellow; Glucose,Urine (UA) Negative (Negative); Ketones,Urine Negative (Negative); Leukocyte Esterase,Urine Negative (Negative); Mucus,Urine Rare /hpf; Nitrite,Urine Negative (Negative); Protein,Urine Negative (Negative); RBC,Urine 2 /hpf (0-5); Specific Gravity,Urine 1.021 (1.001-1.035); Urobilinogen,Urine <2.0 mg/dL (<2.0)
[2019-10-16] MEDS: HYDROmorphone 1 MG/ML 1 ML SYRINGE IVP PRN ×4 (03:55→14:02)
[2019-10-16] MEDS: NICOTINE 21MG/24HR PATCH TRANSDERM SCH (07:52)
[2019-10-16] MEDS: PIPERACILLIN-TAZOBACTAM 3.375 GM in SODIUM CHLORIDE 0.9% 100 ML IVPB SCH ×2 (08:28→16:04)
[2019-10-16] MEDS ORDERED: HYDROmorphone 1 MG/ML 1 ML SYRINGE IVP PRN (10:38)
--- NOTE | 2019-10-16 14:34 | P.GSCN ---
<Ramona Lance A - Last Filed: 10/16/19 14:25> History of Present Illness Consult date: 10/16/19 Reason for Consult: Abdominal pain Requesting physician: Layton Garg History of present illness: CHIEF COMPLAINT: Abdominal pain HISTORY OF PRESENT ILLNESS: 39-year-old male presents to emergency room with a chief complaint of abdominal pain. Patient reports he has been having abdominal pain for the past few days. He denies nausea or vomiting. Denies diarrhea or constipation. He is passing flatus this morning. PAST MEDICAL HISTORY: See list. PAST SURGICAL HISTORY: See list. MEDICATIONS: See list. ALLERGIES: See list. SOCIAL HISTORY: No illicit drug use. REVIEW OF SYSTEMS: CONSTITUTIONAL: Denies fever or chills. HEENT: Denies blurred vision, vision changes, or eye pain. Denies hemoptysis ENDOCRINE: Denies heat or cold intolerance. CARDIOVASCULAR: Denies chest pain or pressure. RESPIRATORY: No shortness of breath. GASTROINTESTINAL: See HPI for pertinent findings NEURO: Denies history of seizures. PSYCH: No depression or suicidal ideation HEMATOLOGIC: Denies bleeding disorders. LYMPHATIC: The patient denies any lumps and bumps around the neck. GENITOURINARY: Denies any blood in urine or increased urinary frequency. MUSCULOSKELETAL: Denies myalgias. Denies joint swelling. Denies decreased range of motion beyond patients baseline. SKIN: Denies pruitis. Denies rash. PHYSICAL EXAM: VITAL SIGNS: Reviewed GENERAL: Well-developed in no acute distress. HEENT: No sclera icterus. Extraocular movements grossly intact. Moist buccal mucosa. Head is atraumatic, normocephalic. Hears conversational speech. No nasal drainage. NECK: Supple without lymphadenopathy. CHEST: Non-labored respirations and equal bilateral excursions. CARDIOVASCULAR: Regular rate with regular rhythm. Palpable 2+ radial pulses. ABDOMEN: Soft. Nondistended. Diffuse mild tenderness upon palpation. No peritonitis. MUSCULOSKELETAL: No clubbing, cyanosis or edema. NEUROLOGIC: No focal or lateralizing signs. Cranial nerves II through XII grossly intact. PSYCH: Appropriate affect. Alert and oriented to person, place and time. SKIN: Well perfused. Good skin turgor. LABORATORY DATA: WBC 7.6. Hemoglobin 13.8. Platelet count 300. Potassium 3.9. BUN 22. Creatinine 1.01. Lactic acid 1.7. IMAGING: CT abdomen pelvis: Small contained rupture extending into the cephalad orientation from the terminal ileum ASSESSMENT: 1. Abdominal pain 2. Crohns disease with localized perforation PLAN: Dr. Vasques evaluated patient at the bedside. She requested IR drainage. However, IR reports nothing to drain on CT films. Dr. Vasques stated patient was cleared for discharge from a surgical standpoint on oral antibiotics. No surgical intervention recommended. Dr. Vasques recommends that Dr. Narvaez establish patient with a surgeon that specializes in Crohn's disease at a tertiary care center in the event that he require surgical intervention in the future. Nurse practitioner note has been reviewed by physician. Signing provider agrees with the documented findings, assessment, and plan of care. Past Medical History Past Medical History: GERD/Reflux Additional Past Medical History / Comment(s): crohns, KIDNEY STONES, History of Any Multi-Drug Resistant Organisms: None Reported Past Surgical History: Adenoidectomy, Hernia Repair Additional Past Surgical History / Comment(s): RT INGUIAL HERNIA REPAIR. SX FOR DEVIATED SEPTUM, Past Anesthesia/Blood Transfusion Reactions: No Reported Reaction Past Psychological History: No Psychological Hx Reported Additional Psychological History / Comment(s): PT LIVES WITH HIS AND 2 CHILDREN. 1 DOG. 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 NO OUTSDE SERVICES, NO MED EQUIPMENT. Smoking Status: Current every day smoker Past Alcohol Use History: None Reported Additional Past Alcohol Use History / Comment(s): STARTED SMOKING AT AGE 19, SMOKES 1/2 PPD. Past Drug Use History: None Reported - Past Family History Mother Family Medical History: Thyroid Disorder Additional Family Medical History / Comment(s): MOM AGE 50 FROM COMPLICATIONS OF MS Father Family Medical History: Hypertension Medications and Allergies Home Medications Medication Instructions Recorded Confirmed Type Amoxic-Pot Clav 875-125Mg 1 tab PO Q12HR #20 tablet 10/16/19 Rx [Augmentin 875-125] Allergies Allergy/AdvReac Type Severity Reaction Status Date / Time diphenhydramine AdvReac Unknown Rapid Verified 10/15/19 18:36 [From Benadryl] Heart Rate Surgical - Exam Vital Signs Temp Pulse Resp BP Pulse Ox 98.5 F 71 16 143/86 100 10/15/19 15:16 10/15/19 15:16 10/15/19 15:16 10/15/19 15:16 10/15/19 15:16 Results - Labs 10/15/19 15:47 10/15/19 15:36 Abnormal Lab Results - Last 24 Hours (Table) 10/15/19 10/15/19 Range/Units 15:36 23:30 BUN 22 H (9-20) mg/dL Glucose 132 H (74-99) mg/dL Urine Blood Trace H (Negative) Urine Mucus Rare H (None) /hpf Diabetes panel 10/15/19 Range/Units 15:36 Sodium 139 (137-145) mmol/L Potassium 3.9 (3.5-5.1) mmol/L Chloride 105 (98-107) mmol/L Carbon Dioxide 30 (22-30) mmol/L BUN 22 H (9-20) mg/dL Creatinine 1.01 (0.66-1.25) mg/dL Glucose 132 H (74-99) mg/dL Calcium 8.8 (8.4-10.2) mg/dL AST 17 (17-59) U/L ALT 13 (4-49) U/L Alkaline Phosphatase 71 (38-126) U/L Total Protein 6.7 (6.3-8.2) g/dL Albumin 3.7 (3.5-5.0) g/dL Calcium panel 10/15/19 Range/Units 15:36 Calcium 8.8 (8.4-10.2) mg/dL Albumin 3.7 (3.5-5.0) g/dL Pituitary panel 10/15/19 Range/Units 15:36 Sodium 139 (137-145) mmol/L Potassium 3.9 (3.5-5.1) mmol/L Chloride 105 (98-107) mmol/L Carbon Dioxide 30 (22-30) mmol/L BUN 22 H (9-20) mg/dL Creatinine 1.01 (0.66-1.25) mg/dL Glucose 132 H (74-99) mg/dL Calcium 8.8 (8.4-10.2) mg/dL Adrenal panel 10/15/19 Range/Units 15:36 Sodium 139 (137-145) mmol/L Potassium 3.9 (3.5-5.1) mmol/L Chloride 105 (98-107) mmol/L Carbon Dioxide 30 (22-30) mmol/L BUN 22 H (9-20) mg/dL Creatinine 1.01 (0.66-1.25) mg/dL Glucose 132 H (74-99) mg/dL Calcium 8.8 (8.4-10.2) mg/dL Total Bilirubin 0.3 (0.2-1.3) mg/dL AST 17 (17-59) U/L ALT 13 (4-49) U/L Alkaline Phosphatase 71 (38-126) U/L Total Protein 6.7 (6.3-8.2) g/dL Albumin 3.7 (3.5-5.0) g/dL <Lorrie Vasques - Last Filed: 10/16/19 16:41> History of Present Illness History of present illness: Patient seen and evaluated. Patient has poorly controlled Crohn's disease due to patient noncompliance. Patient has high pain seeking behaviors. Overall, he has complicated Crohn's disease which would best benefit from tertiary care assessment. At this time, patient clinically stable afebrile. Patient offered pain management services at present however patient eager to be discharged home. Recommend referral to a tertiary care center for surgical management of his Crohn's disease Surgical - Exam Vital Signs Temp Pulse Resp BP Pulse Ox 98.5 F 71 16 143/86 100 10/15/19 15:16 10/15/19 15:16 10/15/19 15:16 10/15/19 15:16 10/15/19 15:16 Results - Labs 10/15/19 15:47 10/15/19 15:36 Abnormal Lab Results - Last 24 Hours (Table) 10/15/19 10/15/19 Range/Units 15:36 23:30 BUN 22 H (9-20) mg/dL Glucose 132 H (74-99) mg/dL Urine Blood Trace H (Negative) Urine Mucus Rare H (None) /hpf Diabetes panel 10/15/19 Range/Units 15:36 Sodium 139 (137-145) mmol/L Potassium 3.9 (3.5-5.1) mmol/L Chloride 105 (98-107) mmol/L Carbon Dioxide 30 (22-30) mmol/L BUN 22 H (9-20) mg/dL Creatinine 1.01 (0.66-1.25) mg/dL Glucose 132 H (74-99) mg/dL Calcium 8.8 (8.4-10.2) mg/dL AST 17 (17-59) U/L ALT 13 (4-49) U/L Alkaline Phosphatase 71 (38-126) U/L Total Protein 6.7 (6.3-8.2) g/dL Albumin 3.7 (3.5-5.0) g/dL Calcium panel 10/15/19 Range/Units 15:36 Calcium 8.8 (8.4-10.2) mg/dL Albumin 3.7 (3.5-5.0) g/dL Pituitary panel 10/15/19 Range/Units 15:36 Sodium 139 (137-145) mmol/L Potassium 3.9 (3.5-5.1) mmol/L Chloride 105 (98-107) mmol/L Carbon Dioxide 30 (22-30) mmol/L BUN 22 H (9-20) mg/dL Creatinine 1.01 (0.66-1.25) mg/dL Glucose 132 H (74-99) mg/dL Calcium 8.8 (8.4-10.2) mg/dL Adrenal panel 10/15/19 Range/Units 15:36 Sodium 139 (137-145) mmol/L Potassium 3.9 (3.5-5.1) mmol/L Chloride 105 (98-107) mmol/L Carbon Dioxide 30 (22-30) mmol/L BUN 22 H (9-20) mg/dL Creatinine 1.01 (0.66-1.25) mg/dL Glucose 132 H (74-99) mg/dL Calcium 8.8 (8.4-10.2) mg/dL Total Bilirubin 0.3 (0.2-1.3) mg/dL AST 17 (17-59) U/L ALT 13 (4-49) U/L Alkaline Phosphatase 71 (38-126) U/L Total Protein 6.7 (6.3-8.2) g/dL Albumin 3.7 (3.5-5.0) g/dL Assessment and Plan (1) Chronic pain syndrome Status: Acute Code(s): G89.4 - CHRONIC PAIN SYNDROME SNOMED Code(s): 087316486 (2) Tobacco abuse Status: Acute Code(s): Z72.0 - TOBACCO USE SNOMED Code(s): 831980315 (3) Noncompliance with medication regimen Status: Acute Code(s): Z91.14 - PATIENT'S OTHER NONCOMPLIANCE WITH MEDICATION REGIMEN SNOMED Code(s): 608013858 (4) Crohns disease Status: Acute Code(s): K50.90 - CROHN'S DISEASE, UNSPECIFIED, WITHOUT COMPLICATIONS SNOMED Code(s): 56531632 (5) Exacerbation of Crohn's disease Status: Acute Code(s): K50.90 - CROHN'S DISEASE, UNSPECIFIED, WITHOUT COMPLICA TIONS SNOMED Code(s): 31660120 (6) Intestinal abscess Status: Acute Code(s): K63.0 - ABSCESS OF INTESTINE SNOMED Code(s): 50745343
[2019-10-16 15:37] VITALS: BP 136/70; PULSE 80; RESP 16; TEMP 98.6
--- NOTE | 2019-10-17 15:17 | DS ---
DISCHARGE SUMMARY CHIEF COMPLAINT: Abdominal pain. HISTORY OF PRESENT ILLNESS AND PHYSICAL EXAM: Details of this man's history and physical can be found in the initial workup. LABORATORY STUDIES: While he was in the hospital, he had laboratory studies, details of which can be found in the laboratory section of his chart. COURSE IN THE HOSPITAL: After admission, he was placed at bedrest, he was started on intravenous fluids and kept n.p.o. He was seen by General Surgery. He did not develop peritonitis, fever and chills, elevated white count, . He was doing fairly well and GI and General Surgery felt that he could be discharged on the and he will go home on his usual activity, diet, and medication and he will follow up in the office in a few days. FINAL DIAGNOSES: 1. Perforated viscus. 2. Crohn's disease. OPERATIONS: None. CONSULTATIONS: Gastroenterology and Surgery. He is improved. MMODL / IJN: [id number] /
== END 2019-10-16 16:23 | disposition home or self-care (01) | DRG 385 ==
LOC: EC 15:02 → 4SSUR 17:10
PROVIDERS: ADMIT Family Medicine; ATTEND Family Medicine
DX: K50.914 Crohn's disease, unspecified, with abscess (principal); K63.1 Perforation of intestine (nontraumatic); E87.2 Acidosis; F17.210 Nicotine dependence, cigarettes, uncomplicated; G89.4 Chronic pain syndrome; Z82.49 Family history of ischemic heart disease and other diseases of the circulatory system; Z87.442 Personal history of urinary calculi; Z91.14 Patient's other noncompliance with medication regimen; Z91.19 Patient's noncompliance with other medical treatment and regimen; Z88.8 Allergy status to other drugs, medicaments and biological substances; Z83.49 Family history of other endocrine, nutritional and metabolic diseases; Z82.0 Family history of epilepsy and other diseases of the nervous system
CPT/HCPCS: 36415; 74177; 80053; 81001; 83605; 83690; 85025; 87040; 96361; 96365; 96374; 96375; 96376; 99285

== ENCOUNTER 2019-12-13 22:32 | Emergency (ER) | payer OTHER ==
[2019-12-13 22:38] VITALS: TEMP 98.7
[2019-12-13 23:10] LABS: Basophils # (A) 0.1 k/uL (0-0.2); Basophils % (A) 1 %; Eosinophils # (A) 0.4 k/uL (0-0.7); Eosinophils % (A) 3 %; HCT 41.8 % (39.0-53.0); HGB 13.7 gm/dL (13.0-17.5); Lymphocytes # (A) 2.8 k/uL (1.0-4.8); Lymphocytes % (A) 19 %; MCH 29.3 pg (25.0-35.0); MCHC 32.8 g/dL (31.0-37.0); MCV 89.3 fL (80.0-100.0); Mean Platelet Volume 6.9; Monocytes # (A) 0.9 k/uL (0-1.0); Monocytes % (A) 6 %; Neutrophils # (A) 10.2 k/uL (1.3-7.7); Neutrophils % (A) 70 %; Platelet Count 452 k/uL (150-450); RBC 4.68 m/uL (4.30-5.90); RDW 12.8 % (11.5-15.5); WBC 14.6 k/uL (3.8-10.6)
[2019-12-13 23:16] LABS: ALT 15 U/L (4-49); AST 23 U/L (17-59); African American GFR (CKD) >90 (>60 ml/min/1.73 sqM); Albumin 4.2 g/dL (3.5-5.0); Alkaline Phosphatase 98 U/L (38-126); Amylase 46 U/L (30-110); Anion Gap 4 mmol/L; Blood Urea Nitrogen 16 mg/dL (9-20); Calcium 9.4 mg/dL (8.4-10.2); Carbon Dioxide 31 mmol/L (22-30); Chloride 104 mmol/L (98-107); Glucose 118 mg/dL (74-99); Non-African American GFR(CKD) >90 (>60 ml/min/1.73 sqM); Potassium 4.3 mmol/L (3.5-5.1); Sodium 139 mmol/L (137-145); Total Bilirubin 0.4 mg/dL (0.2-1.3); Total Protein 7.6 g/dL (6.3-8.2)
--- NOTE | 2019-12-13 23:22 | XR ---
EXAMINATION TYPE: XR KUB DATE OF EXAM: 12/13/2019 COMPARISON: 08/14/2018 HISTORY: Abdominal pain TECHNIQUE: 2 views upright FINDINGS: Bowel gas pattern is normal. There is no sign of intestinal obstruction or pneumoperitoneum . Fecal pattern is normal. There is no evidence of a mass. Lung bases are clear. There are no pathologic calcifications over the kidneys. IMPRESSION: Nonacute abdomen. No adverse change.
[2019-12-13] MEDS ORDERED: MORPHINE SULFATE 4 MG/ML SYRINGE IV STA (23:26)
[2019-12-13] MEDS ORDERED: SODIUM CHLORIDE 0.9% 1,000 ML IV ONE (23:27)
--- NOTE | 2019-12-14 00:12 | ED ---
General Adult HPI - General Chief complaint: Abdominal Pain Stated complaint: Abdominal pain Time Seen by Provider: 12/13/19 22:45 Source: patient, RN notes reviewed, old records reviewed Mode of arrival: ambulatory Limitations: no limitations - History of Present Illness Initial comments: 39-year-old male patient passed history of Crohn's proceeded to complain of pain in his abdomen. Patient reports this started approximately 2 hours prior to presentation hospital. His right lower quadrant region. States it feels similar to his Crohn's exacerbations in the past. Denies any other complaints at this time. Denies any nausea or vomiting. Systemic: Pt denies fatigue, fever/chills, rash. Pt denies weakness, night sweats, weight loss. Neuro: Pt denies headache, visual disturbances, syncope or pre-syncope. HEENT: Pt denies ocular discharge or irritation, otalgia, rhinorrhea, pharyngitis or notable lymphadenopathy. Cardiopulmonary: Pt denies chest pain, SOB, heart palpitations, dyspnea on exertion. Abdominal/GI: Pt denies abdominal pain, n/v/d. : Pt denies dysuria, burning w/ urination, frequency/urgency. Denies new onset urinary or bowel incontinence. MSK: Pt denies myalgia, loss of strength or function in extremities. Neuro: Pt denies new onset weakness, paresthesias. - Related Data Previous Rx's Medication Instructions Recorded Amoxic-Pot Clav 875-125Mg 1 tab PO Q12HR #20 tablet 10/16/19 [Augmentin 875-125] Allergies Allergy/AdvReac Type Severity Reaction Status Date / Time diphenhydramine AdvReac Unknown Rapid Verified 12/13/19 22:38 [From Benadryl] Heart Rate Review of Systems ROS Statement: Those systems with pertinent positive or pertinent negative responses have been documented in the HPI. ROS Other: All systems not noted in ROS Statement are negative. Past Medical History Past Medical History: GERD/Reflux Additional Past Medical History / Comment(s): crohns, KIDNEY STONES, History of Any Multi-Drug Resistant Organisms: None Reported Past Surgical History: Adenoidectomy, Hernia Repair Additional Past Surgical History / Comment(s): RT INGUIAL HERNIA REPAIR. SX FOR DEVIATED SEPTUM, Past Anesthesia/Blood Transfusion Reactions: No Reported Reaction Past Psychological History: No Psychological Hx Reported Smoking Status: Current every day smoker Past Alcohol Use History: None Reported Past Drug Use History: None Reported - Past Family History Mother Family Medical History: Thyroid Disorder Additional Family Medical History / Comment(s): MOM AGE 50 FROM COMPLICATIONS OF MS Father Family Medical History: Hypertension General Exam - General Exam Comments Initial Comments: Constitutional: NAD, AOX3, Pt has pleasant affect. HEENT: NC/AT, trachea midline, neck supple, no lymphadenopathy. Posterior pharynx non erythematous, without exudates. External ears appear normal, without discharge. Mucous membranes moist. Eyes PERRLA, EOM intact. There is no scleral icterus. No pallor noted. Cardiopulmonary: RRR, no murmurs, rubs or gallops, no JVD noted. Lungs CTAB in anterior and posterior roberts. No peripheral edema. Abdominal exam: Abdomen soft and non-distended. Mild tender to palpation right lower quadrant region. No guarding or rigidity.. Bowel sounds active in LLQ. No hepatosplenomegaly. No ecchymosis Neuro: CN II-XII grossly intact. No nuchal rigidity. No raccon eyes, no kurtz sign, no hemotympanum. No cervical spinal tenderness. MSK: No posterior calf tenderness bilaterally, homans sign negative bilaterally. Posterior tibialis and radial pulse +2 bilaterally. Sensation intact in upper and lower extremities. Full active ROM in upper and lower extremities, 5/5 stregnth. Limitations: no limitations Course Vital Signs 12/13/19 12/14/19 22:35 00:12 Temperature 98.7 F Pulse Rate 105 H 90 Respiratory 20 18 Rate Blood Pressure 126/80 132/82 O2 Sat by Pulse 97 99 Oximetry Medical Decision Making - Medical Decision Making 39-year-old male patient passed history of Crohn's proceeded to complain of pain in his abdomen. Patient reports this started approximately 2 hours prior to presentation hospital. His right lower quadrant region. States it feels similar to his Crohn's exacerbations in the past. Denies any other complaints at this time. Denies any nausea or vomiting. Patient will signs are stable, afebrile. Physical exam displayed mild amount right lower quadrant tenderness. Investigations obtained displayed mild leukocytosis. Lactic acid within normal limits. Pt states he is feeling much better. Requesting discharge, declines any advanced imaging. States that he will return to hospital tomorrow if it is worse and will otherwise follow up with PCP and GI tomorrow. case discussed with Dr. Ng. - Lab Data Result diagrams: 12/13/19 22:46 12/13/19 22:46 Lab Results 12/13/19 12/13/19 12/13/19 Range/Units 22:46 22:46 22:46 WBC 14.6 H (3.8-10.6) k/uL RBC 4.68 (4.30-5.90) m/uL Hgb 13.7 (13.0-17.5) gm/dL Hct 41.8 (39.0-53.0) % MCV 89.3 (80.0-100.0) fL MCH 29.3 (25.0-35.0) pg MCHC 32.8 (31.0-37.0) g/dL RDW 12.8 (11.5-15.5) % Plt Count 452 H (150-450) k/uL Neutrophils % 70 % Lymphocytes % 19 % Monocytes % 6 % Eosinophils % 3 % Basophils % 1 % Neutrophils # 10.2 H (1.3-7.7) k/uL Lymphocytes # 2.8 (1.0-4.8) k/uL Monocytes # 0.9 (0-1.0) k/uL Eosinophils # 0.4 (0-0.7) k/uL Basophils # 0.1 (0-0.2) k/uL Sodium 139 (137-145) mmol/L Potassium 4.3 (3.5-5.1) mmol/L Chloride 104 (98-107) mmol/L Carbon Dioxide 31 H (22-30) mmol/L Anion Gap 4 mmol/L BUN 16 (9-20) mg/dL Creatinine 0.93 (0.66-1.25) mg/dL Est GFR (CKD-EPI)AfAm >90 (>60 ml/min/1.73 sqM) Est GFR (CKD-EPI)NonAf >90 (>60 ml/min/1.73 sqM) Glucose 118 H (74-99) mg/dL Plasma Lactic Acid Narendra 1.0 (0.7-2.0) mmol/L Calcium 9.4 (8.4-10.2) mg/dL Total Bilirubin 0.4 (0.2-1.3) mg/dL AST 23 (17-59) U/L ALT 15 (4-49) U/L Alkaline Phosphatase 98 (38-126) U/L Total Protein 7.6 (6.3-8.2) g/dL Albumin 4.2 (3.5-5.0) g/dL Amylase 46 (30-110) U/L Lipase 68 (23-300) U/L Disposition Clinical Impression: Abdominal pain Disposition: HOME SELF-CARE Condition: Stable Instructions (If sedation given, give patient instructions): Abdominal Pain (ED) Additional Instructions: Follow-up with primary care provider and Dr. Narvaez tomorrow. Return to ER if condition worsens. Is patient prescribed a controlled substance at d/c from ED?: No Referrals: None,Stated [Primary Care Provider] - 1-2 days Marguerite Narvaez MD [STAFF PHYSICIAN] - 1-2 days
[2019-12-14 00:14] VITALS: BP 132/82; PULSE 90; RESP 18
== END 2019-12-14 00:23 | disposition home or self-care (01) ==
LOC: EC 22:32
DX: R10.31 Right lower quadrant pain (principal); R10.813 Right lower quadrant abdominal tenderness; D72.829 Elevated white blood cell count, unspecified; F17.200 Nicotine dependence, unspecified, uncomplicated; Z88.8 Allergy status to other drugs, medicaments and biological substances
CPT/HCPCS: 99284 ×3; 96374 ×2; 96361 ×3; 96376; 96368; 96365; 96375; 36415 ×2; 80053 ×2; 82150 ×2; 83605 ×2; 83690 ×2; 85025 ×2; 81001; 87040; 74018; 74177; J2543; J2270; J2405; J1885; J1170; J0131; Q9967

== ENCOUNTER 2019-12-14 16:13 | Emergency (ER) | payer OTHER ==
[2019-12-14 16:19] VITALS: RESP 18
[2019-12-14] MEDS ORDERED: SODIUM CHLORIDE 0.9% 1,000 ML IV STA (16:37)
[2019-12-14] MEDS ORDERED: HYDROmorphone 1 MG/ML 1 ML SYRINGE IVP STA ×2 (16:37→17:57)
[2019-12-14] MEDS ORDERED: SODIUM CHLORIDE 0.9% 500 ML 500 ML IV STA (16:37)
[2019-12-14] MEDS ORDERED: ONDANSETRON 4 MG/2 ML VIAL IVP STA (16:37)
[2019-12-14 17:10] LABS: Basophils # (A) 0.1 k/uL (0-0.2); Basophils % (A) 0 %; Eosinophils # (A) 0.4 k/uL (0-0.7); Eosinophils % (A) 3 %; HCT 43.4 % (39.0-53.0); HGB 14.4 gm/dL (13.0-17.5); Lymphocytes # (A) 2.4 k/uL (1.0-4.8); Lymphocytes % (A) 18 %; MCH 29.9 pg (25.0-35.0); MCHC 33.1 g/dL (31.0-37.0); MCV 90.4 fL (80.0-100.0); Monocytes # (A) 0.6 k/uL (0-1.0); Monocytes % (A) 4 %; Neutrophils # (A) 10.2 k/uL (1.3-7.7); Neutrophils % (A) 74 %; Platelet Count 458 k/uL (150-450); RDW 12.7 % (11.5-15.5); WBC 13.8 k/uL (3.8-10.6)
[2019-12-14 17:18] LABS: ALT 13 U/L (4-49); AST 17 U/L (17-59); African American GFR (CKD) >90 (>60 ml/min/1.73 sqM); Albumin 4.1 g/dL (3.5-5.0); Alkaline Phosphatase 93 U/L (38-126); Amylase 46 U/L (30-110); Anion Gap 9 mmol/L; Blood Urea Nitrogen 15 mg/dL (9-20); Calcium 9.3 mg/dL (8.4-10.2); Carbon Dioxide 28 mmol/L (22-30); Chloride 102 mmol/L (98-107); Glucose 116 mg/dL (74-99); Non-African American GFR(CKD) >90 (>60 ml/min/1.73 sqM); Potassium 4.3 mmol/L (3.5-5.1); Sodium 139 mmol/L (137-145); Total Bilirubin 0.5 mg/dL (0.2-1.3); Total Protein 7.5 g/dL (6.3-8.2)
[2019-12-14 17:24] LABS: Appearance,Urine Clear (Clear); Bilirubin,Urine Negative (Negative); Blood,Urine Moderate (Negative); Color,Urine Yellow; Glucose,Urine (UA) Negative (Negative); Ketones,Urine Negative (Negative); Leukocyte Esterase,Urine Negative (Negative); Mucus,Urine Many /hpf; Nitrite,Urine Negative (Negative); Protein,Urine Trace (Negative); RBC,Urine 15 /hpf (0-5); Specific Gravity,Urine 1.029 (1.001-1.035); Urobilinogen,Urine <2.0 mg/dL (<2.0); WBC,Urine 2 /hpf (0-5)
[2019-12-14] MEDS ORDERED: KETOROLAC 30 MG/ML 1 ML VIAL IVP STA (17:35)
--- NOTE | 2019-12-14 17:41 | CT ---
EXAMINATION TYPE: CT abdomen pelvis w con DATE OF EXAM: 12/14/2019 COMPARISON: October 15, 2019 HISTORY: Abdominal pain. CT DLP: 640.5 mGycm CONTRAST: CT scan of the abdomen and pelvis is performed without Oral Contrast and with IV Contrast, patient in jected with 100 mL of Isovue 300. FINDINGS: LUNG BASES-: No visible nodule. No infiltrate. LIVER/GB: No calcified gallstones. No space occupying hepatic lesion. Biliary tree is of normal ca liber. PANCREAS: No inflammation. No distinct mass. SPLEEN: No splenic enlargement. No lesion seen. ADRENALS: No nodule. No thickening. KIDNEYS/BLADDER: Interval development of mild right-sided hydronephrosis likely secondary to adjacent inflammatory process within the pelvic inlet. No evidence for left-sided hydronephrosis. Nonobstruct ing calculus mid pole left kidney. No distinct renal mass. Urinary bladder grossly unremarkable. BOWEL: There is progressive wall thickening involving the pelvic bowel loops and to a lesser extent t he proximal small bowel loops. There is progressive inflammatory change throughout the fat of the pel vis and lower abdomen. Small contained perforation is identified axial image 67 of 100 with an adjace nt area of increased attenuation felt to reflect phlegmon measuring 4.0 x 3.5 cm. Small nondrainable abscess suggested on axial image 64 of 100 and coronal image 27 of 96 measuring 1.5 cm. No evidence f or drainable abscess at this time. Associated small bowel ileus. Colon is of normal caliber. No evide nce for lisette free air. GENITAL ORGANS: No gross abnormality. LYMPH NODES: No greater than 1cm abdominal or pelvic lymph nodes are appreciated. AORTA: No significant abnormality. OSSEOUS STRUCTURES: No significant abnormality is seen. OTHER: A fluid within the pelvis measuring 5.2 x 3.7 cm. Interloop fluid noted small in amount. IMPRESSION: 1. Progressive features of Crohn's disease involving the pelvic small bowel loops. There is increasin g wall thickening, free fluid and inflammatory change. Small abscess measuring 1.5 cm adjacent to the right common iliac bifurcation (nondrainable) with adjacent area of phlegmon. See above. There is al so a small contained perforation. 2. Interval development of mild right-sided hydroureteronephrosis secondary to pelvic inlet inflammat ory change.
[2019-12-14] MEDS ORDERED: PIPERACILLIN-TAZOBACTAM 3.375 GM in SODIUM CHLORIDE 0.9% 100 ML IVPB STA (17:46)
--- NOTE | 2019-12-14 17:58 | ED ---
Abdominal Pain HPI - General Source: patient, RN notes reviewed Mode of arrival: wheelchair Limitations: no limitations <Hilario Kohli - Last Filed: 12/14/19 18:26> <Anmol Nguyen - Last Filed: 12/14/19 18:59> - General Chief Complaint: Abdominal Pain Stated Complaint: Abd pain Time Seen by Provider: 12/14/19 16:31 - History of Present Illness Initial Comments: 39-year-old male presents emergency Department chief complaint of worsening abdominal pain. Patient seen in emergency department last night for the same complaint. Patient was sent home. Patient states that the pain is worsened and he cannot tolerated. Does have a history of Crohn's patient states that he sees Dr. Buenrostro he was scheduled started hematuria but states that he has not started. Patient feels like he has a fever. Patient denies any prior abdominal surgeries. Patient does not have a current primary care physician. (Hilario Kohli) - Related Data Home Medications Medication Instructions Recorded Confirmed Acetaminophen Tab [Tylenol] 650 mg PO Q4H PRN 12/14/19 12/14/19 Ibuprofen 600 mg PO Q6H PRN 12/14/19 12/14/19 Multivitamins, Thera [Multivitamin 1 tab PO DAILY 12/14/19 12/14/19 (formulary)] Allergies Allergy/AdvReac Type Severity Reaction Status Date / Time diphenhydramine AdvReac Unknown Rapid Verified 12/14/19 17:38 [From Benadryl] Heart Rate Review of Systems ROS Other: All systems not noted in ROS Statement are negative. <Hilario Kohli - Last Filed: 12/14/19 18:26> ROS Other: All systems not noted in ROS Statement are negative. <Anmol Nguyen - Last Filed: 12/14/19 18:59> ROS Statement: Those systems with pertinent positive or pertinent negative responses have been documented in the HPI. Past Medical History Past Medical History: GERD/Reflux Additional Past Medical History / Comment(s): crohns, KIDNEY STONES, History of Any Multi-Drug Resistant Organisms: None Reported Past Surgical History: Adenoidectomy, Hernia Repair Additional Past Surgical History / Comment(s): RT INGUIAL HERNIA REPAIR. SX FOR DEVIATED SEPTUM, Past Anesthesia/Blood Transfusion Reactions: No Reported Reaction Past Psychological History: No Psychological Hx Reported Smoking Status: Current every day smoker Past Alcohol Use History: None Reported Past Drug Use History: None Reported - Past Family History Mother Family Medical History: Thyroid Disorder Additional Family Medical History / Comment(s): MOM AGE 50 FROM COMPLICATIONS OF MS Father Family Medical History: Hypertension <Hilario Kohli - Last Filed: 12/14/19 18:26> General Exam Limitations: no limitations General appearance: alert, in no apparent distress Head exam: Present: atraumatic, normocephalic, normal inspection Respiratory exam: Present: normal lung sounds bilaterally. Absent: respiratory distress, wheezes, rales, rhonchi, stridor Cardiovascular Exam: Present: regular rate, normal rhythm, normal heart sounds. Absent: systolic murmur, diastolic murmur, rubs, gallop, clicks GI/Abdominal exam: Present: soft, tenderness (Moderate to severe lower abdominal tenderness), normal bowel sounds. Absent: distended, guarding, rebound, rigid Back exam: Absent: CVA tenderness (R), CVA tenderness (L) Neurological exam: Present: alert, oriented X3, CN II-XII intact Skin exam: Present: warm, dry, intact, normal color. Absent: rash <Hilario Kohli - Last Filed: 12/14/19 18:26> Course <Anmol Nguyen - Last Filed: 12/14/19 18:59> Vital Signs 12/14/19 12/14/19 12/14/19 16:15 17:39 18:28 Temperature 98 F 102.2 F H 102.9 F H Pulse Rate 91 114 H Respiratory 18 18 Rate Blood Pressure 127/83 129/70 O2 Sat by Pulse 100 96 Oximetry - Reevaluation(s) Reevaluation #1: 12/14/19 18:25 Patient reevaluated and reexamined by myself, Dr. Nguyen. Patient does have moderate abdominal discomfort, somewhat diffuse but more in the lower abdomen. CT results reviewed. Patient updated. Case discussed with Dr. Ash, covering for Dr. Art who has previously seen this patient. He does recommend medical admission and GI consult as well as consult for Dr. Art. Also recommends IV antibiotics. Patient is updated on results and plan. I do agree with PA findings. This includes diagnostic interpretation and treatment plan. Dr. Scott has been paged for admission. 12/14/19 18:58 Case was also discussed with Dr. Jeffries, who will admit. (Anmol Nguyen) Medical Decision Making - Lab Data Result diagrams: 12/14/19 16:52 12/14/19 16:52 <Hilario Kohli - Last Filed: 12/14/19 18:26> - Lab Data Result diagrams: 12/14/19 16:52 12/14/19 16:52 <Anmol Nguyen - Last Filed: 12/14/19 18:59> - Medical Decision Making 39-year-old male present emergency from for recurrent abdominal pain. Patient CT shows evidence of worsening Crohn's inflammatory changes an intra-abdominal abscess. Patient was given Zosyn. Patient be admitted for IV antibiotics, further treatment. (Hilario Kohli) - Lab Data Lab Results 12/14/19 12/14/19 12/14/19 Range/Units 16:52 16:52 16:52 WBC 13.8 H (3.8-10.6) k/uL RBC 4.80 (4.30-5.90) m/uL Hgb 14.4 (13.0-17.5) gm/dL Hct 43.4 (39.0-53.0) % MCV 90.4 (80.0-100.0) fL MCH 29.9 (25.0-35.0) pg MCHC 33.1 (31.0-37.0) g/dL RDW 12.7 (11.5-15.5) % Plt Count 458 H (150-450) k/uL Neutrophils % 74 % Lymphocytes % 18 % Monocytes % 4 % Eosinophils % 3 % Basophils % 0 % Neutrophils # 10.2 H (1.3-7.7) k/uL Lymphocytes # 2.4 (1.0-4.8) k/uL Monocytes # 0.6 (0-1.0) k/uL Eosinophils # 0.4 (0-0.7) k/uL Basophils # 0.1 (0-0.2) k/uL Sodium 139 (137-145) mmol/L Potassium 4.3 (3.5-5.1) mmol/L Chloride 102 (98-107) mmol/L Carbon Dioxide 28 (22-30) mmol/L Anion Gap 9 mmol/L BUN 15 (9-20) mg/dL Creatinine 0.90 (0.66-1.25) mg/dL Est GFR (CKD-EPI)AfAm >90 (>60 ml/min/1.73 sqM) Est GFR (CKD-EPI)NonAf >90 (>60 ml/min/1.73 sqM) Glucose 116 H (74-99) mg/dL Plasma Lactic Acid Narendra 1.4 (0.7-2.0) mmol/L Calcium 9.3 (8.4-10.2) mg/dL Total Bilirubin 0.5 (0.2-1.3) mg/dL AST 17 (17-59) U/L ALT 13 (4-49) U/L Alkaline Phosphatase 93 (38-126) U/L Total Protein 7.5 (6.3-8.2) g/dL Albumin 4.1 (3.5-5.0) g/dL Amylase 46 (30-110) U/L Lipase 47 (23-300) U/L Urine Color Urine Appearance (Clear) Urine pH (5.0-8.0) Ur Specific Dell (1.001-1.035) Urine Protein (Negative) Urine Glucose (UA) (Negative) Urine Ketones (Negative) Urine Blood (Negative) Urine Nitrite (Negative) Urine Bilirubin (Negative) Urine Urobilinogen (<2.0) mg/dL Ur Leukocyte Esterase (Negative) Urine RBC (0-5) /hpf Urine WBC (0-5) /hpf Urine Mucus (None) /hpf 12/14/19 Range/Units 16:52 WBC (3.8-10.6) k/uL RBC (4.30-5.90) m/uL Hgb (13.0-17.5) gm/dL Hct (39.0-53.0) % MCV (80.0-100.0) fL MCH (25.0-35.0) pg MCHC (31.0-37.0) g/dL RDW (11.5-15.5) % Plt Count (150-450) k/uL Neutrophils % % Lymphocytes % % Monocytes % % Eosinophils % % Basophils % % Neutrophils # (1.3-7.7) k/uL Lymphocytes # (1.0-4.8) k/uL Monocytes # (0-1.0) k/uL Eosinophils # (0-0.7) k/uL Basophils # (0-0.2) k/uL Sodium (137-145) mmol/L Potassium (3.5-5.1) mmol/L Chloride (98-107) mmol/L Carbon Dioxide (22-30) mmol/L Anion Gap mmol/L BUN (9-20) mg/dL Creatinine (0.66-1.25) mg/dL Est GFR (CKD-EPI)AfAm (>60 ml/min/1.73 sqM) Est GFR (CKD-EPI)NonAf (>60 ml/min/1.73 sqM) Glucose (74-99) mg/dL Plasma Lactic Acid Narendra (0.7-2.0) mmol/L Calcium (8.4-10.2) mg/dL Total Bilirubin (0.2-1.3) mg/dL AST (17-59) U/L ALT (4-49) U/L Alkaline Phosphatase (38-126) U/L Total Protein (6.3-8.2) g/dL Albumin (3.5-5.0) g/dL Amylase (30-110) U/L Lipase (23-300) U/L Urine Color Yellow Urine Appearance Clear (Clear) Urine pH 6.0 (5.0-8.0) Ur Specific Dell 1.029 (1.001-1.035) Urine Protein Trace H (Negative) Urine Glucose (UA) Negative (Negative) Urine Ketones Negative (Negative) Urine Blood Moderate H (Negative) Urine Nitrite Negative (Negative) Urine Bilirubin Negative (Negative) Urine Urobilinogen <2.0 (<2.0) mg/dL Ur Leukocyte Esterase Negative (Negative) Urine RBC 15 H (0-5) /hpf Urine WBC 2 (0-5) /hpf Urine Mucus Many H (None) /hpf Disposition <Hilario Kohli - Last Filed: 12/14/19 18:26> <Anmol Nguyen - Last Filed: 12/14/19 18:59> Clinical Impression: Exacerbation of Crohn's disease, Intra-abdominal abscess, Bowel perforation Disposition[facility] Condition: Serious
[2019-12-14] MEDS ORDERED: SODIUM CHLORIDE 0.9% 1,000 ML IV SCH (18:00)
[2019-12-14] MEDS ORDERED: HYDROmorphone 0.5 MG/0.5 ML SYRINGE IVP PRN (18:00)
[2019-12-14] MEDS ORDERED: ONDANSETRON 4 MG/2 ML VIAL IVP PRN (18:00)
[2019-12-14] MEDS ORDERED: HYDROmorphone 1 MG/ML 1 ML SYRINGE IVP PRN (18:00)
[2019-12-14] MEDS ORDERED: NALOXONE 0.4 MG/ML 1 ML VIAL IV PRN (18:00)
[2019-12-14] MEDS ORDERED: ACETAMINOPHEN IV (For NPO) 1,000 MG in EMPTY BAG 1 BAG IVPB STA (18:01)
[2019-12-14 18:32] VITALS: BP 129/70; PULSE 114; TEMP 102.9
[2019-12-15] MEDS ORDERED: PIPERACILLIN-TAZOBACTAM 3.375 GM in SODIUM CHLORIDE 0.9% 100 ML IVPB SCH ×2
== END 2019-12-14 19:27 | disposition left against medical advice (07) ==
LOC: EC 16:13 → UNDOADMIN 18:26 → 5NMEDONC 18:26 → 6NMEDSUR 18:46 → 5NMEDONC 18:46 → EC 19:27
DX: K50.914 Crohn's disease, unspecified, with abscess (principal); K63.1 Perforation of intestine (nontraumatic); F17.200 Nicotine dependence, unspecified, uncomplicated; Z88.8 Allergy status to other drugs, medicaments and biological substances
CPT/HCPCS: 36415; 80053; 82150; 83605; 83690; 85025; 81001; 87040; 74177; 99284; 96365; 96368; 96375 ×3; 96376; 96361; J2543; J2405; J1885; J1170; J0131; Q9967

== ENCOUNTER 2019-12-15 11:39 | Inpatient (IN) | payer OTHER ==
[2019-12-15] MEDS ORDERED: ONDANSETRON 4 MG/2 ML VIAL IVP STA (11:50)
[2019-12-15] MEDS ORDERED: SODIUM CHLORIDE 0.9% 1,000 ML IV STA (11:50)
[2019-12-15] MEDS ORDERED: MORPHINE SULFATE 4 MG/ML SYRINGE IV STA (11:50)
[2019-12-15] MEDS ORDERED: HYDROmorphone 1 MG/ML 1 ML SYRINGE IVP STA (11:55)
[2019-12-15] MEDS ORDERED: PIPERACILLIN-TAZOBACTAM 3.375 GM in SODIUM CHLORIDE 0.9% 100 ML IVPB STA (11:55)
[2019-12-15] MEDS ORDERED: ONDANSETRON 4 MG/2 ML VIAL IVP PRN (11:57)
[2019-12-15] MEDS ORDERED: MORPHINE SULFATE 4 MG/ML SYRINGE IV PRN (11:57)
[2019-12-15] MEDS ORDERED: ACETAMINOPHEN TAB 325 MG TAB PO PRN (11:57)
[2019-12-15] MEDS ORDERED: HYDROmorphone 1 MG/ML 1 ML SYRINGE IVP PRN (11:57)
[2019-12-15] MEDS ORDERED: NALOXONE 0.4 MG/ML 1 ML VIAL IV PRN (11:57)
[2019-12-15] MEDS ORDERED: SODIUM CHLORIDE 0.9% 1,000 ML IV SCH (12:00)
--- NOTE | 2019-12-15 12:01 | ED ---
General Adult HPI - General Chief complaint: Abdominal Pain Stated complaint: fever/infection-revisit Time Seen by Provider: 12/15/19 11:49 Source: patient, family Mode of arrival: ambulatory Limitations: no limitations - History of Present Illness Initial comments: Dictation was produced using [employer] dictation software. please excuse any grammatical, word or spelling errors. This patient was cared for during a federal and state declared state of emergency secondary to Covid 19 Chief Complaint: 39-year-old male past medical history of Crohn's disease and recently diagnosed and treated, abscess presents to the emergency department for abdominal pain. History of Present Illness: Patient is a 39-year-old male he was seen in the e mergency department yesterday. He had a CT performed that at times showing intra-abdominal abscess likely secondary to complications from his Crohn's disease. Patient left AGAINST MEDICAL ADVICE. He states he left because he was worried about the current coronavirus pandemic. He was at home when his symptoms became worse causing him unbearable pain. He was convinced by his significant other to come to the emergency department for readmission. Patient for ascites been having fevers at home. The ROS documented in this emergency department record has been reviewed and confirmed by me. Those systems with pertinent positive or negative responses have been documented in the HPI. All other systems are other negative and/or noncontributory. PHYSICAL EXAM: General Impression: Alert and oriented x3, acute distress secondary to pain, tearful HEENT: Normocephalic atraumatic, extra-ocular movements intact, pupils equal and reactive to light bilaterally, mucous membranes moist. Cardiovascular: Heart regular rate and rhythm Chest: Able to complete full sentences, no retractions, no tachypnea Abdomen: Tender abdomen with diffuse tenderness. Musculoskeletal: Pulses present and equal in all extremities, no peripheral edema Motor: no focal deficits noted Neurological: CN II-XII grossly intact, no focal motor or sensory deficits noted Skin: Intact with no visualized rashes ED course: 39-year-old male past medical history of Crohn's disease presents with abdominal pain. Patient left AGAINST MEDICAL ADVICE yesterday. He returns today with a request to be readmitted to the hospital. CT from yesterday was reviewed. Did show signs of progressive Crohn's disease. Also a 1.5 cm abscess near the right common iliac bifurcation with adjacent area of phlegmon and small contained perforation. Patient given IV analgesics. He was restarted on antibiotics. Patient be admitted to medicine with consultation to GI and general surgery. - Related Data Home Medications Medication Instructions Recorded Confirmed Acetaminophen Tab [Tylenol] 650 mg PO Q4H PRN 12/14/19 12/14/19 Ibuprofen 600 mg PO Q6H PRN 12/14/19 12/14/19 Multivitamins, Thera [Multivitamin 1 tab PO DAILY 12/14/19 12/14/19 (formulary)] Allergies Allergy/AdvReac Type Severity Reaction Status Date / Time diphenhydramine AdvReac Unknown Rapid Verified 12/14/19 17:38 [From Benadryl] Heart Rate Review of Systems ROS Statement: Those systems with pertinent positive or pertinent negative responses have been documented in the HPI. ROS Other: All systems not noted in ROS Statement are negative. Past Medical History Past Medical History: GERD/Reflux Additional Past Medical History / Comment(s): crohns, KIDNEY STONES, History of Any Multi-Drug Resistant Organisms: None Reported Past Surgical History: Adenoidectomy, Hernia Repair Additional Past Surgical History / Comment(s): RT INGUIAL HERNIA REPAIR. SX FOR DEVIATED SEPTUM, Past Anesthesia/Blood Transfusion Reactions: No Reported Reaction Past Psychological History: No Psychological Hx Reported Smoking Status: Current every day smoker Past Alcohol Use History: None Reported Past Drug Use History: None Reported - Past Family History Mother Family Medical History: Thyroid Disorder Additional Family Medical History / Comment(s): MOM AGE 50 FROM COMPLICATIONS OF MS Father Family Medical History: Hypertension General Exam Limitations: no limitations Course Vital Signs 12/15/19 11:40 Temperature 98.2 F Pulse Rate 117 H Respiratory 18 Rate Blood Pressure 114/69 O2 Sat by Pulse 99 Oximetry Disposition Clinical Impression: Intra-abdominal abscess Disposition: ADMITTED IP TO THIS HOSP Condition: Fair Referrals: Layton Garg MD [Primary Care Provider] - 1-2 days Decision Time: 12:01
[2019-12-15 12:36] LABS: Basophils % (A) 0 %; Eosinophils # (A) 0.3 k/uL (0-0.7); Eosinophils % (A) 2 %; HCT 39.6 % (39.0-53.0); HGB 13.2 gm/dL (13.0-17.5); Lymphocytes # (A) 0.9 k/uL (1.0-4.8); Lymphocytes % (A) 5 %; MCHC 33.2 g/dL (31.0-37.0); MCV 90.2 fL (80.0-100.0); Mean Platelet Volume 6.9; Monocytes # (A) 0.6 k/uL (0-1.0); Monocytes % (A) 4 %; Neutrophils % (A) 88 %; Platelet Count 418 k/uL (150-450); RBC 4.39 m/uL (4.30-5.90); RDW 12.6 % (11.5-15.5); WBC 15.9 k/uL (3.8-10.6)
[2019-12-15 12:51] LABS: ALT 11 U/L (4-49); AST 14 U/L (17-59); African American GFR (CKD) >90 (>60 ml/min/1.73 sqM); Albumin 3.6 g/dL (3.5-5.0); Alkaline Phosphatase 83 U/L (38-126); Anion Gap 6 mmol/L; Blood Urea Nitrogen 14 mg/dL (9-20); Calcium 9.1 mg/dL (8.4-10.2); Carbon Dioxide 27 mmol/L (22-30); Chloride 103 mmol/L (98-107); Glucose 122 mg/dL (74-99); Non-African American GFR(CKD) >90 (>60 ml/min/1.73 sqM); Potassium 4.4 mmol/L (3.5-5.1); Sodium 136 mmol/L (137-145); Total Bilirubin 1.1 mg/dL (0.2-1.3)
[2019-12-15 13:02] LABS: Appearance,Urine Clear (Clear); Bacteria,Urine Rare /hpf; Bilirubin,Urine Negative (Negative); Blood,Urine Moderate (Negative); Color,Urine Yellow; Glucose,Urine (UA) Negative (Negative); Hyaline Casts,Urine 1 /lpf (0-2); Ketones,Urine Negative (Negative); Leukocyte Esterase,Urine Negative (Negative); Mucus,Urine Few /hpf; Nitrite,Urine Negative (Negative); Protein,Urine 1+ (Negative); RBC,Urine 38 /hpf (0-5); Specific Gravity,Urine 1.024 (1.001-1.035); Squamous Epithelial Cell,Urine <1 /hpf (0-4); Urobilinogen,Urine <2.0 mg/dL (<2.0); WBC,Urine 4 /hpf (0-5)
--- NOTE | 2019-12-15 13:30 | XR ---
EXAMINATION TYPE: XR abdomen 2V DATE OF EXAM: 12/15/2019 COMPARISON: 12/13/2019 INDICATION: Abdominal abscess TECHNIQUE: Single view abdomen upright view additional supine views are obtained. FINDINGS: There are prominent small bowel loops containing air within the midabdomen. Air is within the colon. In the upright view multiple air-fluid levels are present. Correlate for partial obstruction. Finding s appear to be worsening over the interval. Psoas margins are normal. No organomegaly is present. IMPRESSION: 1. Scattered small bowel air-fluid levels. Correlate for ileus versus partial obstruction. Findings a re progressive from comparison. A Red level critical message alert has been initiated for Jelani Scott MD via the [employer] System on 12/15/2019 1:28 PM. This message alert has been sent to Jelani Scott MD via the preferences provided by the clinician for the receipt of Radiology Critical Findings. Message ID [id number].
[2019-12-15 14:31] VITALS: BP 114/53; PULSE 97; RESP 16; TEMP 98.8
--- NOTE | 2019-12-15 15:24 | P.GSCN ---
<Ramona Lance A - Last Filed: 12/15/19 15:22> History of Present Illness Consult date: 12/15/19 Reason for Consult: intraabdominal abscess Requesting physician: Leeroy Cary History of present illness: CHIEF COMPLAINT: Abdominal pain HISTORY OF PRESENT ILLNESS: 39-year-old male with history of Crohn's disease who is well-known to surgical services who originally presented to the emergency room yesterday due to abdominal pain. Patient eventually left AMA yesterday but returned to the ER this morning again. Patient reports he has not been on any maintenance medications for his Crohn's. In the past he was advised to follow with a colorectal specialist at a tertiary care center but patient states he has not done this. PAST MEDICAL HISTORY: See list. PAST SURGICAL HISTORY: See list. MEDICATIONS: See list. ALLERGIES: See list. SOCIAL HISTORY: No illicit drug use. REVIEW OF SYSTEMS: CONSTITUTIONAL: Reports fever HEENT: Denies blurred vision, vision changes, or eye pain. Denies hemoptysis ENDOCRINE: Denies heat or cold intolerance. CARDIOVASCULAR: Denies chest pain or pressure. RESPIRATORY: No shortness of breath. GASTROINTESTINAL: Reports generalized abdominal pain. NEURO: Denies history of seizures. PSYCH: No depression or suicidal ideation HEMATOLOGIC: Denies bleeding disorders. LYMPHATIC: The patient denies any lumps and bumps around the neck. GENITOURINARY: Denies any blood in urine or increased urinary frequency. MUSCULOSKELETAL: Denies myalgias. Denies joint swelling. Denies decreased range of motion beyond patients baseline. SKIN: Denies pruitis. Denies rash. PHYSICAL EXAM: VITAL SIGNS: Reviewed GENERAL: Well-developed in no acute distress. HEENT: No sclera icterus. Extraocular movements grossly intact. Moist buccal mucosa. Head is atraumatic, normocephalic. Hears conversational speech. No nasal drainage. NECK: Supple without lymphadenopathy. CHEST: Non-labored respirations and equal bilateral excursions. CARDIOVASCULAR: Regular rate with regular rhythm. Palpable 2+ radial pulses. ABDOMEN: Soft. Nondistended. Tenderness with palpation. No peritonitis MUSCULOSKELETAL: No clubbing or cyanosis. NEUROLOGIC: No focal or lateralizing signs. Cranial nerves II through XII grossly intact. PSYCH: Appropriate affect. Alert and oriented to person, place and time. SKIN: Well perfused. Good skin turgor. LABORATORY DATA: WBC 15.9. Hemoglobin 13.2. Platelet count 418. IMAGIN. Abdominal x-ray: Scattered small bowel air-fluid levels. Correlate for ileus versus partial obstruction. 2. CT abdomen and pelvis 12/14/2019: Progressive features of Crohn's disease involving the pelvic small bowel loops. There is increasing wall thickening, free fluid, and inflammatory changes. Small abscess measuring 1.5 cm adjacent to the right common iliac bifurcation with adjacent area of phlegmon. There is also a small contained perforation. ASSESSMENT: 1. Acute exacerbation of Crohn's disease with abscess formation and contained perforation 2. History of medical noncompliance PLAN: -Bowel rest. Nothing by mouth -IV antibiotics -GI consulted. Await recommendations -Patient instructed that he needs to be evaluated by a colorectal surgeon at a tertiary care center post discharge Nurse practitioner note has been reviewed by physician. Signing provider agrees with the documented findings, assessment, and plan of care. Past Medical History Past Medical History: GERD/Reflux Additional Past Medical History / Comment(s): crohns, KIDNEY STONES, History of Any Multi-Drug Resistant Organisms: None Reported Past Surgical History: Adenoidectomy, Hernia Repair Additional Past Surgical History / Comment(s): RT INGUIAL HERNIA REPAIR. SX FOR DEVIATED SEPTUM, Past Anesthesia/Blood Transfusion Reactions: No Reported Reaction Past Psychological History: No Psychological Hx Reported Additional Psychological History / Comment(s): PT LIVES WITH HIS AND 2 CHILDREN. 1 DOG. 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 NO OUTSDE SERVICES, NO MED EQUIPMENT. Smoking Status: Current every day smoker Past Alcohol Use History: None Reported Past Drug Use History: None Reported - Past Family History Mother Family Medical History: Thyroid Disorder Additional Family Medical History / Comment(s): MOM AGE 50 FROM COMPLICATIONS OF MS Father Family Medical History: Hypertension Medications and Allergies Home Medications Medication Instructions Recorded Confirmed Type No Known Home Medications 12/15/19 12/15/19 History Allergies Allergy/AdvReac Type Severity Reaction Status Date / Time diphenhydramine AdvReac Unknown Rapid Verified 12/15/19 12:36 [From Benadryl] Heart Rate Surgical - Exam Vital Signs Temp Pulse Resp BP Pulse Ox 98.2 F 117 H 18 114/69 99 12/15/19 11:40 12/15/19 11:40 12/15/19 11:40 12/15/19 11:40 12/15/19 11:40 Results - Labs 12/15/19 12:19 12/15/19 12:19 Abnormal Lab Results - Last 24 Hours (Table) 12/15/19 12/15/19 12/15/19 Range/Units 12:19 12:19 12:51 WBC 15.9 H (3.8-10.6) k/uL Neutrophils # 14.0 H (1.3-7.7) k/uL Lymphocytes # 0.9 L (1.0-4.8) k/uL Sodium 136 L (137-145) mmol/L Glucose 122 H (74-99) mg/dL AST 14 L (17-59) U/L Urine Protein 1+ H (Negative) Urine Blood Moderate H (Negative) Urine RBC 38 H (0-5) /hpf Urine Bacteria Rare H (None) /hpf Urine Mucus Few H (None) /hpf Diabetes panel 12/15/19 Range/Units 12:19 Sodium 136 L (137-145) mmol/L Potassium 4.4 (3.5-5.1) mmol/L Chloride 103 (98-107) mmol/L Carbon Dioxide 27 (22-30) mmol/L BUN 14 (9-20) mg/dL Creatinine 0.91 (0.66-1.25) mg/dL Glucose 122 H (74-99) mg/dL Calcium 9.1 (8.4-10.2) mg/dL AST 14 L (17-59) U/L ALT 11 (4-49) U/L Alkaline Phosphatase 83 (38-126) U/L Total Protein 7.0 (6.3-8.2) g/dL Albumin 3.6 (3.5-5.0) g/dL Calcium panel 12/15/19 Range/Units 12:19 Calcium 9.1 (8.4-10.2) mg/dL Albumin 3.6 (3.5-5.0) g/dL Pituitary panel 12/15/19 Range/Units 12:19 Sodium 136 L (137-145) mmol/L Potassium 4.4 (3.5-5.1) mmol/L Chloride 103 (98-107) mmol/L Carbon Dioxide 27 (22-30) mmol/L BUN 14 (9-20) mg/dL Creatinine 0.91 (0.66-1.25) mg/dL Glucose 122 H (74-99) mg/dL Calcium 9.1 (8.4-10.2) mg/dL Adrenal panel 12/15/19 Range/Units 12:19 Sodium 136 L (137-145) mmol/L Potassium 4.4 (3.5-5.1) mmol/L Chloride 103 (98-107) mmol/L Carbon Dioxide 27 (22-30) mmol/L BUN 14 (9-20) mg/dL Creatinine 0.91 (0.66-1.25) mg/dL Glucose 122 H (74-99) mg/dL Calcium 9.1 (8.4-10.2) mg/dL Total Bilirubin 1.1 (0.2-1.3) mg/dL AST 14 L (17-59) U/L ALT 11 (4-49) U/L Alkaline Phosphatase 83 (38-126) U/L Total Protein 7.0 (6.3-8.2) g/dL Albumin 3.6 (3.5-5.0) g/dL <Lorrie Vasques - Last Filed: 12/15/19 18:20> History of Present Illness History of present illness: Patient seen and evaluated with above. No peritonitis on exam. Patient reports improvement of abdominal pain especially of the right lower quadrant and pelvis. "I want oxycodone every hour." Patient reports long standing history of Crohn's over 10+ years including infection for over 3+ years. He does not want surgery. He is not being medically managed as he is non-compliant with care. Additionally, patient has pre-existing history of leaving against medically advise. Surgery with colo-rectal specialist advised as he has complicated Crohn's with abscess long standing. Recommend GI consultation. Patient advised to stay in the hospital for continuation of IV antibiotics. Toradol for pain described. Patient insisted on narcotics for which is deferred to admitting physician. Surgical - Exam Vital Signs Temp Pulse Resp BP Pulse Ox 98.2 F 117 H 18 114/69 99 12/15/19 11:40 12/15/19 11:40 12/15/19 11:40 12/15/19 11:40 12/15/19 11:40 Results - Labs 12/15/19 12:19 12/15/19 12:19 Abnormal Lab Results - Last 24 Hours (Table) 12/15/19 12/15/19 12/15/19 Range/Units 12:19 12:19 12:51 WBC 15.9 H (3.8-10.6) k/uL Neutrophils # 14.0 H (1.3-7.7) k/uL Lymphocytes # 0.9 L (1.0-4.8) k/uL Sodium 136 L (137-145) mmol/L Glucose 122 H (74-99) mg/dL AST 14 L (17-59) U/L Urine Protein 1+ H (Negative) Urine Blood Moderate H (Negative) Urine RBC 38 H (0-5) /hpf Urine Bacteria Rare H (None) /hpf Urine Mucus Few H (None) /hpf Diabetes panel 12/15/19 Range/Units 12:19 Sodium 136 L (137-145) mmol/L Potassium 4.4 (3.5-5.1) mmol/L Chloride 103 (98-107) mmol/L Carbon Dioxide 27 (22-30) mmol/L BUN 14 (9-20) mg/dL Creatinine 0.91 (0.66-1.25) mg/dL Glucose 122 H (74-99) mg/dL Calcium 9.1 (8.4-10.2) mg/dL AST 14 L (17-59) U/L ALT 11 (4-49) U/L Alkaline Phosphatase 83 (38-126) U/L Total Protein 7.0 (6.3-8.2) g/dL Albumin 3.6 (3.5-5.0) g/dL Calcium panel 12/15/19 Range/Units 12:19 Calcium 9.1 (8.4-10.2) mg/dL Albumin 3.6 (3.5-5.0) g/dL Pituitary panel 12/15/19 Range/Units 12:19 Sodium 136 L (137-145) mmol/L Potassium 4.4 (3.5-5.1) mmol/L Chloride 103 (98-107) mmol/L Carbon Dioxide 27 (22-30) mmol/L BUN 14 (9-20) mg/dL Creatinine 0.91 (0.66-1.25) mg/dL Glucose 122 H (74-99) mg/dL Calcium 9.1 (8.4-10.2) mg/dL Adrenal panel 12/15/19 Range/Units 12:19 Sodium 136 L (137-145) mmol/L Potassium 4.4 (3.5-5.1) mmol/L Chloride 103 (98-107) mmol/L Carbon Dioxide 27 (22-30) mmol/L BUN 14 (9-20) mg/dL Creatinine 0.91 (0.66-1.25) mg/dL Glucose 122 H (74-99) mg/dL Calcium 9.1 (8.4-10.2) mg/dL Total Bilirubin 1.1 (0.2-1.3) mg/dL AST 14 L (17-59) U/L ALT 11 (4-49) U/L Alkaline Phosphatase 83 (38-126) U/L Total Protein 7.0 (6.3-8.2) g/dL Albumin 3.6 (3.5-5.0) g/dL
[2019-12-15] MEDS ORDERED: KETOROLAC 30 MG/ML 1 ML VIAL IVP SCH (18:00)
[2019-12-15] MEDS ORDERED: PIPERACILLIN-TAZOBACTAM 3.375 GM in SODIUM CHLORIDE 0.9% 100 ML IVPB SCH (22:00)
[2019-12-16] MEDS ORDERED: PANTOPRAZOLE 40 MG/10 ML VIAL IV SCH (09:00)
== END 2019-12-15 17:57 | disposition left against medical advice (07) | DRG 386 ==
LOC: EC 11:39 → 6NMEDSUR 11:57
PROVIDERS: ADMIT Family Medicine; ATTEND Family Medicine
DX: K50.914 Crohn's disease, unspecified, with abscess (principal); R18.8 Other ascites; Z82.49 Family history of ischemic heart disease and other diseases of the circulatory system; Z87.442 Personal history of urinary calculi; Z91.19 Patient's noncompliance with other medical treatment and regimen; F17.210 Nicotine dependence, cigarettes, uncomplicated; Z82.0 Family history of epilepsy and other diseases of the nervous system; Z88.8 Allergy status to other drugs, medicaments and biological substances
CPT/HCPCS: 36415; 74019; 80053; 81001; 83690; 85025; 96361; 96374; 96375; 96376; 99285

== ENCOUNTER 2019-12-19 10:37 | Emergency (ER) | payer OTHER ==
[2019-12-19] MEDS ORDERED: SODIUM CHLORIDE 0.9% 1,000 ML IV STA (10:54)
[2019-12-19] MEDS ORDERED: MORPHINE SULFATE 4 MG/ML SYRINGE IV STA (10:54)
[2019-12-19] MEDS ORDERED: SODIUM CHLORIDE 0.9% 500 ML 500 ML IV STA (10:54)
[2019-12-19] MEDS ORDERED: PIPERACILLIN-TAZOBACTAM 3.375 GM in SODIUM CHLORIDE 0.9% 100 ML IVPB STA (10:55)
[2019-12-19] MEDS ORDERED: NALOXONE 0.4 MG/ML 1 ML VIAL IV PRN (11:16)
[2019-12-19] MEDS ORDERED: MORPHINE SULFATE 4 MG/ML SYRINGE IV PRN (11:16)
[2019-12-19] MEDS ORDERED: ONDANSETRON 4 MG/2 ML VIAL IVP PRN (11:16)
[2019-12-19] MEDS ORDERED: methylPREDNISolone SOD SUCCI 125 MG/2 ML VIAL IV STA (11:26)
--- NOTE | 2019-12-19 11:26 | ED ---
General Adult HPI - General Chief complaint: Abdominal Pain Stated complaint: lower abdominal abscess Time Seen by Provider: 12/19/19 10:50 Source: patient, RN notes reviewed, old records reviewed Mode of arrival: ambulatory Limitations: no limitations - History of Present Illness Initial comments: 39-year-old male presenting with lower abdominal pain and fever at home. Patient has known diagnosis of intra-abdominal abscess which was seen on CT within the past one week. He was admitted for IV antibiotics and surgical consultation. He left AGAINST MEDICAL ADVICE. He is returning today with similar complaints. He had been taking amoxicillin at home. He was previously on IV antibiotics. Stating that the pain in his lower abdomen is the same character and intensity as it was previously. He is eating and drinking well. No vomiting. No upper abdominal pain. No dysuria or hematuria. - Related Data Home Medications Medication Instructions Recorded Confirmed No Known Home Medications 12/15/19 12/15/19 Allergies Allergy/AdvReac Type Severity Reaction Status Date / Time diphenhydramine AdvReac Unknown Rapid Verified 12/19/19 10:48 [From Angeli] Heart Rate Review of Systems ROS Statement: Those systems with pertinent positive or pertinent negative responses have been documented in the HPI. ROS Other: All systems not noted in ROS Statement are negative. Past Medical History Past Medical History: GERD/Reflux Additional Past Medical History / Comment(s): crohns, KIDNEY STONES, abd abcess History of Any Multi-Drug Resistant Organisms: None Reported Past Surgical History: Adenoidectomy, Hernia Repair Additional Past Surgical History / Comment(s): RT INGUIAL HERNIA REPAIR. SX FOR DEVIATED SEPTUM, Past Anesthesia/Blood Transfusion Reactions: No Reported Reaction Past Psychological History: No Psychological Hx Reported Smoking Status: Current every day smoker Past Alcohol Use History: None Reported Past Drug Use History: None Reported - Past Family History Mother Family Medical History: Thyroid Disorder Additional Family Medical History / Comment(s): MOM AGE 50 FROM COMPLICATIONS OF MS Father Family Medical History: Hypertension General Exam Limitations: no limitations General appearance: alert, in no apparent distress Head exam: Present: atraumatic, normocephalic Eye exam: Present: normal appearance, PERRL ENT exam: Present: normal exam Neck exam: Present: normal inspection. Absent: tenderness, meningismus Respiratory exam: Present: normal lung sounds bilaterally. Absent: respiratory distress, wheezes Cardiovascular Exam: Present: regular rate, normal rhythm GI/Abdominal exam: Present: soft, distended, tenderness (Bilateral lower abdominal tenderness palpation). Absent: guarding, rebound Extremities exam: Present: normal inspection, normal capillary refill. Absent: pedal edema Neurological exam: Present: alert, oriented X3, CN II-XII intact. Absent: motor sensory deficit Psychiatric exam: Present: normal affect, normal mood Skin exam: Present: warm, dry, intact. Absent: cyanosis, diaphoretic Course Vital Signs 12/19/19 10:46 Temperature 98.3 F Pulse Rate 95 Respiratory 18 Rate Blood Pressure 123/84 O2 Sat by Pulse 100 Oximetry Medical Decision Making - Medical Decision Making 39-year-old male presenting with complaint of lower abdominal pain and known intra-abdominal abscess. Review the medical record does confirm that the patient had a 1.5 cm abscess with adjacent perforation. He has a history of Crohn's colitis. I discussed case with the primary care physician Dr. Garg who is aware of this patient as he was previously admitted to his service. He will be admitted on IV antibiotics with general surgery on consult. CBC, CMP, lactic acid and blood cultures have been obtained these results are pending. Patient has mild tenderness, he has a nonsurgical abdomen on exam. We will await surgery recommendations regarding further imaging at this time. Patient admitted to internal medicine with general surgery on consult. Disposition Clinical Impression: Crohns disease, Intra-abdominal abscess Disposition: ADMITTED IP TO THIS [facility] Condition: Stable Is patient prescribed a controlled substance at d/c from ED?: No Referrals: Layton Garg MD [Primary Care Provider] - 1-2 days Decision to Admit Reason: Admit from EC Decision Date: 12/19/19 Decision Time: 11:26
[2019-12-19 12:13] LABS: Basophils % (A) 0 %; Eosinophils # (A) 0.2 k/uL (0-0.7); Eosinophils % (A) 1 %; HCT 41.1 % (39.0-53.0); HGB 13.4 gm/dL (13.0-17.5); Lymphocytes # (A) 0.9 k/uL (1.0-4.8); Lymphocytes % (A) 8 %; MCH 29.7 pg (25.0-35.0); MCHC 32.6 g/dL (31.0-37.0); MCV 91.3 fL (80.0-100.0); Mean Platelet Volume 7.5; Monocytes # (A) 0.5 k/uL (0-1.0); Monocytes % (A) 5 %; Neutrophils # (A) 8.9 k/uL (1.3-7.7); Neutrophils % (A) 84 %; Platelet Count 543 k/uL (150-450); RDW 12.9 % (11.5-15.5); WBC 10.5 k/uL (3.8-10.6)
[2019-12-19 12:29] LABS: ALT 15 U/L (4-49); AST 16 U/L (17-59); African American GFR (CKD) >90 (>60 ml/min/1.73 sqM); Albumin 3.8 g/dL (3.5-5.0); Alkaline Phosphatase 198 U/L (38-126); Anion Gap 11 mmol/L; Blood Urea Nitrogen 9 mg/dL (9-20); Calcium 9.8 mg/dL (8.4-10.2); Carbon Dioxide 29 mmol/L (22-30); Chloride 103 mmol/L (98-107); Glucose 117 mg/dL (74-99); Non-African American GFR(CKD) >90 (>60 ml/min/1.73 sqM); Potassium 4.6 mmol/L (3.5-5.1); Sodium 143 mmol/L (137-145); Total Bilirubin 0.6 mg/dL (0.2-1.3); Total Protein 7.6 g/dL (6.3-8.2)
[2019-12-19 13:11] VITALS: BP 119/65; PULSE 80; RESP 19; TEMP 98.1
[2019-12-19] MEDS ORDERED: PIPERACILLIN-TAZOBACTAM 3.375 GM in SODIUM CHLORIDE 0.9% 100 ML IVPB SCH (20:00)
--- NOTE | 2019-12-20 15:02 | HP ---
HISTORY AND PHYSICAL DATE OF ADMISSION: 12/19/2019. CHIEF COMPLAINT: Abdominal pain and Crohn's disease. HISTORY OF PRESENT ILLNESS: This is another admission for this 39-year-old white male. He was in the hospital recently for acute abdominal pain and it was determined at that time he had an intraabdominal abscess related to his Crohn's disease. He was in the hospital for a brief period of time and then signed himself out. Seen in the office after that and indicated that he was afraid to be in the hospital with the coronavirus epidemic. He is continued to have significant abdominal pain and he came back to the emergency room on the and was admitted. Review of systems, past medical history, and family history were not obtained at that time. Physical exam was done in the emergency room, but the patient left the hospital before I could perform his physical. He was admitted to the hospital with diagnoses. 1. Acute abdominal pain. 2. Intraabdominal abscess. 3. Crohn disease. PLAN: 1. Bed rest. 2. IV fluids. 3. IV antibiotics. 4. Consult with GI and Surgery. MMODL / IJN: [id number] /
--- NOTE | 2019-12-20 19:23 | HP ---
HISTORY AND PHYSICAL DATE OF ADMISSION: 12/19/2019 CHIEF COMPLAINT: Acute abdominal pain and intraabdominal abscess. HISTORY OF PRESENT ILLNESS AND PHYSICAL EXAMINATION: Details of this man's history and physical can be found in the initial workup. LABORATORY STUDIES: While he was in the hospital, he had laboratory studies, details of which can be found in the laboratory section of his chart. COURSE IN HOSPITAL: After admission, he was to be sent from the emergency room to the floor. He signed himself out AGAINST MEDICAL ADVICE again. FINAL DIAGNOSES: 1. Acute abdominal pain. 2. Intraabdominal abscess. 3. Crohn's disease. OPERATIONS: None. CONSULTATION: He signed out AMA. MMMARIOLA / FEDERICAN: [id number] /
== END 2019-12-19 13:10 | disposition left against medical advice (07) ==
LOC: EC 10:37 → 5NMEDONC 11:16 → UNDOADMIN 11:16 → EC 13:10
DX: K50.914 Crohn's disease, unspecified, with abscess (principal); K65.1 Peritoneal abscess; F17.200 Nicotine dependence, unspecified, uncomplicated; Z88.8 Allergy status to other drugs, medicaments and biological substances; Z53.29 Procedure and treatment not carried out because of patient's decision for other reasons
CPT/HCPCS: 99284 ×2; 96365 ×2; 96375 ×3; 96361 ×2; 36415; 80053; 83605; 85025; 87040; J2543; J2270; J2930

== ENCOUNTER 2020-08-02 19:03 | Emergency (ER) | payer OTHER ==
[2020-08-02 19:08] VITALS: BP 123/72; PULSE 77; RESP 18; TEMP 98.2
[2020-08-02] MEDS ORDERED: HYDROmorphone 0.5 MG/0.5 ML SYRINGE IVP STA (19:34)
[2020-08-02] MEDS ORDERED: SODIUM CHLORIDE 0.9% 500 ML 500 ML IV STA (19:34)
--- NOTE | 2020-08-02 19:37 | ED ---
General Adult HPI - General Chief complaint: Abdominal Pain Stated complaint: abd pain Time Seen by Provider: 08/02/20 19:05 Source: patient, RN notes reviewed, old records reviewed Mode of arrival: ambulatory Limitations: no limitations - History of Present Illness Initial comments: This a 40-year-old male who presents to the emergency department with a history of Crohn's disease. Patient comes in complaining of pain in the left upper quadrant but states the pain is really in the right lower quadrant. Patient states he has typically had abscesses in the right lower quadrant but always seems to get some radiation of pain to the left upper quadrant. Patient denies any nausea vomiting diarrhea. Patient denies any fever chills. Patient denies any chest pain or difficulty breathing. Patient states he has had abscesses multiple times in the past. Patient states this feels similar to previous events. - Related Data Previous Rx's Medication Instructions Recorded Amoxicillin/Potassium Clav 1 each PO Q12HR #20 tab 08/02/20 [Augmentin 875-125 Tablet] predniSONE [Deltasone] 40 mg PO DAILY #8 tab 08/02/20 Allergies Allergy/AdvReac Type Severity Reaction Status Date / Time diphenhydramine AdvReac Unknown Rapid Verified 08/02/20 19:47 [From Benadryl] Heart Rate Review of Systems ROS Statement: Those systems with pertinent positive or pertinent negative responses have been documented in the HPI. ROS Other: All systems not noted in ROS Statement are negative. Past Medical History Past Medical History: GERD/Reflux Additional Past Medical History / Comment(s): crohns, KIDNEY STONES, abd abcess History of Any Multi-Drug Resistant Organisms: None Reported Past Surgical History: Adenoidectomy, Hernia Repair Additional Past Surgical History / Comment(s): RT INGUIAL HERNIA REPAIR. SX FOR DEVIATED SEPTUM, Past Anesthesia/Blood Transfusion Reactions: No Reported Reaction Past Psychological History: No Psychological Hx Reported Past Alcohol Use History: None Reported Past Drug Use History: None Reported - Past Family History Mother Family Medical History: Thyroid Disorder Additional Family Medical History / Comment(s): MOM AGE 50 FROM COMPLICATIONS OF MS Father Family Medical History: Hypertension General Exam - General Exam Comments Initial Comments: GENERAL: Patient is well-developed and well-nourished. Patient is nontoxic and well- hydrated and is moderate distress. ENT: Neck is soft and supple. No significant lymphadenopathy is noted. Oropharynx is clear. Moist mucous membranes. Neck has full range of motion without eliciting any pain. EYES: The sclera were anicteric and conjunctiva were pink and moist. Extraocular movements were intact and pupils were equal round and reactive to light. Eyelids were unremarkable. PULMONARY: Unlabored respirations. Good breath sounds bilaterally. No audible rales rhonchi or wheezing was noted. CARDIOVASCULAR: There is a regular rate and rhythm without any murmurs gallops or rubs. ABDOMEN: Soft and nontender with normal bowel sounds. SKIN: Skin is clear with no lesions or rashes and otherwise unremarkable. NEUROLOGIC: Patient is alert and oriented x3. Cranial nerves II through XII are grossly intact. Motor and sensory are also intact. Normal speech, volume and content. Symmetrical smile. MUSCULOSKELETAL: Normal extremities with adequate strength and full range of motion. No lower extremity swelling or edema. No calf tenderness. LYMPHATICS: No significant lymphadenopathy is noted PSYCHIATRIC: Normal psychiatric evaluation. Limitations: no limitations Course Vital Signs 08/02/20 19:05 Temperature 98.2 F Pulse Rate 77 Respiratory 18 Rate Blood Pressure 123/72 O2 Sat by Pulse 99 Oximetry Medical Decision Making - Medical Decision Making Patient's computed tomography scan shows some inflammation in the left lower quadrant there also appears to be some stenosis of the colon. I suggested the patient stay follow-up with a GI doc and Hospital patient refused stating he wanted to follow-up with his primary medical care doctor tomorrow. - Lab Data Result diagrams: 08/02/20 19:34 08/02/20 19:34 Lab Results 08/02/20 08/02/20 08/02/20 Range/Units 19:34 19:34 19:34 WBC 9.4 (3.8-10.6) k/uL RBC 4.60 (4.30-5.90) m/uL Hgb 13.6 (13.0-17.5) gm/dL Hct 42.4 (39.0-53.0) % MCV 92.2 (80.0-100.0) fL MCH 29.6 (25.0-35.0) pg MCHC 32.1 (31.0-37.0) g/dL RDW 12.8 (11.5-15.5) % Plt Count 378 (150-450) k/uL MPV 7.1 Neutrophils % 62 % Lymphocytes % 28 % Monocytes % 4 % Eosinophils % 4 % Basophils % 1 % Neutrophils # 5.8 (1.3-7.7) k/uL Lymphocytes # 2.6 (1.0-4.8) k/uL Monocytes # 0.4 (0-1.0) k/uL Eosinophils # 0.4 (0-0.7) k/uL Basophils # 0.1 (0-0.2) k/uL Sodium 138 (137-145) mmol/L Potassium 4.5 (3.5-5.1) mmol/L Chloride 104 (98-107) mmol/L Carbon Dioxide 28 (22-30) mmol/L Anion Gap 6 mmol/L BUN 18 (9-20) mg/dL Creatinine 0.96 (0.66-1.25) mg/dL Est GFR (CKD-EPI)AfAm >90 (>60 ml/min/1.73 sqM) Est GFR (CKD-EPI)NonAf >90 (>60 ml/min/1.73 sqM) Glucose 109 H (74-99) mg/dL Plasma Lactic Acid Narendra (0.7-2.0) mmol/L Calcium 9.0 (8.4-10.2) mg/dL Total Bilirubin 0.3 (0.2-1.3) mg/dL AST 23 (17-59) U/L ALT 14 (4-49) U/L Alkaline Phosphatase 86 (38-126) U/L Total Protein 7.2 (6.3-8.2) g/dL Albumin 3.9 (3.5-5.0) g/dL Amylase 76 (30-110) U/L Lipase 146 (23-300) U/L Urine Color Yellow Urine Appearance Clear (Clear) Urine pH 7.0 (5.0-8.0) Ur Specific Leslie 1.019 (1.001-1.035) Urine Protein Negative (Negative) Urine Glucose (UA) Negative (Negative) Urine Ketones Negative (Negative) Urine Blood Small H (Negative) Urine Nitrite Negative (Negative) Urine Bilirubin Negative (Negative) Urine Urobilinogen <2.0 (<2.0) mg/dL Ur Leukocyte Esterase Negative (Negative) Urine RBC 7 H (0-5) /hpf Urine WBC <1 (0-5) /hpf Urine Mucus Rare H (None) /hpf 11/30/20 Range/Units 19:34 WBC (3.8-10.6) k/uL RBC (4.30-5.90) m/uL Hgb (13.0-17.5) gm/dL Hct (39.0-53.0) % MCV (80.0-100.0) fL MCH (25.0-35.0) pg MCHC (31.0-37.0) g/dL RDW (11.5-15.5) % Plt Count (150-450) k/uL MPV Neutrophils % % Lymphocytes % % Monocytes % % Eosinophils % % Basophils % % Neutrophils # (1.3-7.7) k/uL Lymphocytes # (1.0-4.8) k/uL Monocytes # (0-1.0) k/uL Eosinophils # (0-0.7) k/uL Basophils # (0-0.2) k/uL Sodium (137-145) mmol/L Potassium (3.5-5.1) mmol/L Chloride (98-107) mmol/L Carbon Dioxide (22-30) mmol/L Anion Gap mmol/L BUN (9-20) mg/dL Creatinine (0.66-1.25) mg/dL Est GFR (CKD-EPI)AfAm (>60 ml/min/1.73 sqM) Est GFR (CKD-EPI)NonAf (>60 ml/min/1.73 sqM) Glucose (74-99) mg/dL Plasma Lactic Acid Narendra 1.0 (0.7-2.0) mmol/L Calcium (8.4-10.2) mg/dL Total Bilirubin (0.2-1.3) mg/dL AST (17-59) U/L ALT (4-49) U/L Alkaline Phosphatase (38-126) U/L Total Protein (6.3-8.2) g/dL Albumin (3.5-5.0) g/dL Amylase (30-110) U/L Lipase (23-300) U/L Urine Color Urine Appearance (Clear) Urine pH (5.0-8.0) Ur Specific Leslie (1.001-1.035) Urine Protein (Negative) Urine Glucose (UA) (Negative) Urine Ketones (Negative) Urine Blood (Negative) Urine Nitrite (Negative) Urine Bilirubin (Negative) Urine Urobilinogen (<2.0) mg/dL Ur Leukocyte Esterase (Negative) Urine RBC (0-5) /hpf Urine WBC (0-5) /hpf Urine Mucus (None) /hpf Disposition Clinical Impression: Exacerbation of Crohn's disease Disposition: HOME SELF-CARE Prescriptions: Amoxicillin/Potassium Clav [Augmentin 875-125 Tablet] 1 each PO Q12HR #20 tab predniSONE [Deltasone] 40 mg PO DAILY #8 tab Is patient prescribed a controlled substance at d/c from ED?: No Referrals: Layton Garg MD [Primary Care Provider] - 1-2 days Time of Disposition: 21:00
[2020-08-02 19:53] LABS: Basophils # (A) 0.1 k/uL (0-0.2); Basophils % (A) 1 %; Eosinophils # (A) 0.4 k/uL (0-0.7); Eosinophils % (A) 4 %; HCT 42.4 % (39.0-53.0); HGB 13.6 gm/dL (13.0-17.5); Lymphocytes # (A) 2.6 k/uL (1.0-4.8); Lymphocytes % (A) 28 %; MCH 29.6 pg (25.0-35.0); MCHC 32.1 g/dL (31.0-37.0); MCV 92.2 fL (80.0-100.0); Mean Platelet Volume 7.1; Monocytes # (A) 0.4 k/uL (0-1.0); Monocytes % (A) 4 %; Neutrophils # (A) 5.8 k/uL (1.3-7.7); Neutrophils % (A) 62 %; Platelet Count 378 k/uL (150-450); RDW 12.8 % (11.5-15.5); WBC 9.4 k/uL (3.8-10.6)
[2020-08-02 20:00] LABS: Appearance,Urine Clear (Clear); Bilirubin,Urine Negative (Negative); Blood,Urine Small (Negative); Color,Urine Yellow; Glucose,Urine (UA) Negative (Negative); Ketones,Urine Negative (Negative); Leukocyte Esterase,Urine Negative (Negative); Mucus,Urine Rare /hpf; Nitrite,Urine Negative (Negative); Protein,Urine Negative (Negative); RBC,Urine 7 /hpf (0-5); Specific Gravity,Urine 1.019 (1.001-1.035); Urobilinogen,Urine <2.0 mg/dL (<2.0); WBC,Urine <1 /hpf (0-5)
[2020-08-02 20:04] LABS: ALT 14 U/L (4-49); AST 23 U/L (17-59); African American GFR (CKD) >90 (>60 ml/min/1.73 sqM); Albumin 3.9 g/dL (3.5-5.0); Alkaline Phosphatase 86 U/L (38-126); Amylase 76 U/L (30-110); Anion Gap 6 mmol/L; Blood Urea Nitrogen 18 mg/dL (9-20); Carbon Dioxide 28 mmol/L (22-30); Chloride 104 mmol/L (98-107); Glucose 109 mg/dL (74-99); Lipase 146 U/L (23-300); Non-African American GFR(CKD) >90 (>60 ml/min/1.73 sqM); Potassium 4.5 mmol/L (3.5-5.1); Sodium 138 mmol/L (137-145); Total Bilirubin 0.3 mg/dL (0.2-1.3); Total Protein 7.2 g/dL (6.3-8.2)
--- NOTE | 2020-08-02 20:48 | CT ---
EXAMINATION TYPE: CT abdomen pelvis w con DATE OF EXAM: 08/02/2020 COMPARISON: CT 12/14/2019 HISTORY: abdominal pain, hx of Crohns CT DLP: 627.8 mGycm Automated exposure control for dose reduction was used. TECHNIQUE: Helical acquisition of images from the lung bases through the pelvis have been completed. CONTRAST: Performed without Oral Contrast and with IV Contrast, patient injected with 100 mL of Isovue 300. FINDINGS: LUNG BASES: No significant abnormality is appreciated. AORTA: No significant abnormality is appreciated. LIVER/GB: No significant abnormality is appreciated. PANCREAS: No significant abnormality is seen. SPLEEN: No significant abnormality is seen. ADRENALS: No significant abnormality is seen. KIDNEYS: No significant abnormality is seen. REPRODUCTIVE ORGANS: No significant abnormality is seen BOWEL: Extensive abnormal thickening of bowel loops again noted including the region of the previous extensive inflammatory change within the pelvis, mesenteric fat shows increased attenuation at this l evel, there is an air-fluid level which is present, focal stenosis of the bowel may be present due to adhesions or inflammatory change, this is likely chemical sales representative of bowel rather than abscess. Fluid- filled loops of small bowel are present. FREE AIR: No Free Air visible. ASCITES: There is some free fluid present within the pelvis. Multiple small bowel loops also show wa ll thickening. PELVIC ADENOPATHY: None visualized. RETROPERITONEAL ADENOPATHY: No Retroperitoneal Adenopathy visible. URINARY BLADDER: No significant abnormality is seen. OSSEOUS STRUCTURES: No significant abnormality is seen. IMPRESSION: FINDINGS CONSISTENT WITH PATIENT'S HISTORY OF CROHN'S DISEASE. THERE MAY BE A STENOTIC PORTION OF BOW EL IN THE PELVIS, LIKELY DISTAL ILEUM WITH ASSOCIATED AIR-FLUID LEVEL. CONSIDER FOLLOW-UP.
[2020-08-02] MEDS ORDERED: methylPREDNISolone SOD SUCCI 125 MG/2 ML VIAL IV STA (20:57)
[2020-08-02] MEDS ORDERED: HYDROmorphone 1 MG/ML 1 ML SYRINGE IM STA (20:57)
[2020-08-02] MEDS ORDERED: ACET/COD 300 MG/30 MG STARTER PACK 6 TAB BTL PO STA (21:00)
== END 2020-08-02 21:31 | disposition home or self-care (01) ==
LOC: EC 19:03
DX: K50.90 Crohn's disease, unspecified, without complications (principal); Z88.8 Allergy status to other drugs, medicaments and biological substances
CPT/HCPCS: 36415; 80053; 82150; 83605; 83690; 85025; 81001; 74177; 99285; 96374; 96375; 96372; 96361 ×2; J2930; J1170 ×2; Q9967

== ENCOUNTER 2020-12-29 19:09 | Inpatient (IN) | payer MEDICARE, OTHER ==
[2020-12-29] MEDS ORDERED: SODIUM CHLORIDE 0.9% 1,000 ML IV ONE (19:33)
[2020-12-29] MEDS ORDERED: HYDROmorphone 0.5 MG/0.5 ML SYRINGE IVP STA (19:33)
[2020-12-29] MEDS ORDERED: ONDANSETRON 4 MG/2 ML VIAL IVP STA (19:33)
[2020-12-29] MEDS: SODIUM CHLORIDE 0.9% 1,000 ML IV SCH (19:44)
[2020-12-29 19:46] LABS: Appearance,Urine Clear (Clear); Bilirubin,Urine Negative (Negative); Blood,Urine Small (Negative); Color,Urine Yellow; Glucose,Urine (UA) Negative (Negative); Ketones,Urine Negative (Negative); Leukocyte Esterase,Urine Negative (Negative); Mucus,Urine Rare /hpf; Nitrite,Urine Negative (Negative); PH, Urine 7.5 (5.0-8.0); Protein,Urine Negative (Negative); RBC,Urine 14 /hpf (0-5); Specific Gravity,Urine 1.022 (1.001-1.035); Urobilinogen,Urine <2.0 mg/dL (<2.0); WBC,Urine 1 /hpf (0-5)
[2020-12-29 19:47] LABS: Basophils # (A) 0.1 k/uL (0-0.2); Basophils % (A) 1 %; Eosinophils # (A) 0.2 k/uL (0-0.7); Eosinophils % (A) 2 %; HCT 44.8 % (39.0-53.0); HGB 14.5 gm/dL (13.0-17.5); Lymphocytes # (A) 2.2 k/uL (1.0-4.8); Lymphocytes % (A) 23 %; MCH 29.9 pg (25.0-35.0); MCHC 32.4 g/dL (31.0-37.0); MCV 92.2 fL (80.0-100.0); Mean Platelet Volume 7.2; Monocytes # (A) 0.5 k/uL (0-1.0); Monocytes % (A) 6 %; Neutrophils # (A) 6.6 k/uL (1.3-7.7); Neutrophils % (A) 67 %; Platelet Count 284 k/uL (150-450); RBC 4.86 m/uL (4.30-5.90); RDW 13.6 % (11.5-15.5); WBC 9.7 k/uL (3.8-10.6)
[2020-12-29 19:53] LABS: INR 0.9 (<1.2); Partial Thromboplastin Time 26.3 sec (22.0-30.0); Prothrombin Time 10.1 sec (9.0-12.0)
[2020-12-29 19:54] LABS: ALT 36 U/L (4-49); AST 30 U/L (17-59); African American GFR (CKD) >90 (>60 ml/min/1.73 sqM); Albumin 4.5 g/dL (3.5-5.0); Alkaline Phosphatase 102 U/L (38-126); Amylase 115 U/L (30-110); Anion Gap 9 mmol/L; Blood Urea Nitrogen 15 mg/dL (9-20); Calcium 9.6 mg/dL (8.4-10.2); Carbon Dioxide 25 mmol/L (22-30); Chloride 107 mmol/L (98-107); Glucose 102 mg/dL (74-99); Lipase 207 U/L (23-300); Non-African American GFR(CKD) >90 (>60 ml/min/1.73 sqM); Potassium 4.1 mmol/L (3.5-5.1); Sodium 141 mmol/L (137-145); Total Bilirubin 0.3 mg/dL (0.2-1.3); Total Protein 7.9 g/dL (6.3-8.2)
--- NOTE | 2020-12-29 20:20 | CT ---
EXAMINATION TYPE: CT abdomen pelvis w con DATE OF EXAM: 12/29/2020 COMPARISON: 08/02/2020 HISTORY: abdominal pain CT DLP: 667.2 mGycm Automated exposure control for dose reduction was used. CONTRAST: Performed with IV Contrast, patient injected with 100 mL of Isovue 300. Images obtained from the diaphragm to the floor the pelvis with IV contrast. Lung bases are clear of consolidation. There is no pleural effusion. Heart size is normal. There is n o pericardial effusion. Liver spleen stomach pancreas gallbladder appear intact. Bile ducts are not d ilated. There is no adrenal mass. Kidneys show satisfactory contrast opacification. There is no hydronephrosi s. There is 1 cm cortical cyst posterior left kidney. There is no retroperitoneal adenopathy. Bladder distends smoothly. There is no inguinal hernia. There is no free fluid in the pelvis. Delayed images show normal renal excretion. There is no ascites or free air. Appendix not seen. No sign of thickened appendix. There is irregular wall thickening of a long segment of distal ileum. There is some mild surrounding fat stranding and mildly dilated proximal segment that measures 3.6 cm in diameter. The ileum at the ileocecal valve appears fairly normal. Large bowel pattern is fairly normal. The lumbar vertebra have normal alignment. There is slight depression of the superior endplate of L1 vertebra can percent. The bony pelvis is intact. Hip joints are intact. IMPRESSION: Wall thickening of a segment of distal ileum with fat stranding and proximal dilation is suggestive o f inflammatory bowel disease and partial obstruction. This appears similar to old exam. The proximal loop appears less dilated than old exam.
[2020-12-29] MEDS ORDERED: PIPERACILLIN-TAZOBACTAM 3.375 GM in SODIUM CHLORIDE 0.9% 100 ML IVPB STA (20:24)
[2020-12-29] MEDS ORDERED: methylPREDNISolone SOD SUCCI 125 MG/2 ML VIAL IV STA (20:25)
[2020-12-29] MEDS ORDERED: HYDROmorphone 1 MG/ML 1 ML SYRINGE IVP STA (20:30)
[2020-12-29] MEDS ORDERED: LORazepam 2 MG/ML INJ IV STA (20:30)
[2020-12-29] MEDS ORDERED: NICOTINE 14MG/24HR PATCH TRANSDERM STA (21:05)
--- NOTE | 2020-12-29 21:13 | ED ---
Abdominal Pain HPI - General Chief Complaint: Abdominal Pain Stated Complaint: abd pain Time Seen by Provider: 12/29/20 19:25 Source: patient, police Mode of arrival: ambulatory Limitations: no limitations - History of Present Illness Initial Comments: 40-year-old male history of Crohn's disease previous perforations and obstructions present to the ER today for chief complaint of 3 days of right lower quadrant abdominal pain. Patient states he has had right lower to mid abdominal pain he states he feels bloated. He states it feels like when he's kim d Crohn's flares with complications in the past. He states at times the pain radiates towards the upper abdomen. Patient denies any fevers he admits to nausea severe pain that he has had some constipation. Patient denies any chest pain shortness of breath, or bloody stools. Patient denies additional complaints/concerns. - Related Data Home Medications Medication Instructions Recorded Confirmed No Known Home Medications 12/29/20 12/29/20 Allergies Allergy/AdvReac Type Severity Reaction Status Date / Time diphenhydramine AdvReac Unknown Rapid Verified 12/29/20 20:49 [From Benadryl] Heart Rate Review of Systems ROS Statement: Those systems with pertinent positive or pertinent negative responses have been documented in the HPI. ROS Other: All systems not noted in ROS Statement are negative. Past Medical History Past Medical History: GERD/Reflux Additional Past Medical History / Comment(s): crohns, KIDNEY STONES, abd abcess History of Any Multi-Drug Resistant Organisms: None Reported Past Surgical History: Adenoidectomy, Hernia Repair Additional Past Surgical History / Comment(s): RT INGUIAL HERNIA REPAIR. SX FOR DEVIATED SEPTUM, Past Anesthesia/Blood Transfusion Reactions: No Reported Reaction Past Psychological History: No Psychological Hx Reported Smoking Status: Current every day smoker Past Alcohol Use History: None Reported Past Drug Use History: None Reported - Past Family History Mother Family Medical History: Thyroid Disorder Additional Family Medical History / Comment(s): MOM AGE 50 FROM COMPLICATIONS OF MS Father Family Medical History: Hypertension General Exam - General Exam Comments Initial Comments: General: The patient is awake and alert, in no distress, and does not appear acutely ill. Eye: Pupils are equal, round and reactive to light, extra-ocular movements are intact. No nystagmus. There is normal conjunctiva bilaterally. No signs of icterus. Ears, nose, mouth and throat: There are moist mucous membranes and no oral lesions. Neck: The neck is supple, there is no tenderness or JVD. Cardiovascular: There is a regular rate and rhythm. No murmur, rub or gallop is appreciated. Respiratory: Lungs are clear to auscultation, respirations are non-labored, breath sounds are equal. No wheezes, stridor, rales, or rhonchi. Gastrointestinal: Soft, non-distended, abdomen is tender to palpation of the RLQ, abdomen is without masses or organomegaly noted. There is no rebound or guarding present. Musculoskeletal: Normal ROM, no tenderness. Strength 5/5. Sensation intact. Radial and DP pulses equal bilaterally 2+. Neurological: A&O x 3. CN II-XII intact grossly, There are no obvious motor or sensory deficits. Coordination appears grossly intact. Speech is normal. Skin: Skin is warm and dry and no rashes or lesions are noted. Psychiatric: Cooperative, appropriate mood & affect, normal judgment. Limitations: no limitations Course Vital Signs 12/29/20 12/29/20 19:11 20:48 Temperature 98.1 F Pulse Rate 70 84 Respiratory 17 20 Rate Blood Pressure 171/106 145/103 O2 Sat by Pulse 98 100 Oximetry Medical Decision Making - Medical Decision Making CT partial obstruction with an enteritis no obvious perforation. Patient was placed on Zosyn he was given symptomatic treatment will be admitted for GI and surgical consultation. Patient was accepted by Bonita COHN--for [facility] group. Dr Nguyen agreeable to care plan. - Lab Data Result diagrams: 12/29/20 19:34 12/29/20 19:34 Lab Results 12/29/20 12/29/20 12/29/20 Range/Units 19:34 19:34 19:34 WBC 9.7 (3.8-10.6) k/uL RBC 4.86 (4.30-5.90) m/uL Hgb 14.5 (13.0-17.5) gm/dL Hct 44.8 (39.0-53.0) % MCV 92.2 (80.0-100.0) fL MCH 29.9 (25.0-35.0) pg MCHC 32.4 (31.0-37.0) g/dL RDW 13.6 (11.5-15.5) % Plt Count 284 (150-450) k/uL MPV 7.2 Neutrophils % 67 % Lymphocytes % 23 % Monocytes % 6 % Eosinophils % 2 % Basophils % 1 % Neutrophils # 6.6 (1.3-7.7) k/uL Lymphocytes # 2.2 (1.0-4.8) k/uL Monocytes # 0.5 (0-1.0) k/uL Eosinophils # 0.2 (0-0.7) k/uL Basophils # 0.1 (0-0.2) k/uL PT 10.1 (9.0-12.0) sec INR 0.9 (<1.2) APTT 26.3 (22.0-30.0) sec Sodium 141 (137-145) mmol/L Potassium 4.1 (3.5-5.1) mmol/L Chloride 107 (98-107) mmol/L Carbon Dioxide 25 (22-30) mmol/L Anion Gap 9 mmol/L BUN 15 (9-20) mg/dL Creatinine 0.80 (0.66-1.25) mg/dL Est GFR (CKD-EPI)AfAm >90 (>60 ml/min/1.73 sqM) Est GFR (CKD-EPI)NonAf >90 (>60 ml/min/1.73 sqM) Glucose 102 H (74-99) mg/dL Plasma Lactic Acid Narendra (0.7-2.0) mmol/L Calcium 9.6 (8.4-10.2) mg/dL Total Bilirubin 0.3 (0.2-1.3) mg/dL AST 30 (17-59) U/L ALT 36 (4-49) U/L Alkaline Phosphatase 102 (38-126) U/L Total Protein 7.9 (6.3-8.2) g/dL Albumin 4.5 (3.5-5.0) g/dL Amylase 115 H (30-110) U/L Lipase 207 (23-300) U/L Urine Color Urine Appearance (Clear) Urine pH (5.0-8.0) Ur Specific [place] (1.001-1.035) Urine Protein (Negative) Urine Glucose (UA) (Negative) Urine Ketones (Negative) Urine Blood (Negative) Urine Nitrite (Negative) Urine Bilirubin (Negative) Urine Urobilinogen (<2.0) mg/dL Ur Leukocyte Esterase (Negative) Urine RBC (0-5) /hpf Urine WBC (0-5) /hpf Urine Mucus (None) /hpf 12/29/20 12/29/20 Range/Units 19:34 19:41 WBC (3.8-10.6) k/uL RBC (4.30-5.90) m/uL Hgb (13.0-17.5) gm/dL Hct (39.0-53.0) % MCV (80.0-100.0) fL MCH (25.0-35.0) pg MCHC (31.0-37.0) g/dL RDW (11.5-15.5) % Plt Count (150-450) k/uL MPV Neutrophils % % Lymphocytes % % Monocytes % % Eosinophils % % Basophils % % Neutrophils # (1.3-7.7) k/uL Lymphocytes # (1.0-4.8) k/uL Monocytes # (0-1.0) k/uL Eosinophils # (0-0.7) k/uL Basophils # (0-0.2) k/uL PT (9.0-12.0) sec INR (<1.2) APTT (22.0-30.0) sec Sodium (137-145) mmol/L Potassium (3.5-5.1) mmol/L Chloride (98-107) mmol/L Carbon Dioxide (22-30) mmol/L Anion Gap mmol/L BUN (9-20) mg/dL Creatinine (0.66-1.25) mg/dL Est GFR (CKD-EPI)AfAm (>60 ml/min/1.73 sqM) Est GFR (CKD-EPI)NonAf (>60 ml/min/1.73 sqM) Glucose (74-99) mg/dL Plasma Lactic Acid Narendra 1.4 (0.7-2.0) mmol/L Calcium (8.4-10.2) mg/dL Total Bilirubin (0.2-1.3) mg/dL AST (17-59) U/L ALT (4-49) U/L Alkaline Phosphatase (38-126) U/L Total Protein (6.3-8.2) g/dL Albumin (3.5-5.0) g/dL Amylase (30-110) U/L Lipase (23-300) U/L Urine Color Yellow Urine Appearance Clear (Clear) Urine pH 7.5 (5.0-8.0) Ur Specific [place] 1.022 (1.001-1.035) Urine Protein Negative (Negative) Urine Glucose (UA) Negative (Negative) Urine Ketones Negative (Negative) Urine Blood Small H (Negative) Urine Nitrite Negative (Negative) Urine Bilirubin Negative (Negative) Urine Urobilinogen <2.0 (<2.0) mg/dL Ur Leukocyte Esterase Negative (Negative) Urine RBC 14 H (0-5) /hpf Urine WBC 1 (0-5) /hpf Urine Mucus Rare H (None) /hpf Disposition Clinical Impression: Abdominal pain, Partial bowel obstruction, Enteritis Disposition: ADMITTED IP TO THIS [facility] Condition: Stable Is patient prescribed a controlled substance at d/c from ED?: No Referrals: Theresa Engel DO [Primary Care Provider] - 1-2 days Time of Disposition: 21:16 Decision to Admit Reason: Admit from EC Decision Date: 12/29/20 Decision Time: 21:16
[2020-12-29] MEDS ORDERED: ONDANSETRON 4 MG/2 ML VIAL IVP PRN (21:14)
[2020-12-29] MEDS ORDERED: NALOXONE 0.4 MG/ML 1 ML VIAL IV PRN (21:14)
[2020-12-29] MEDS: LORazepam 2 MG/ML INJ IV PRN (23:14)
[2020-12-29] MEDS: HYDROmorphone 0.5 MG/0.5 ML SYRINGE IVP PRN (23:14)
[2020-12-30] MEDS: HYDROmorphone 0.5 MG/0.5 ML SYRINGE IVP PRN ×3 (02:34→08:04)
[2020-12-30] MEDS: SODIUM CHLORIDE 0.9% 1,000 ML IV SCH ×3 (03:36→17:28)
[2020-12-30] MEDS: LORazepam 2 MG/ML INJ IV PRN ×3 (04:39→19:26)
[2020-12-30] MEDS ORDERED: methylPREDNISolone SOD SUCCI 40 MG/ML 1 ML VIAL IV SCH (10:15)
[2020-12-30] MEDS: PANTOPRAZOLE 40 MG/10 ML VIAL IVP SCH (11:05)
[2020-12-30] MEDS: HYDROcodone/APAP 7.5-325MG 1 EACH TAB PO PRN ×2 (11:05→16:06)
[2020-12-30] MEDS: KETOROLAC 15 MG/ML 1 ML VIAL IVP PRN ×2 (12:18→17:35)
--- NOTE | 2020-12-30 13:46 | P.HPIM ---
History of Present Illness 40-year-old male with history of Crohn's disease and previous perforations and obstructions came in with the complaints of right lower quadrant abdominal pain sharp in nature and nonradiating and bloated unable to tolerate any diet with nausea. Patient had a CT of the abdomen which did show inflammation in the terminal ileum consistent with Crohn's disease. Patient was given a dose of Zosyn as started the patient on systemic steroids. Gastric body evaluated the patient. Patient is still complaining of a lot of pain. But his abdomen is quite soft patient's Dilaudid will be switched to oral Geff and Toradol. Review of Systems REVIEW OF SYSTEMS: CONSTITUTIONAL: No fever, no malaise, no fatigue. HEENT: No recent visual problems or hearing problems. Denied any sore throat. CARDIOVASCULAR: No chest pain, orthopnea, PND, no palpitations, no syncope. PULMONARY: No shortness of breath, no cough, no hemoptysis. GASTROINTESTINAL: As mentioned in HPI NEUROLOGICAL: No headaches, no weakness, no numbness. HEMATOLOGICAL: Denies any bleeding or petechiae. GENITOURINARY: Denies any burning micturition, frequency, or urgency. MUSCULOSKELETAL/RHEUMATOLOGICAL: Denies any joint pain, swelling, or any muscle pain. ENDOCRINE: Denies any polyuria or polydipsia. The rest of the 14-point review of systems is negative. Past Medical History Past Medical History: GERD/Reflux Additional Past Medical History / Comment(s): crohns, KIDNEY STONES, abd abcess History of Any Multi-Drug Resistant Organisms: None Reported Past Surgical History: Adenoidectomy, Hernia Repair Additional Past Surgical History / Comment(s): RT INGUIAL HERNIA REPAIR. SX FOR DEVIATED SEPTUM, Past Anesthesia/Blood Transfusion Reactions: No Reported Reaction Past Psychological History: No Psychological Hx Reported Additional Psychological History / Comment(s): PT LIVES WITH HIS AND 2 CHILDREN. 1 DOG. 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 NO OUTSDE SERVICES, NO MED EQUIPMENT. Smoking Status: Current every day smoker Past Alcohol Use History: None Reported Additional Past Alcohol Use History / Comment(s): STARTED SMOKING AT AGE 19, SMOKES 1/2 PPD. Past Drug Use History: None Reported - Past Family History Mother Family Medical History: Thyroid Disorder Additional Family Medical History / Comment(s): MOM AGE 50 FROM COMPLICATIONS OF MS Father Family Medical History: Hypertension Medications and Allergies Home Medications Medication Instructions Recorded Confirmed Type No Known Home Medications 12/29/20 12/29/20 History Allergies Allergy/AdvReac Type Severity Reaction Status Date / Time diphenhydramine AdvReac Unknown Rapid Verified 12/29/20 20:49 [From Benadryl] Heart Rate Physical Exam Vitals: Vital Signs Temp Pulse Pulse Resp BP BP Pulse Ox 12/30/20 07:00 97.9 F 113 H 18 150/85 99 12/30/20 02:00 16 12/30/20 01:20 97.9 F 87 18 124/72 96 12/29/20 22:07 16 159/96 100 12/29/20 22:00 85 16 139/91 100 12/29/20 20:48 84 20 145/103 100 12/29/20 19:11 98.1 F 70 17 171/106 98 Intake and Output 12/29/20 12/30/20 12/30/20 22:59 06:59 14:59 Output Total 650 Balance -650 Output: Urine 650 Other: Voiding Method Urinal Urinal # Voids 1 Weight 68.039 kg PHYSICAL EXAMINATION: GENERAL: The patient is alert and oriented x3, not in any acute distress. Well developed, well nourished. HEENT: Pupils are round and equally reacting to light. EOMI. No scleral icterus. No conjunctival pallor. Normocephalic, atraumatic. No pharyngeal erythema. No thyromegaly. CARDIOVASCULAR: S1 and S2 present. No murmurs, rubs, or gallops. PULMONARY: Chest is clear to auscultation, no wheezing or crackles. ABDOMEN: Soft, tenderness in the right lower quadrant patient is bit exacerbating his symptoms , nondistended, normoactive bowel sounds. No palpable organomegaly. MUSCULOSKELETAL: No joint swelling or deformity. EXTREMITIES: No cyanosis, clubbing, or pedal edema. NEUROLOGICAL: Gross neurological examination did not reveal any focal deficits. SKIN: No rashes. Results CBC & Chem 7: 12/29/20 19:34 12/29/20 19:34 Labs: Abnormal Lab Results - Last 24 Hours (Table) 12/29/20 12/29/20 12/30/20 Range/Units 19:34 19:41 11:13 Glucose 102 H (74-99) mg/dL C-Reactive Protein 1.5 H (<1.0) mg/dL Amylase 115 H (30-110) U/L Urine Blood Small H (Negative) Urine RBC 14 H (0-5) /hpf Urine Mucus Rare H (None) /hpf Thrombosis Risk Factor Assmnt - Choose All That Apply Any of the Below Risk Factors Present?: No Other Risk Factors: No Thrombosis Risk Factor Assessment Level: Very Low Risk Assessment and Plan Plan: -Right lower quadrant abdominal pain: Secondary to Crohn's colitis exacerbation patient will be continued on systemic steroids and management as mentioned above. -Tachycardia secondary to pain and colitis -Gastroesophageal reflux disease - nicotine use: Counseling was provided -DVT prophylaxis with Lovenox and GI prophylaxis with Pepcid or Protonix
--- NOTE | 2020-12-30 14:25 | CONS ---
CONSULTATION DATE OF DICTATION: December 30, 2020. REASON FOR CONSULTATION: History of severe abdominal pain, history of Crohn's disease. HISTORY OF PRESENT ILLNESS: The patient is a 40-year-old white male with history of Crohn's ileitis diagnosed about 15 years ago. He had multiple hospitalizations over the last 3 years with exacerbation of Crohn's disease. His last flareup of Crohn's was in September of this year. He was treated with steroids which was tapered over the course of 6 weeks and the last dose was about 3 weeks ago. The patient started having severe right upper quadrant abdominal pain for the last 3-4 days, which became very intense, associated with some diarrhea and nausea, vomiting. He came to the emergency room and subsequently had CT of the abdomen and pelvis done in the ER that showed thickening of the terminal ileum with some surrounding inflammatory changes and mild dilation of the proximal small bowel loops consistent with partial small-bowel obstruction. The patient states that the pain is very intense. He denies any fever, chills, or night sweats. He was last seen in the office about 3 weeks ago at which time biologics were discussed with the patient, but he did not follow up in the office. PAST MEDICAL HISTORY: Significant for Crohn's disease diagnosed about 15 years ago. MEDICATIONS AT HOME: None. ALLERGIES: Allergies to BENADRYL. PAST SURGICAL HISTORY: Adenoidectomy, hernia repair, colonoscopies. SOCIAL HISTORY: Chronic smoker. No alcohol use. FAMILY HISTORY: Mother had hypothyroidism and father had hypertension. REVIEW OF SYSTEMS: CARDIOPULMONARY: No chest pain or shortness of breath. GENITOURINARY: No dysuria or hematuria. MUSCULOSKELETAL: Unremarkable. SKIN: Unremarkable. ENDOCRINE: Unremarkable. PSYCHIATRIC: Unremarkable. NEUROLOGY: Unremarkable. ENT/VISION: Unremarkable. CONSTITUTIONAL: No recent weight loss. No fever, chills, night sweats. GI: As mentioned above. PHYSICAL EXAMINATION: He appears comfortable. No apparent distress. Vital signs are stable. Blood pressure 150/85, pulse rate 113, temperature 97.9. HEENT EXAMINATION: Unremarkable. Conjunctivae pink. Sclerae anicteric. Oral cavity no lesions. NECK: No JVD or lymph node enlargement. CHEST: Was clear to auscultation. HEART: Regular rate and rhythm. ABDOMEN: Soft. There was severe tenderness in the right lower quadrant area. Rest of the abdomen was slightly tender. There was no rebound or rigidity. Bowel sounds are positive. No organomegaly. EXTREMITIES: No pedal edema. NEUROLOGIC: Alert and oriented x3. No focal deficits. LABS: WBC 9.7, hemoglobin 14.5 platelets normal. PT, INR is within normal limits. Basic metabolic panel is normal. CRP is 1.5. Amylase and lipase are normal. Coronavirus PCR is negative. CT of the abdomen showed thickened distal ileum, long segment of the distal ileal thickening with surrounding inflammatory changes and dilated small bowel loops suggestive of active ileitis and partial small-bowel obstruction. IMPRESSION: This is a patient with longstanding history of Crohn's ileitis, presents to the hospital with severe right lower quadrant abdominal pain for the last 3-4 days duration. CAT scan showed thickening of the ileum suggestive of acute exacerbation of Crohn's ileitis with partial small bowel obstruction. RECOMMENDATIONS: 1. Start him on IV Solu-Medrol 20 mg q.8 hours. 2. Start him on a clear liquid diet. 3. Pain medications as needed. 4. We will follow with you closely. Thank you for this consultation. LIZY / FEDERICAN: [phone] /
[2020-12-30] MEDS: NICOTINE 14MG/24HR PATCH TRANSDERM SCH (15:16)
[2020-12-30] MEDS: methylPREDNISolone SOD SUCCI 40 MG/ML 1 ML VIAL IV SCH (15:17)
--- NOTE | 2020-12-30 16:08 | P.GSCN ---
History of Present Illness Consult date: 12/30/20 History of present illness: CHIEF COMPLAINT: Right-sided lower abdominal pain HISTORY OF PRESENT ILLNESS: This is a 40-year-old male with a known history of Crohn's diagnosed about 15 years ago. Patient has also had history of bowel obstructions and possible prior bowel perforation related to his Crohn's. He denies having any bowel surgery done in the past. He has had a hernia repair. He reports he had been hospitalized about 4 months ago for a bowel obstruction and had refused surgery at that time. Patient presents to hospital with right lower abdominal pain that is sharp in nature for the past 3 days. He does report having a bloody bowel movement. He has been nauseous and had vomiting yesterday. Denies any fever, chills or sweats. He had a computed tomography scan of the abdomen and pelvis that showed wall thickening of a segment of distal ileum with fat stranding and proximal dilation is suggestive of inflammatory bowel disease and partial obstruction. This appears similar to old exam. The proximal loop appears less dilated than old exam. The patient is currently being treated as a possible Crohn's exacerbation. Patient has only taken prednisone as needed for his Crohn's flareups. Patient seen and examined with Dr. López PAST MEDICAL HISTORY: See list. PAST SURGICAL HISTORY: See list. MEDICATIONS: See list. ALLERGIES: See list. SOCIAL HISTORY: No illicit drug use. REVIEW OF SYSTEMS: CONSTITUTIONAL: Denies fever or chills. HEENT: Denies blurred vision, vision changes, or eye pain. Denies hemoptysis CARDIOVASCULAR: Denies chest pain or pressure. RESPIRATORY: No shortness of breath. GASTROINTESTINAL: See HPI for pertinent findings HEMATOLOGIC: Denies bleeding disorders. GENITOURINARY: Denies any blood in urine or increased urinary frequency. SKIN: Denies pruitis. Denies rash. PHYSICAL EXAM: VITAL SIGNS: Reviewed GENERAL: Well-developed in no acute distress. HEENT: No sclera icterus. Extraocular movements grossly intact. Moist buccal mucosa. Head is atraumatic, normocephalic. No nasal drainage. ABDOMEN: Soft. Nondistended. Right lower abdominal tenderness NEUROLOGIC: Alert and oriented. Cranial nerves II through XII grossly intact. LABORATORY DATA: WBC 9.7 Hgb 14.5 platelets 284 LFTs normal lipase 207 amylase 115 IMAGING: computed tomography scan of the abdomen and pelvis that showed wall thickening of a segment of distal ileum with fat stranding and proximal dilation is suggestive of inflammatory bowel disease and partial obstruction. This appears similar to old exam. The proximal loop appears less dilated than old exam. ASSESSMENT: 1. Right lower quadrant abdominal pain with the computed tomography scan findings showing wall thickening of a segment of distal ileum with fat stranding and proximal dilation is suggestive of inflammatory bowel disease and partial obstruction 2. Crohn's exacerbation 3. Partial small bowel obstruction PLAN: -Patient is tentatively scheduled for small bowel resection tomorrow, 12/31/[address] López -Keep patient nothing by mouth after midnight -Continue Crohn's management per GI service -Continue pain medication as needed Thank you for this consultation Physician Sports Medicine Trainer note has been reviewed by physician. Signing provider agrees with the documented findings, assessment, and plan of care. Past Medical History Past Medical History: GERD/Reflux Additional Past Medical History / Comment(s): crohns, KIDNEY STONES, abd abcess History of Any Multi-Drug Resistant Organisms: None Reported Past Surgical History: Adenoidectomy, Hernia Repair Additional Past Surgical History / Comment(s): RT INGUIAL HERNIA REPAIR. SX FOR DEVIATED SEPTUM, Past Anesthesia/Blood Transfusion Reactions: No Reported Reaction Past Psychological History: No Psychological Hx Reported Additional Psychological History / Comment(s): PT LIVES WITH HIS AND 2 CHILDREN. 1 DOG. 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 NO OUTSDE SERVICES, NO MED EQUIPMENT. Smoking Status: Current every day smoker Past Alcohol Use History: None Reported Additional Past Alcohol Use History / Comment(s): STARTED SMOKING AT AGE 19, S MOKES 1/2 PPD. Past Drug Use History: None Reported - Past Family History Mother Family Medical History: Thyroid Disorder Additional Family Medical History / Comment(s): MOM AGE 50 FROM COM PLICATIONS OF MS Father Family Medical History: Hypertension Medications and Allergies Home Medications Medication Instructions Recorded Confirmed Type No Known Home Medications 12/29/20 12/29/20 History Allergies Allergy/AdvReac Type Severity Reaction Status Date / Time diphenhydramine AdvReac Unknown Rapid Verified 12/29/20 20:49 [From Benadryl] Heart Rate Surgical - Exam Vital Signs Temp Pulse Resp BP Pulse Ox 98.1 F 70 17 171/106 98 12/29/20 19:11 12/29/20 19:11 12/29/20 19:11 12/29/20 19:11 12/29/20 19:11 Results - Labs 12/29/20 19:34 12/29/20 19:34 Abnormal Lab Results - Last 24 Hours (Table) 12/29/20 12/29/20 12/30/20 Range/Units 19:34 19:41 11:13 Glucose 102 H (74-99) mg/dL C-Reactive Protein 1.5 H (<1.0) mg/dL Amylase 115 H (30-110) U/L Urine Blood Small H (Negative) Urine RBC 14 H (0-5) /hpf Urine Mucus Rare H (None) /hpf Diabetes panel 12/29/20 Range/Units 19:34 Sodium 141 (137-145) mmol/L Potassium 4.1 (3.5-5.1) mmol/L Chloride 107 (98-107) mmol/L Carbon Dioxide 25 (22-30) mmol/L BUN 15 (9-20) mg/dL Creatinine 0.80 (0.66-1.25) mg/dL Glucose 102 H (74-99) mg/dL Calcium 9.6 (8.4-10.2) mg/dL AST 30 (17-59) U/L ALT 36 (4-49) U/L Alkaline Phosphatase 102 (38-126) U/L Total Protein 7.9 (6.3-8.2) g/dL Albumin 4.5 (3.5-5.0) g/dL Calcium panel 12/29/20 Range/Units 19:34 Calcium 9.6 (8.4-10.2) mg/dL Albumin 4.5 (3.5-5.0) g/dL Pituitary panel 12/29/20 Range/Units 19:34 Sodium 141 (137-145) mmol/L Potassium 4.1 (3.5-5.1) mmol/L Chloride 107 (98-107) mmol/L Carbon Dioxide 25 (22-30) mmol/L BUN 15 (9-20) mg/dL Creatinine 0.80 (0.66-1.25) mg/dL Glucose 102 H (74-99) mg/dL Calcium 9.6 (8.4-10.2) mg/dL Adrenal panel 12/29/20 Range/Units 19:34 Sodium 141 (137-145) mmol/L Potassium 4.1 (3.5-5.1) mmol/L Chloride 107 (98-107) mmol/L Carbon Dioxide 25 (22-30) mmol/L BUN 15 (9-20) mg/dL Creatinine 0.80 (0.66-1.25) mg/dL Glucose 102 H (74-99) mg/dL Calcium 9.6 (8.4-10.2) mg/dL Total Bilirubin 0.3 (0.2-1.3) mg/dL AST 30 (17-59) U/L ALT 36 (4-49) U/L Alkaline Phosphatase 102 (38-126) U/L Total Protein 7.9 (6.3-8.2) g/dL Albumin 4.5 (3.5-5.0) g/dL
[2020-12-30] MEDS ORDERED: NICOTINE 14MG/24HR PATCH TRANSDERM SCH (21:00)
[2020-12-31] MEDS: methylPREDNISolone SOD SUCCI 40 MG/ML 1 ML VIAL IV SCH ×3 (00:32→17:51)
[2020-12-31] MEDS: SODIUM CHLORIDE 0.9% 1,000 ML IV SCH ×2 (00:33→17:50)
[2020-12-31] MEDS: KETOROLAC 15 MG/ML 1 ML VIAL IVP PRN ×3 (01:12→22:37)
[2020-12-31] MEDS: HYDROcodone/APAP 7.5-325MG 1 EACH TAB PO PRN ×2 (01:13→07:19)
[2020-12-31 06:21] LABS: Basophils % (A) 0 %; Eosinophils % (A) 0 %; HCT 41.8 % (39.0-53.0); HGB 13.6 gm/dL (13.0-17.5); Lymphocytes # (A) 0.8 k/uL (1.0-4.8); Lymphocytes % (A) 6 %; MCH 30.4 pg (25.0-35.0); MCHC 32.5 g/dL (31.0-37.0); MCV 93.3 fL (80.0-100.0); Mean Platelet Volume 7.4; Monocytes # (A) 0.4 k/uL (0-1.0); Monocytes % (A) 3 %; Neutrophils % (A) 90 %; Platelet Count 283 k/uL (150-450); RBC 4.48 m/uL (4.30-5.90); RDW 13.3 % (11.5-15.5); WBC 13.3 k/uL (3.8-10.6)
[2020-12-31 06:36] LABS: African American GFR (CKD) >90 (>60 ml/min/1.73 sqM); Anion Gap 5 mmol/L; Blood Urea Nitrogen 14 mg/dL (9-20); C Reactive Protein 1.2 mg/dL (<1.0); Calcium 9.5 mg/dL (8.4-10.2); Carbon Dioxide 28 mmol/L (22-30); Chloride 105 mmol/L (98-107); Glucose 116 mg/dL (74-99); Non-African American GFR(CKD) >90 (>60 ml/min/1.73 sqM); Potassium 4.6 mmol/L (3.5-5.1); Sodium 138 mmol/L (137-145)
[2020-12-31] MEDS: PANTOPRAZOLE 40 MG/10 ML VIAL IVP SCH (08:11)
[2020-12-31] MEDS: LORazepam 2 MG/ML INJ IV PRN (08:25)
[2020-12-31 08:56] LABS: Erythrocyte Sedimentation Rate 3 mm/hr (0-15)
[2020-12-31] MEDS: NICOTINE 14MG/24HR PATCH TRANSDERM SCH (09:20)
[2020-12-31] MEDS ORDERED: LACTATED RINGERS 1,000 ML IV ONE ×2 (13:00→15:27)
[2020-12-31] MEDS ORDERED: HEPARIN SODIUM,PORCINE/PF 5,000 UNIT/0.5 ML SYRINGE SQ ONE (13:14)
[2020-12-31] MEDS ORDERED: MIDAZOLAM 2 MG/2 ML VIAL IVP ONE (13:26)
[2020-12-31] MEDS ORDERED: fentaNYL (PF) 50 MCG/ML 2 ML AMP IVP ONE (13:26)
[2020-12-31] MEDS ORDERED: metroNIDAZOLE-NS PMX 500 MG in SALINE 1 100ML.BAG IVPB STA (13:41)
[2020-12-31] MEDS ORDERED: DEXAMETHASONE SOD PHOSPHATE 4 MG/ML 1 ML VIAL IVP ONE (13:49)
[2020-12-31] MEDS ORDERED: ONDANSETRON 4 MG/2 ML VIAL IVP ONE (13:49)
[2020-12-31] MEDS ORDERED: HEPARIN SODIUM,PORCINE 5,000 UNIT/ML 1 ML VIAL SQ ONE (14:05)
[2020-12-31] MEDS ORDERED: NEOSTIGMINE 1 MG/ML 10 ML VIAL ONE (14:24)
[2020-12-31] MEDS ORDERED: PROPOFOL 10 MG/ML 20 ML VIAL IV ONE (14:24)
[2020-12-31] MEDS ORDERED: KETAMINE 10 MG/ML 20 ML VIAL ONE (14:24)
[2020-12-31] MEDS ORDERED: ROCURONIUM 10 MG/ML (5 ML VIAL) IV ONE (14:24)
[2020-12-31] MEDS ORDERED: MIDAZOLAM 2 MG/2 ML VIAL ONE (14:24)
[2020-12-31] MEDS ORDERED: SUCCINYLCHOLINE CHLORIDE 100 MG/5 ML SYR IV ONE (14:24)
[2020-12-31] MEDS ORDERED: GLYCOPYRROLATE 0.2 MG/ML 2 ML VIAL ONE (14:24)
[2020-12-31] MEDS ORDERED: fentaNYL (PF) 50 MCG/ML 2 ML AMP ONE (14:24)
[2020-12-31] MEDS ORDERED: LIDOCAINE 1% INJ 10MG/ML (20 ML MDV) ONE (14:24)
[2020-12-31] MEDS ORDERED: SODIUM CHLORIDE 0.9% 100 ML with ceFAZolin 2,000 MG IV ONE ×2 (14:40)
--- NOTE | 2020-12-31 14:43 | P.ANPRN ---
Procedure Note - Anesthesia - Nerve Block Performed Bilateral Erector Spinae Single Time Out Performed: Yes (1255) Date of Procedure: 12/31/20 Procedure Start Time: 12:56 Procedure Stop Time: 13:04 Location of Patient: PreOp Indication: Acute Post-Operative Pain, Requested by Surgeon Specifically requested for management of pain by DrPedro: Jason López Sedation Type: Sedate with meaningful contact maintained Preparation: Sterile Prep Position: Supine Catheter: None Needle Types: Pajunk Needle Gauge: 21 Ultrasound used to visualize needle placement: Yes Ultrasound used to observe medication spread: Yes Injectate: 0.5% Ropivacaine (see comment for volume) (15cc + 15cc NACL each side) Blood Aspirated: No Pain Paresthesia on Injection Noted: No Resistance on Injection: Normal Image Stored and Saved: Yes Events: Uneventful and Well Tolerated
--- NOTE | 2020-12-31 15:31 | P.PN ---
Subjective Progress Note Date: 12/31/20 Principal diagnosis: Crohn's exacerbation This is a 40-year-old white male with history of Crohn's ileitis diagnosed about 15 years ago. Had multiple hospitalization over the last 3 years with exacerbation of Crohn disease however does not have consistent follow-up in the outpatient setting. His last flare up of Crohn's was in September of this year was treated with steroids are tapered dose over 6 weeks. Abdomen and pelvis CT exam done in the emergency department showed thickening of the terminal ileum with some surrounding inflammatory changes and mild dilation of the proximal small bowel loops consistent with partial small bowel obstruction. Today the patient was seen and examined, states he was seen by surgical services and is planned for small bowel resection today. Is denying any nausea or vomiting, has not had a bowel movement in 3 days, and states his pain is consistently severe. CRP 0.2, sed rate 3.0. Objective - Vital Signs Vital signs: Vital Signs Temp 97.4 F L 12/31/20 02:00 Pulse 80 12/31/20 02:00 Resp 14 12/31/20 02:00 BP 123/72 12/31/20 02:00 Pulse Ox 99 12/31/20 02:00 Intake & Output 12/30/20 12/31/20 12/31/20 18:59 06:59 18:59 Output Total 950 450 Balance -950 -450 Output: Urine 950 450 Other: Voiding Method Urinal Urinal # Voids 1 - Exam General appearance: The patient is alert, oriented, appears in no acute distress. HET: Head is normocephalic and atraumatic. Conjunctiva pink. Sclera anicteric. Neck: Supple without lymphadenopathy. Abdomen: Soft, right lower quadrant tenderness with diffuse tenderness, nondistended with bowel sounds. No guarding or rigidity. Extremities: Normal skin color and turgor. No pedal edema Skin: No rashes, no jaundice Neurological: No focal deficits. Alert and oriented 3. - Labs CBC & Chem 7: 12/31/20 05:19 12/31/20 05:19 Labs: Abnormal Lab Results - Last 24 Hours (Table) 12/30/20 12/31/20 12/31/20 Range/Units 11:13 05:19 05:19 WBC 13.3 H (3.8-10.6) k/uL Neutrophils # 12.0 H (1.3-7.7) k/uL Lymphocytes # 0.8 L (1.0-4.8) k/uL Glucose 116 H (74-99) mg/dL C-Reactive Protein 1.5 H 1.2 H (<1.0) mg/dL Assessment and Plan (1) Exacerbation of Crohn's disease Narrative/Plan: This male patient with a long-standing history of Crohn's ileitis presenting to the hospital with severe right lower quadrant abdominal pain for last 3-4 days duration. CAT scan showed thickening of the ileum suggestive of acute exacerbation of Crohn's ileitis with partial small bowel obstruction. He is scheduled today with surgical services for small bowel resection. Inflammatory markers normal. Continue IV Solu-Medrol. Current Visit: No Status: Acute Code(s): K50.90 - CROHN'S DISEASE, UNSPECIFIED, WITHOUT COMPLICATIONS SNOMED Code(s): 61880589 Plan: 1. Continue IV Solu-Medrol 20 mg every 8 hours 2. Diaper recommendations from surgical team 3. Pain medications per surgical team Thank you for this consultation, will continue to follow Dr. Summer Narvaez I agree with the dictator's note, documented as a scribe by Indu Tracy.
[2020-12-31] MEDS ORDERED: ONDANSETRON 4 MG/2 ML VIAL IVP PRN (15:33)
[2020-12-31] MEDS ORDERED: METOCLOPRAMIDE 5 MG/ML 2 ML VIAL IVP PRN (15:33)
[2020-12-31] MEDS ORDERED: BENZOCAINE/MENTHOL LOZENG 1 EACH LOZENGE MUCOUS MEM PRN (15:33)
--- NOTE | 2020-12-31 15:33 | P.OP ---
Date of Procedure: 12/31/20 Preoperative Diagnosis: Small bowel obstruction Postoperative Diagnosis: Small bowel obstruction related to Crohn's disease Procedure(s) Performed: Ileocolectomy Anesthesia: [facility] Surgeon: Jason López Estimated Blood Loss (ml): 50 Pathology: other (Terminal ileum and right colon) Condition: stable Disposition: PACU Description of Procedure: The patient's placed on the operative table in supine position. He received general anesthesia. His abdomen was prepped and draped usual fashion. The abdomen was entered through midline incision and then the buckle was retractors placed a wound. The terminal ileum was quite inflamed and appeared to cause an obstruction. Patient inflamed or bowel disease of the terminal ileum and right colon. At this point the terminal ileum was transected at the proximal colon at the proximal bowel edge and the right colon was transected at the proximal transverse colon with a GI stapler. Using the Enseal device the mesentery the bowel was divided. The specimens of pathology. A [id number] functional end-to-end staple anastomosis created using BK and TA stapler. 3-0 GI silk sutures uses crotch stitch. The abdomen is resolving seen. The fascia was closed with looped #1 PDS suture. Skin was closed lam. Patient top she wi ll was sent to recovery room in stable condition.
[2020-12-31] MEDS ORDERED: HYDROmorphone 0.5 MG/0.5 ML SYRINGE IVP ONE ×4 (15:52→16:30)
[2020-12-31] MEDS ORDERED: hydrALAZINE HCL 20 MG/ML 1 ML VIAL IVP ONE (16:14)
[2020-12-31] MEDS: D5-0.45% NACL WITH KCL 20MEQ/L 1,000 ML IV SCH (17:23)
[2020-12-31] MEDS: HYDROmorphone 1 MG/ML 1 ML SYRINGE IVP PRN ×2 (19:46→22:51)
[2020-12-31] MEDS: FAMOTIDINE 20 MG/2 ML VIAL IV SCH (19:48)
[2020-12-31] MEDS: ALVIMOPAN 12 MG CAPSULE PO SCH (19:48)
[2021-01-01] MEDS: methylPREDNISolone SOD SUCCI 40 MG/ML 1 ML VIAL IV SCH ×2 (00:09→08:19)
[2021-01-01] MEDS: LORazepam 2 MG/ML INJ IV PRN ×4 (00:09→21:44)
[2021-01-01] MEDS: D5-0.45% NACL WITH KCL 20MEQ/L 1,000 ML IV SCH ×3 (00:10→18:07)
[2021-01-01] MEDS: SODIUM CHLORIDE 0.9% 1,000 ML IV SCH ×3 (01:19→23:38)
[2021-01-01] MEDS: HYDROmorphone 1 MG/ML 1 ML SYRINGE IVP PRN ×7 (02:19→20:43)
[2021-01-01] MEDS: NICOTINE 14MG/24HR PATCH TRANSDERM SCH (08:19)
[2021-01-01] MEDS: PANTOPRAZOLE 40 MG/10 ML VIAL IVP SCH (08:19)
[2021-01-01] MEDS: FAMOTIDINE 20 MG/2 ML VIAL IV SCH (08:19)
[2021-01-01 10:25] LABS: African American GFR (CKD) 121.7 (60.0-200.0); Anion Gap 8.3 mmol/L (4.00-12.00); BUN/Creat Ratio 24.44 Ratio (12.00-20.00); Calcium 8.1 mg/dL (8.7-10.3); Carbon Dioxide 24.7 mmol/L (21.6-31.8); Potassium 4.6 mmol/L (3.5-5.5)
[2021-01-01 11:48] LABS: HCT 28.9 % (39.6-50.0); MCH 30.4 pg (27.0-32.0); MCHC 31.1 g/dL (32.0-37.0); MCV 97.6 fL (80.0-97.0); Mean Platelet Volume 10.7 fL (9.5-12.2); Platelet Count 271 X 10*3/uL (140-440); RBC 2.96 X 10*6/uL (4.40-5.60); RDW 13.8 % (11.5-14.5); WBC 16.26 X 10*3/uL (4.50-10.00)
--- NOTE | 2021-01-01 12:15 | PN ---
PROGRESS NOTE DATE OF SERVICE: 01/01/2021 INTERVAL HISTORY: Patient is a 40-year-old pleasant white female with a history of Crohn's ileitis diagnosed several years ago. Admitted to the hospital with severe right lower quadrant abdominal pain and partial small bowel obstruction. He underwent terminal ileum and right colon resection by Dr. López yesterday for small bowel obstruction. The patient this morning had one bowel movement with bright red blood per rectum. He continues to complain of severe abdominal pain. No nausea, no vomiting. PHYSICAL EXAMINATION: GENERAL: Appears comfortable. VITAL SIGNS: Stable. Blood pressure is 140/77, pulse rate 93, temperature 98.4. HEENT: Examination unremarkable. Conjunctivae are pink. Sclerae anicteric. Oral cavity no lesions. NECK: No JVD or lymph node enlargement. CHEST: Clear to auscultation. ABDOMEN: Soft, it was distended. There was a midline scar from the xiphoid sternum to the suprapubic area, slightly distended. EXTREMITIES: No pedal edema. NEURO: He is alert and oriented x3. No focal deficits. LABS: WBC 13.3, [id number], platelets normal. Basic metabolic panel is within normal limits. CRP is 1.2. IMPRESSION: 1. Crohn's ileitis with partial small bowel obstruction, status post terminal ileum and right colon resection by Dr. López yesterday. The patient was on IV steroids for the last 3 days for exacerbation of Crohn's. 2. Rectal bleeding x1 episode. Hemoglobin remains stable. RECOMMENDATIONS: 1. Monitor CBC closely. 2. Management as per surgical team. 3. Will discontinue IV steroids. 4. We will follow with you closely. Thank you for this consultation. MMODL / IJN: [id number] /
[2021-01-01] MEDS: ALVIMOPAN 12 MG CAPSULE PO SCH ×2 (12:22→22:25)
[2021-01-01] MEDS: KETOROLAC 15 MG/ML 1 ML VIAL IVP PRN (12:22)
[2021-01-01 13:00] LABS: Basophils # (A) 0.01 X 10*3/uL (0.00-0.10); Basophils % (A) 0.1 %; Eosinophils # (A) 0 X 10*3/uL (0.04-0.35); Eosinophils % (A) 0 %; Lymphocytes # (A) 0.62 X 10*3/uL (0.90-5.00); Lymphocytes % (A) 3.8 %; Monocytes # (A) 1.65 X 10*3/uL (0.20-1.00); Monocytes % (A) 10.1 %; Neutrophils # (A) 13.87 X 10*3/uL (1.80-7.70); Neutrophils % (A) 85.3 %
--- NOTE | 2021-01-01 13:26 | P.PN ---
Subjective Progress Note Date: 12/31/20 Principal diagnosis: Small bowel obstruction related to Crohn's disease Crohn's colitis exacerbation 40-year-old male with history of Crohn's disease and previous perforations and o bstructions came in with the complaints of right lower quadrant abdominal pain sharp in nature and nonradiating and bloated unable to tolerate any diet with nausea. Patient had a CT of the abdomen which did show inflammation in the terminal ileum consistent with Crohn's disease. Patient was given a dose of Zosyn as started the patient on systemic steroids. Gastric body evaluated the patient. Patient is still complaining of a lot of pain. But his abdomen is quite soft patient's Dilaudid will be switched to oral [place] and Toradol. GI on board and recommending to continue IV Solu-Medrol 20 mg every 8 hours; surgery has evaluated patient and is recommending small bowel resection with anastomosis Objective - Vital Signs Vital signs: Vital Signs Temp 99.7 F H 12/31/20 12:50 Pulse 87 12/31/20 12:50 Resp 16 12/31/20 12:50 BP 132/86 12/31/20 12:50 Pulse Ox 97 12/31/20 12:50 Intake & Output 12/30/20 12/31/20 12/31/20 18:59 06:59 18:59 Output Total 950 450 Balance -950 -450 Output: Urine 950 450 Other: Voiding Method Urinal Urinal # Voids 1 - Exam GENERAL: The patient is alert and oriented x3, not in any acute distress. Well developed, well nourished. HEENT: Pupils are round and equally reacting to light. EOMI. No scleral icterus. No conjunctival pallor. Normocephalic, atraumatic. No pharyngeal erythema. No thyromegaly. CARDIOVASCULAR: S1 and S2 present. No murmurs, rubs, or gallops. PULMONARY: Chest is clear to auscultation, no wheezing or crackles. ABDOMEN: Soft, tenderness in the right lower quadrant patient is bit exacerbating his symptoms , nondistended, normoactive bowel sounds. No palpable organomegaly. MUSCULOSKELETAL: No joint swelling or deformity. EXTREMITIES: No cyanosis, clubbing, or pedal edema. NEUROLOGICAL: Gross neurological examination did not reveal any focal deficits. SKIN: No rashes. - Labs CBC & Chem 7: 01/01/21 03:22 01/01/21 03:22 Labs: Abnormal Lab Results - Last 24 Hours (Table) 12/31/20 12/31/20 Range/Units 05:19 05:19 WBC 13.3 H (3.8-10.6) k/uL Neutrophils # 12.0 H (1.3-7.7) k/uL Lymphocytes # 0.8 L (1.0-4.8) k/uL Glucose 116 H (74-99) mg/dL C-Reactive Protein 1.2 H (<1.0) mg/dL Assessment and Plan Assessment: -Right lower quadrant abdominal pain: Secondary to Crohn's colitis exacerbation patient will be continued on systemic steroids and management as mentioned above. -Tachycardia secondary to pain and colitis -Gastroesophageal reflux disease - nicotine use: Counseling was provided -DVT prophylaxis with Lovenox and GI prophylaxis with Pepcid
[2021-01-01] MEDS: HYDROcodone/APAP 7.5-325MG 1 EACH TAB PO PRN (16:17)
[2021-01-01 17:56] LABS: HCT 23.5 % (39.0-53.0); MCH 32.3 pg (25.0-35.0); MCHC 34.7 g/dL (31.0-37.0); MCV 93.3 fL (80.0-100.0); Mean Platelet Volume 7.4; Platelet Count 211 k/uL (150-450); RBC 2.51 m/uL (4.30-5.90); RDW 13.4 % (11.5-15.5); WBC 9.8 k/uL (3.8-10.6)
[2021-01-01 18:19] LABS: HGB 8.1 gm/dL (13.0-17.5)
[2021-01-01] MEDS ORDERED: SODIUM CHLORIDE 0.9% 1,000 ML IV ONE (18:31)
--- NOTE | 2021-01-01 18:38 | P.PN ---
Subjective Progress Note Date: 01/01/21 CHIEF COMPLAINT: Small bowel obstruction HISTORY OF PRESENT ILLNESS: The patient is a 40 year old male status post ileo- colectomy for small bowel obstruction due to Crohns, 12/31/20. He reports poor pain control as he has history of chronic pain needs. He had three bloody bowel movements. He is on toradol. REVIEW OF ORGAN SYSTEMS: No chest pain, no shortness of breath. No nausea or vomiting. PHYSICAL EXAM: VITALS: Reviewed CONSTITUTIONAL: Well developed and in no acute distress. EYES: Conjuctivae without sclera icterus. Extraocular movements grossly intact. HEAD, EARS, NOSE, THROAT: Moist buccal mucosa. Head is atraumatic, normocephalic. Hears conversational speech. RESPIRATORY: Non-labored respirations and equal bilateral excursions. No gross wheezes. CARDIOVASCULAR: Regular rate and rhythm. Palpable 2+ radial pulses. ABDOMEN: Dressing intact. Mild distention. . NEUROLOGIC: Cranial nerves II through XII grossly intact. No focal or lateralizing signs. PSYCH: Alert to person, place and time. CLINCAL LABS: Reviewed. ASSESSMENT: 1. Crohns disease with bowel obstruction 2. Chronic pain PLAN: 1. He reports three blood bowel movements. Toradol held. IV fluids ordered 2. For pain needs, dilaudid increased 2 mg every 3 hrs prn, neurontin scheduled ordered and ofirmev scheduled Objective - Vital Signs Vital signs: Vital Signs Temp 97.8 F 01/01/21 13:05 Pulse 86 01/01/21 13:05 Resp 16 01/01/21 13:05 BP 108/67 01/01/21 13:05 Pulse Ox 99 01/01/21 13:05 Intake & Output 12/31/20 01/01/21 01/01/21 18:59 06:59 18:59 Intake Total 1700 Output Total 305 700 Balance 1395 -700 Intake: IV 1700 Output: Urine 255 700 Uretheral ([place]) 700 Estimated Blood Loss 50 Other: Voiding Method Urinal # Voids 1 - Labs CBC & Chem 7: 01/01/21 17:21 01/01/21 03:22 Labs: Abnormal Lab Results - Last 24 Hours (Table) 01/01/21 01/01/21 01/01/21 Range/Units 03:22 03:22 17:21 WBC 16.26 H (4.50-10.00) X 10*3/uL RBC 2.96 L 2.51 L (4.40-5.60) X 10*6/uL Hgb 9.0 L 8.1 L D (13.0-17.0) g/dL Hct 28.9 L 23.5 L (39.6-50.0) % MCV 97.6 H (80.0-97.0) fL MCHC 31.1 L (32.0-37.0) g/dL Immature Gran # 0.11 H (0.00-0.04) X 10*3/uL Neutrophils # 13.87 H (1.80-7.70) X 10*3/uL Lymphocytes # 0.62 L (0.90-5.00) X 10*3/uL Monocytes # 1.65 H (0.20-1.00) X 10*3/uL Eosinophils # 0 L (0.04-0.35) X 10*3/uL BUN/Creatinine Ratio 24.44 H (12.00-20.00) Ratio Glucose 160 H (70-110) mg/dL Calcium 8.1 L (8.7-10.3) mg/dL
[2021-01-01] MEDS: LIDOCAINE 5% PATCH TOPICAL SCH (19:57)
[2021-01-01] MEDS: ACETAMINOPHEN IV (For NPO) 1,000 MG in EMPTY BAG 1 BAG IVPB SCH (19:58)
[2021-01-01] MEDS: GABAPENTIN 300 MG CAP PO SCH ×2 (19:58→23:43)
[2021-01-02] MEDS: ACETAMINOPHEN IV (For NPO) 1,000 MG in EMPTY BAG 1 BAG IVPB SCH ×3 (00:58→17:01)
[2021-01-02] MEDS: HYDROmorphone 1 MG/ML 1 ML SYRINGE IVP PRN ×7 (01:03→22:23)
[2021-01-02] MEDS: LORazepam 2 MG/ML INJ IV PRN (02:53)
[2021-01-02] MEDS: D5-0.45% NACL WITH KCL 20MEQ/L 1,000 ML IV SCH ×3 (03:02→22:17)
--- NOTE | 2021-01-02 09:06 | PN ---
PROGRESS NOTE DATE OF SERVICE: January 02, 2021 Patient is a 40-year-old pleasant white male with history of Crohn's ileitis, status post terminal ileal and right colon resection [address] López for partial small bowel obstruction and exacerbation. The patient is doing better. Still has abdominal distention, started on a clear liquid diet yesterday by Dr. Vasques. He had one episode of rectal bleeding yesterday but today it has resolved. In fact, he had no bowel movements this morning. PHYSICAL EXAMINATION: Appears comfortable, complaining of pain. VITAL SIGNS: Blood pressure 123/72, pulse rate 97, temperature 98. HEENT examination unremarkable. Conjunctivae pink. Sclerae anicteric. Oral cavity no lesions. NECK: No JVD or lymph node enlargement. CHEST: Clear to auscultation. ABDOMEN is distended. Mild tenderness. Diffuse all over the abdomen. Midline scar noted. EXTREMITIES: No pedal edema. NEUROLOGIC: Alert and oriented x3. No focal deficits. LABS: From today WBC 9.8, hemoglobin 8.1, platelets 211. IMPRESSION: 1. Crohn's ileocolitis with partial small bowel obstruction and flare-up status post TI and right colon resection. Postop day number two, gradually improving. 2. Rectal bleeding x1 yesterday, resolved. 3. Anemia secondary to acute gastrointestinal bleed and exacerbation of Crohn's disease. RECOMMENDATIONS: 1. Continue management as per surgical team. 2. Continue with a clear liquid diet. 3. Monitor CBC daily. 4. We will follow with you. Thank you for this consultation. MMODL / IJN: [id number] /
[2021-01-02] MEDS: NICOTINE 14MG/24HR PATCH TRANSDERM SCH (09:20)
[2021-01-02] MEDS: PANTOPRAZOLE 40 MG/10 ML VIAL IVP SCH (09:20)
[2021-01-02] MEDS: LIDOCAINE 5% PATCH TOPICAL SCH (09:20)
[2021-01-02] MEDS: GABAPENTIN 300 MG CAP PO SCH ×3 (09:21→22:23)
[2021-01-02 09:42] LABS: Basophils # (A) 0.01 X 10*3/uL (0.00-0.10); Basophils % (A) 0.1 %; Eosinophils # (A) 0.06 X 10*3/uL (0.04-0.35); Eosinophils % (A) 0.7 %; HCT 22.4 % (39.6-50.0); Lymphocytes # (A) 2.42 X 10*3/uL (0.90-5.00); Lymphocytes % (A) 29.5 %; MCH 30.6 pg (27.0-32.0); MCHC 31.3 g/dL (32.0-37.0); MCV 97.8 fL (80.0-97.0); Mean Platelet Volume 10.8 fL (9.5-12.2); Monocytes # (A) 1.14 X 10*3/uL (0.20-1.00); Monocytes % (A) 13.9 %; Neutrophils # (A) 4.56 X 10*3/uL (1.80-7.70); Neutrophils % (A) 55.6 %; Platelet Count 214 X 10*3/uL (140-440); RBC 2.29 X 10*6/uL (4.40-5.60); RDW 13.7 % (11.5-14.5); WBC 8.21 X 10*3/uL (4.50-10.00)
--- NOTE | 2021-01-02 12:48 | P.PN ---
Subjective Progress Note Date: 01/01/21 Principal diagnosis: Small bowel obstruction related to Crohn's disease Crohn's colitis exacerbation 40-year-old male with history of Crohn's disease and previous perforations and o bstructions came in with the complaints of right lower quadrant abdominal pain sharp in nature and nonradiating and bloated unable to tolerate any diet with nausea. Patient had a CT of the abdomen which did show inflammation in the terminal ileum consistent with Crohn's disease. Patient was given a dose of Zosyn as started the patient on systemic steroids. Gastric body evaluated the patient. Patient is still complaining of a lot of pain. But his abdomen is quite soft patient's Dilaudid will be switched to oral [place] and Toradol. 01/01/2021 Patient is seen and evaluated resting comfortably in bed; this is seen to be in any distress but continues to complain of uncontrolled pain on Dilaudid every 4 hours GI on board and recommending to continue IV Solu-Medrol 20 mg every 8 hours; surgery has evaluated patient and patient is status post ileocolectomy for small bowel obstruction due to chronic on 12/31/2020; patient is status post 3 bloody bowel movements; surgery is recommending to hold Toradol; we will monitor H&H closely and transfuse as needed; patient remains on IV fluids Objective - Vital Signs Vital signs: Vital Signs Temp 97.7 F 01/01/21 13:01 Pulse 79 01/01/21 13:01 Resp 18 01/01/21 13:01 BP 146/91 01/01/21 13:01 Pulse Ox 99 01/01/21 13:01 Intake & Output 12/31/20 01/01/21 01/01/21 18:59 06:59 18:59 Intake Total 1700 Output Total 305 700 Balance 1395 -700 Intake: IV 1700 Output: Urine 255 700 Uretheral ([place]) 700 Estimated Blood Loss 50 Other: Voiding Method Urinal # Voids 1 - Exam GENERAL: The patient is alert and oriented x3, not in any acute distress. Well developed, well nourished. HEENT: Pupils are round and equally reacting to light. EOMI. No scleral icterus. No conjunctival pallor. Normocephalic, atraumatic. No pharyngeal erythema. No thyromegaly. CARDIOVASCULAR: S1 and S2 present. No murmurs, rubs, or gallops. PULMONARY: Chest is clear to auscultation, no wheezing or crackles. ABDOMEN: Soft, tenderness in the right lower quadrant patient is bit exacerbating his symptoms , nondistended, normoactive bowel sounds. No palpable organomegaly. MUSCULOSKELETAL: No joint swelling or deformity. EXTREMITIES: No cyanosis, clubbing, or pedal edema. NEUROLOGICAL: Gross neurological examination did not reveal any focal deficits. SKIN: No rashes. - Labs CBC & Chem 7: 01/02/21 04:45 01/01/21 03:22 Labs: Abnormal Lab Results - Last 24 Hours (Table) 01/01/21 01/01/21 Range/Units 03:22 03:22 WBC 16.26 H (4.50-10.00) X 10*3/uL RBC 2.96 L (4.40-5.60) X 10*6/uL Hgb 9.0 L (13.0-17.0) g/dL Hct 28.9 L (39.6-50.0) % MCV 97.6 H (80.0-97.0) fL MCHC 31.1 L (32.0-37.0) g/dL Immature Gran # 0.11 H (0.00-0.04) X 10*3/uL Neutrophils # 13.87 H (1.80-7.70) X 10*3/uL Lymphocytes # 0.62 L (0.90-5.00) X 10*3/uL Monocytes # 1.65 H (0.20-1.00) X 10*3/uL Eosinophils # 0 L (0.04-0.35) X 10*3/uL BUN/Creatinine Ratio 24.44 H (12.00-20.00) Ratio Glucose 160 H (70-110) mg/dL Calcium 8.1 L (8.7-10.3) mg/dL Assessment and Plan Assessment: -Right lower quadrant abdominal pain: Secondary to Crohn's colitis exacerbation patient will be continued on systemic steroids and management as mentioned above. -Tachycardia secondary to pain and colitis -Gastroesophageal reflux disease - nicotine use: Counseling was provided -DVT prophylaxis with Lovenox and GI prophylaxis with Pepcid
--- NOTE | 2021-01-02 16:56 | P.PN ---
Subjective Progress Note Date: 01/02/21 CHIEF COMPLAINT: Small bowel obstruction HISTORY OF PRESENT ILLNESS: The patient is a 40 year old male status post ileo- colectomy for small bowel obstruction due to Crohns, 12/31/20. His pain is better controlled after increase in Dilaudid including scheduled or from mass. No further reports of bloody stools last night or today. He's tolerating liquid diet. He is passing flatus. REVIEW OF ORGAN SYSTEMS: No chest pain, no shortness of breath. No nausea or vomiting. PHYSICAL EXAM: VITALS: Reviewed CONSTITUTIONAL: Well developed and in no acute distress. EYES: Conjuctivae without sclera icterus. Extraocular movements grossly intact. HEAD, EARS, NOSE, THROAT: Moist buccal mucosa. Head is atraumatic, normocephalic. Hears conversational speech. RESPIRATORY: Non-labored respirations and equal bilateral excursions. No gross wheezes. CARDIOVASCULAR: Regular rate and rhythm. Palpable 2+ radial pulses. ABDOMEN: Dressing intact. No peritonitis. NEUROLOGIC: Cranial nerves II through XII grossly intact. No focal or lateralizing signs. PSYCH: Alert to person, place and time. CLINCAL LABS: Reviewed. Hemoglobin dropped from 9.0-7.0. ASSESSMENT: 1. Crohns disease with bowel obstruction 2. Chronic pain 3. Acute blood loss anemia PLAN: 1. For his acute anemia, he is stable. Recommend iron infusions. 2. Recommend whole blood products as no further bleeding reported. 3. Hold ibuprofen or NSAIDs due to recent bleed Objective - Vital Signs Vital signs: Vital Signs Temp 98.6 F 01/02/21 16:07 Pulse 104 H 01/02/21 16:07 Resp 16 01/02/21 16:07 BP 126/76 01/02/21 16:07 Pulse Ox 99 01/02/21 16:07 Intake & Output 01/01/21 01/02/21 01/02/21 18:59 06:59 18:59 Intake Total 0 Output Total 1500 Balance -1500 0 Intake: Blood Product 0 Rc Pheresis As-3 Unit 0 [id number] Output: Urine 1500 Other: Voiding Method Toilet Urinal # Voids 1 - Labs CBC & Chem 7: 01/02/21 04:45 01/01/21 03:22 Labs: Abnormal Lab Results - Last 24 Hours (Table) 01/01/21 01/02/21 01/02/21 Range/Units 17:21 04:45 13:11 RBC 2.51 L 2.29 L (4.30-5.90) m/uL Hgb 8.1 L D 7.0 L (13.0-17.5) gm/dL Hct 23.5 L 22.4 L (39.0-53.0) % MCV 97.8 H (80.0-97.0) fL MCHC 31.3 L (32.0-37.0) g/dL Monocytes # 1.14 H (0.20-1.00) X 10*3/uL Crossmatch See Detail
[2021-01-02] MEDS: SODIUM FERRIC GLUCONAT-SUCROSE 125 MG in SODIUM CHLORIDE 0.9% 100 ML IVPB SCH (18:15)
[2021-01-02] MEDS: SODIUM CHLORIDE 0.9% 1,000 ML IV SCH (19:06)
[2021-01-03] MEDS: D5-0.45% NACL WITH KCL 20MEQ/L 1,000 ML IV SCH ×2 (00:21→09:42)
[2021-01-03] MEDS: HYDROmorphone 1 MG/ML 1 ML SYRINGE IVP PRN ×5 (01:32→20:09)
--- NOTE | 2021-01-03 03:21 | P.PN ---
Subjective Progress Note Date: 01/02/21 Principal diagnosis: Small bowel obstruction related to Crohn's disease Crohn's colitis exacerbation 40-year-old male with history of Crohn's disease and previous perforations and o bstructions came in with the complaints of right lower quadrant abdominal pain sharp in nature and nonradiating and bloated unable to tolerate any diet with nausea. Patient had a CT of the abdomen which did show inflammation in the terminal ileum consistent with Crohn's disease. Patient was given a dose of Zosyn as started the patient on systemic steroids. Gastric body evaluated the patient. Patient is still complaining of a lot of pain. But his abdomen is quite soft patient's Dilaudid will be switched to oral [place] and Toradol. 01/01/2021 Patient is seen and evaluated resting comfortably in bed; this is seen to be in any distress but continues to complain of uncontrolled pain on Dilaudid every 4 hours GI on board and recommending to continue IV Solu-Medrol 20 mg every 8 hours; surgery has evaluated patient and patient is status post ileocolectomy for small bowel obstruction due to chronic on 12/31/2020; patient is status post 3 bloody bowel movements; surgery is recommending to hold Toradol; we will monitor H&H closely and transfuse as needed; patient remains on IV fluids 01/02/2021 Patient is evaluated in room at bedside; status post ileo-colectomy for small bowel obstruction due to Crohns, 12/31/20. His pain is better controlled after increase in Dilaudid including scheduled or from mass. No further reports of bloody stools last night or today. He's tolerating liquid diet. He is passing flatus. lab review shows hemoglobin of 7.0; d/w surgery- recommending to hold off on blood transfusion given no further bloody BM; we'll monitor H/H Objective - Vital Signs Vital signs: Vital Signs Temp 98.0 F 01/02/21 06:55 Pulse 97 01/02/21 06:55 Resp 14 01/02/21 06:55 BP 123/72 01/02/21 06:55 Pulse Ox 98 01/02/21 06:55 Intake & Output 01/01/21 01/02/21 01/02/21 18:59 06:59 18:59 Output Total 1500 Balance -1500 Output: Urine 1500 Other: Voiding Method Toilet Urinal # Voids 1 - Exam GENERAL: The patient is alert and oriented x3, not in any acute distress. Well developed, well nourished. HEENT: Pupils are round and equally reacting to light. EOMI. No scleral icterus. No conjunctival pallor. Normocephalic, atraumatic. No pharyngeal erythema. No thyromegaly. CARDIOVASCULAR: S1 and S2 present. No murmurs, rubs, or gallops. PULMONARY: Chest is clear to auscultation, no wheezing or crackles. ABDOMEN: Soft, tenderness in the right lower quadrant patient is bit exacerbating his symptoms , nondistended, normoactive bowel sounds. No palpable organomegaly. MUSCULOSKELETAL: No joint swelling or deformity. EXTREMITIES: No cyanosis, clubbing, or pedal edema. NEUROLOGICAL: Gross neurological examination did not reveal any focal deficits. SKIN: No rashes. - Labs CBC & Chem 7: 01/02/21 04:45 01/01/21 03:22 Labs: Abnormal Lab Results - Last 24 Hours (Table) 01/01/21 01/01/21 01/02/21 Range/Units 03:22 17:21 04:45 RBC 2.51 L 2.29 L (4.30-5.90) m/uL Hgb 8.1 L D 7.0 L (13.0-17.5) gm/dL Hct 23.5 L 22.4 L (39.0-53.0) % MCV 97.8 H (80.0-97.0) fL MCHC 31.3 L (32.0-37.0) g/dL Immature Gran # 0.11 H (0.00-0.04) X 10*3/uL Neutrophils # 13.87 H (1.80-7.70) X 10*3/uL Lymphocytes # 0.62 L (0.90-5.00) X 10*3/uL Monocytes # 1.65 H 1.14 H (0.20-1.00) X 10*3/uL Eosinophils # 0 L (0.04-0.35) X 10*3/uL Assessment and Plan Assessment: -Right lower quadrant abdominal pain: Secondary to Crohn's colitis exacerbation patient will be continued on systemic steroids and management as mentioned above. -Tachycardia secondary to pain and colitis -Gastroesophageal reflux disease - nicotine use: Counseling was provided -DVT prophylaxis with Lovenox and GI prophylaxis with Pepcid
[2021-01-03] MEDS: SODIUM CHLORIDE 0.9% 1,000 ML IV SCH (04:46)
[2021-01-03] MEDS: LORazepam 2 MG/ML INJ IV PRN ×2 (04:58→17:03)
[2021-01-03] MEDS: NICOTINE 14MG/24HR PATCH TRANSDERM SCH (08:15)
[2021-01-03] MEDS: SODIUM FERRIC GLUCONAT-SUCROSE 125 MG in SODIUM CHLORIDE 0.9% 100 ML IVPB SCH (08:15)
[2021-01-03] MEDS: PANTOPRAZOLE 40 MG/10 ML VIAL IVP SCH (08:16)
[2021-01-03] MEDS: GABAPENTIN 300 MG CAP PO SCH ×3 (08:16→23:57)
[2021-01-03] MEDS: LIDOCAINE 5% PATCH TOPICAL SCH (08:16)
[2021-01-03 08:58] LABS: Basophils % (A) 0 %; Eosinophils # (A) 0.2 k/uL (0-0.7); Eosinophils % (A) 3 %; HCT 26.4 % (39.0-53.0); HGB 9.3 gm/dL (13.0-17.5); Lymphocytes % (A) 17 %; MCHC 35.4 g/dL (31.0-37.0); MCV 90.6 fL (80.0-100.0); Mean Platelet Volume 6.8; Monocytes # (A) 0.5 k/uL (0-1.0); Monocytes % (A) 10 %; Neutrophils # (A) 3.9 k/uL (1.3-7.7); Neutrophils % (A) 69 %; Platelet Count 232 k/uL (150-450); RBC 2.92 m/uL (4.30-5.90); RDW 14.1 % (11.5-15.5); WBC 5.7 k/uL (3.8-10.6)
[2021-01-03] MEDS ORDERED: ACETAMINOPHEN TAB 325 MG TAB PO PRN ×2 (10:23→10:52)
--- NOTE | 2021-01-03 12:10 | P.PN ---
Subjective Progress Note Date: 01/03/21 Principal diagnosis: Crohn's exacerbation This is a 40-year-old white male with history of Crohn's ileitis diagnosed about 15 years ago. Had multiple hospitalization over the last 3 years with exacerbation of Crohn disease however does not have consistent follow-up in the outpatient setting. His last flare up of Crohn's was in September of this year was treated with steroids are tapered dose over 6 weeks. Abdomen and pelvis CT exam done in the emergency department showed thickening of the terminal ileum with some surrounding inflammatory changes and mild dilation of the proximal small bowel loops consistent with partial small bowel obstruction. She is postop day #3 for ileocolectomy. He had not acute episode of rectal bleeding, status post 1 unit PRBC transfusion. Today's hemoglobin is 9.3. He denies any further rectal bleeding. He states he still has abdominal pain related to surgery. No bowel movement, however has passed flatus. Diet per recommendations from surgical services. He's also will be receiving IV iron. Objective - Vital Signs Vital signs: Vital Signs Temp 98.5 F 01/03/21 09:08 Pulse 78 01/03/21 09:08 Resp 16 01/03/21 09:08 BP 115/74 01/03/21 09:08 Pulse Ox 99 01/03/21 09:08 Intake & Output 01/02/21 01/03/21 01/03/21 18:59 06:59 18:59 Intake Total 310 Output Total 2100 350 Balance 310 -2100 -350 Intake: Blood Product 310 Rc Pheresis As-3 Unit 310 [id number] Output: Urine 2100 350 Other: Voiding Method Toilet Urinal # Voids 4 1 - Exam General appearance: The patient is alert, oriented, appears in no acute distres s. HET: Head is normocephalic and atraumatic. Conjunctiva pink. Sclera anicteric. Neck: Supple without lymphadenopathy. Abdomen: Soft, surgical tenderness, abdominal incision well approximated with lam, clean dry and intact. No guarding or rigidity. Extremities: Normal skin color and turgor. No pedal edema Skin: No rashes, no jaundice Neurological: No focal deficits. Alert and oriented 3. - Labs CBC & Chem 7: 01/03/21 08:35 01/01/21 03:22 Labs: Abnormal Lab Results - Last 24 Hours (Table) 01/02/21 01/03/21 Range/Units 13:11 08:35 RBC 2.92 L (4.30-5.90) m/uL Hgb 9.3 L (13.0-17.5) gm/dL Hct 26.4 L (39.0-53.0) % Crossmatch See Detail Assessment and Plan (1) Exacerbation of Crohn's disease Narrative/Plan: This male patient with a long-standing history of Crohn's ileitis presenting to the hospital with severe right lower quadrant abdominal pain for last 3-4 days duration. CAT scan showed thickening of the ileum suggestive of acute exacerbation of Crohn's ileitis with partial small bowel obstruction. He is scheduled today with surgical services for small bowel resection. Inflammatory markers normal. The patient is postop day #3 for ileal colectomy. He had one episode of bright red blood per rectum and was transfused 1 unit of PRBCs. His repeat hemoglobin is 9.3, with no further signs or symptoms of rectal bleeding. Current Visit: No Status: Acute Code(s): K50.90 - CROHN'S DISEASE, UNSPECIFIED, WITHOUT COMPLICATIONS SNOMED Code(s): 85120996 Plan: 1. Continue symptomatic and supportive care 2. Diet per surgical services 3. Pain medications per surgical team 4. Daily CBC, transfuse for hemoglobin less than 7 5. Recommend follow-up with gastroenterology for continued management of Crohn's disease Thank you for this consultation, we'll sign off at this time Dr. Summer Narvaez I agree with the dictator's note, documented as a scribe by Indu Tracy.
--- NOTE | 2021-01-03 14:50 | P.PN ---
Subjective Progress Note Date: 01/03/21 CHIEF COMPLAINT: Abdominal pain HISTORY OF PRESENT ILLNESS: Patient is status post ileocolectomy for small bowel obstruction related to Crohn's disease. Patient is postop day #3. Patient has been requiring the IV Dilaudid 2 mg every 3 hours. He is on a full liquid diet. Over the weekend patient did have bloody bowel movement. His last bowel movement yesterday was nonbloody. Denies any nausea or vomiting. He's afebrile. He did have a heart rate of 107 this morning. WBC is 5.7 hemoglobin 9.3. He is receiving IV iron. PHYSICAL EXAM: VITAL SIGNS: Reviewed. GENERAL: Well-developed in no acute distress. HEENT: No sclera icterus. Extraocular movements grossly intact. Moist buccal mucosa. Head is atraumatic, normocephalic. ABDOMEN: Soft. Nondistended. Incision site clean dry and intact NEUROLOGIC: Alert and oriented. Cranial nerves II through XII grossly intact. ASSESSMENT: 1. Small bowel obstruction related to Crohn's disease status post ileocolectomy 2. Acute blood loss anemia. Patient receiving IV iron transfusion PLAN: -Continue full liquid diet -Decrease patient's IV Dilaudid 1 mg IV every 6 hours as needed -Add oxycodone 5 mg 1 by mouth every 6 hours as needed. Encourage patient to take oral pain medications -Encourage patient to ambulate -Encourage patient to use incentive spirometer Physician Manager Client Service note has been reviewed by physician. Signing provider agrees with the documented findings, assessment, and plan of care. Objective - Vital Signs Vital signs: Vital Signs Temp 98.5 F 01/03/21 09:08 Pulse 78 01/03/21 09:08 Resp 16 01/03/21 09:08 BP 115/74 01/03/21 09:08 Pulse Ox 99 01/03/21 09:08 Intake & Output 01/02/21 01/03/21 01/03/21 18:59 06:59 18:59 Intake Total 310 Output Total 2100 350 Balance 310 -2100 -350 Intake: Blood Product 310 Rc Pheresis As-3 Unit 310 [id number] Output: Urine 2100 350 Other: Voiding Method Toilet Urinal # Voids 4 1 - Labs CBC & Chem 7: 01/03/21 08:35 01/01/21 03:22 Labs: Abnormal Lab Results - Last 24 Hours (Table) 01/02/21 01/03/21 Range/Units 13:11 08:35 RBC 2.92 L (4.30-5.90) m/uL Hgb 9.3 L (13.0-17.5) gm/dL Hct 26.4 L (39.0-53.0) % Crossmatch See Detail
[2021-01-03 15:01] LABS: Glucose,Whole Blood 114 mg/dL (75-99)
--- NOTE | 2021-01-03 15:11 | P.PN ---
Subjective Progress Note Date: 01/03/21 Small bowel obstruction related to Crohn's disease Crohn's colitis exacerbation 40-year-old male with history of Crohn's disease and previous perforations and obstructions came in with the complaints of right lower quadrant abdominal pain sharp in nature and nonradiating and bloated unable to tolerate any diet with nausea. Patient had a CT of the abdomen which did show inflammation in the terminal ileum consistent with Crohn's disease. Patient was given a dose of Zosyn as started the patient on systemic steroids. Gastric body evaluated the patient. Patient is still complaining of a lot of pain. But his abdomen is quite soft patient's Dilaudid will be switched to oral [place] and Toradol. 01/01/2021 Patient is seen and evaluated resting comfortably in bed; this is seen to be in any distress but continues to complain of uncontrolled pain on Dilaudid every 4 hours GI on board and recommending to continue IV Solu-Medrol 20 mg every 8 hours; surgery has evaluated patient and patient is status post ileocolectomy for small bowel obstruction due to chronic on 12/31/2020; patient is status post 3 bloody bowel movements; surgery is recommending to hold Toradol; we will monitor H&H closely and transfuse as needed; patient remains on IV fluids 01/02/2021 Patient is evaluated in room at bedside; status post ileo-colectomy for small bowel obstruction due to Crohns, 12/31/20. His pain is better controlled after increase in Dilaudid including scheduled or from mass. No further reports of bloody stools last night or today. He's tolerating liquid diet. He is passing flatus. lab review shows hemoglobin of 7.0; d/w surgery- recommending to hold off on blood transfusion given no further bloody BM; we'll monitor H/H 01/03/2021 Patient is seen and evaluated in follow-up and is postop day #4 continues to have abdominal and surgical site tenderness. IV pain medications being adjusted and introducing oral pain medications and discussed with the patient about weaning off IV pain medications and increasing activity as tolerated. Patient is tolerating diet and reports to passing gas and being monitored for bloody stools and bowel activity. Hemoglobin today is 9.3 with no active bleeding noted. Patient has been afebrile. Encourage incentive spirometer and increasing activity as tolerated. Diet is being advanced to full liquids. Review of systems: Constitutional: No reports of fatigue, fever, or chills Cardiovascular: No reports of chest pain or palpitations Respiratory: No reports of shortness of breath or cough GI: No reports of nausea, vomiting, reports continued abdominal and surgical site pain : No reports of dysuria or retention Neurovascular: No reports of weakness or numbness All medications have been reviewed Objective - Vital Signs Vital signs: Vital Signs Temp 98.7 F 01/03/21 03:11 Pulse 107 H 01/03/21 03:11 Resp 17 01/03/21 03:11 BP 137/85 01/03/21 03:11 Pulse Ox 97 01/03/21 03:11 Intake & Output 01/02/21 01/03/21 01/03/21 18:59 06:59 18:59 Intake Total 310 Output Total 2100 Balance 310 -2100 Intake: Blood Product 310 Rc Pheresis As-3 Unit 310 [id number] Output: Urine 2100 Other: Voiding Method Toilet Urinal # Voids 4 - Exam GENERAL: The patient is alert and oriented x3, not in any acute distress. Well developed, well nourished. Police officers at the bedside as he is incarcerated HEENT: Pupils are round and equally reacting to light. EOMI. No scleral icterus. No conjunctival pallor. Normocephalic, atraumatic. No pharyngeal erythema. No thyromegaly. CARDIOVASCULAR: S1 and S2 present. No murmurs, rubs, or gallops. PULMONARY: Chest is clear to auscultation, no wheezing or crackles. ABDOMEN: Soft, tenderness in the right lower quadrant and mid abdominal region near the surgical site, dressing has dried blood status post procedure with no new blood noted, nondistended, normoactive bowel sounds. No palpable organomegaly. MUSCULOSKELETAL: No joint swelling or deformity. EXTREMITIES: No cyanosis, clubbing, or pedal edema. NEUROLOGICAL: Gross neurological examination did not reveal any focal deficits. SKIN: No rashes. - Labs CBC & Chem 7: 01/03/21 08:35 01/01/21 03:22 Labs: Abnormal Lab Results - Last 24 Hours (Table) 01/02/21 01/02/21 01/03/21 Range/Units 04:45 13:11 08:35 RBC 2.29 L 2.92 L (4.40-5.60) X 10*6/uL Hgb 7.0 L 9.3 L (13.0-17.0) g/dL Hct 22.4 L 26.4 L (39.6-50.0) % MCV 97.8 H (80.0-97.0) fL MCHC 31.3 L (32.0-37.0) g/dL Monocytes # 1.14 H (0.20-1.00) X 10*3/uL Crossmatch See Detail Assessment and Plan Assessment: -Right lower quadrant abdominal pain: Secondary to Crohn's colitis exacerbation -Acute blood loss anemia secondary to Crohn's colitis, patient did receive 1 unit of PRBCs and hemoglobin is stable at 9.3 with no further bleeding noted -Small bowel obstruction secondary to Crohn's status post ileocolectomy -Tachycardia secondary to pain and colitis -Gastroesophageal reflux disease -nicotine use: Counseling was provided -DVT prophylaxis with Lovenox -GI prophylaxis with Pepcid -Full code PLan: Kidney with current medications and attempt to wean off IV pain medications and this was discussed in detail with patient along with surgery. Patient increase activity as tolerated and continue using incentive spirometer least 10 times every hour while awake. Diet being advanced to full liquids and will monitor for tolerance. Patient reports passing gas and awaiting bowel movement. Patient is also receiving iron infusions and fluids have been discontinued. Will discuss with surgery about treatment plan with possible discharge in 24-48 hours. Patient is currently incarcerated and will be returning to residential upon discharge.
[2021-01-04] MEDS: HYDROmorphone 1 MG/ML 1 ML SYRINGE IVP PRN ×2 (02:27→08:32)
[2021-01-04] MEDS: NICOTINE 14MG/24HR PATCH TRANSDERM SCH (08:31)
[2021-01-04] MEDS: LIDOCAINE 5% PATCH TOPICAL SCH (08:32)
[2021-01-04] MEDS: PANTOPRAZOLE 40 MG/10 ML VIAL IVP SCH (08:32)
[2021-01-04] MEDS: GABAPENTIN 300 MG CAP PO SCH ×3 (08:32→21:31)
[2021-01-04] MEDS: SODIUM FERRIC GLUCONAT-SUCROSE 125 MG in SODIUM CHLORIDE 0.9% 100 ML IVPB SCH (08:45)
[2021-01-04] MEDS: LORazepam 2 MG/ML INJ IV PRN (09:55)
--- NOTE | 2021-01-04 14:47 | P.PN ---
Subjective Progress Note Date: 01/04/21 CHIEF COMPLAINT: Abdominal pain HISTORY OF PRESENT ILLNESS: Patient is status post ileocolectomy for small bowel obstruction related to Crohn's disease. Patient is postop day #4. Patient still reporting abdominal pain. But he is using the oxycodone. Ends having better pain control. He did have some dark bloody bowel movements. He is passing gas. Denies any nausea or vomiting. He is asking for increase in his diet. He is receiving IV iron. He's afebrile. No new labs for today Patient seen and examined with Dr. polanco PHYSICAL EXAM: VITAL SIGNS: Reviewed. GENERAL: Well-developed in no acute distress. HEENT: No sclera icterus. Extraocular movements grossly intact. Moist buccal mucosa. Head is atraumatic, normocephalic. ABDOMEN: Soft. Nondistended. Incision site clean dry and intact NEUROLOGIC: Alert and oriented. Cranial nerves II through XII grossly intact. ASSESSMENT: 1. Small bowel obstruction related to Crohn's disease status post ileocolectomy 2. Acute blood loss anemia. Patient receiving IV iron transfusion PLAN: -Advance diet to regular -Continue current pain medication as needed -Encourage patient to ambulate -Encourage patient to use incentive spirometer -Anticipate discharge tomorrow Physician Coal Pulverizing Operator note has been reviewed by physician. Signing provider agrees with the documented findings, assessment, and plan of care. Objective - Vital Signs Vital signs: Vital Signs Temp 98.2 F 01/04/21 07:40 Pulse 106 H 01/04/21 07:40 Resp 16 01/04/21 07:40 BP 118/72 01/04/21 07:40 Pulse Ox 99 01/04/21 07:40 Intake & Output 01/03/21 01/04/21 01/04/21 18:59 06:59 18:59 Intake Total 400 200 Output Total 350 350 Balance 50 -350 200 Intake: Oral 400 200 Output: Urine 350 350 Other: Voiding Method Toilet Urinal # Voids 1 1 - Labs CBC & Chem 7: 01/03/21 08:35 01/01/21 03:22 Labs: Abnormal Lab Results - Last 24 Hours (Table) 01/03/21 Range/Units 14:59 POC Glucose (mg/dL) 114 H (75-99) mg/dL
--- NOTE | 2021-01-04 15:24 | P.PN ---
Subjective Progress Note Date: 01/04/21 Small bowel obstruction related to Crohn's disease Crohn's colitis exacerbation 40-year-old male with history of Crohn's disease and previous perforations and obstructions came in with the complaints of right lower quadrant abdominal pain sharp in nature and nonradiating and bloated unable to tolerate any diet with nausea. Patient had a CT of the abdomen which did show inflammation in the terminal ileum consistent with Crohn's disease. Patient was given a dose of Zosyn as started the patient on systemic steroids. Gastric body evaluated the patient. Patient is still complaining of a lot of pain. But his abdomen is quite soft patient's Dilaudid will be switched to oral [place] and Toradol. 01/01/2021 Patient is seen and evaluated resting comfortably in bed; this is seen to be in any distress but continues to complain of uncontrolled pain on Dilaudid every 4 hours GI on board and recommending to continue IV Solu-Medrol 20 mg every 8 hours; surgery has evaluated patient and patient is status post ileocolectomy for small bowel obstruction due to chronic on 12/31/2020; patient is status post 3 bloody bowel movements; surgery is recommending to hold Toradol; we will monitor H&H closely and transfuse as needed; patient remains on IV fluids 01/02/2021 Patient is evaluated in room at bedside; status post ileo-colectomy for small bowel obstruction due to Crohns, 12/31/20. His pain is better controlled after increase in Dilaudid including scheduled or from mass. No further reports of bloody stools last night or today. He's tolerating liquid diet. He is passing flatus. lab review shows hemoglobin of 7.0; d/w surgery- recommending to hold off on blood transfusion given no further bloody BM; we'll monitor H/H 01/03/2021 Patient is seen and evaluated in follow-up and is postop day #4 continues to have abdominal and surgical site tenderness. IV pain medications being adjusted and introducing oral pain medications and discussed with the patient about weaning off IV pain medications and increasing activity as tolerated. Patient is tolerating diet and reports to passing gas and being monitored for bloody stools and bowel activity. Hemoglobin today is 9.3 with no active bleeding noted. Patient has been afebrile. Encourage incentive spirometer and increasing activity as tolerated. Diet is being advanced to full liquids. 01/04/2021 Patient is seen and evaluated in follow-up today with no acute overnight issues. Patient is tolerating diet and being advanced and surgery following closely wanting to observe for another 24 hours and monitor for tolerance of normal d iet. Patient states he did have a bowel movement yesterday although flushed it prior to any nursing staff assessing it and he states it was continued with blood in it. Encourage the patient to increase activity and get up out of the bed more often. Will discontinue IV Dilaudid and continue with oral pain medications and discussed with nursing staff as he will be returning to [facility] and is not allowed narcotics. Discussed with the medical staff at the [facility] and are agreeable to Tylenol 3 for a very short period. Review of systems: Constitutional: No reports of fatigue, fever, or chills Cardiovascular: No reports of chest pain or palpitations Respiratory: No reports of shortness of breath or cough GI: No reports of nausea, vomiting, reports continued abdominal and surgical site pain that is tender although slightly improved : No reports of dysuria or retention Neurovascular: No reports of weakness or numbness All medications have been reviewed Objective - Vital Signs Vital signs: Vital Signs Temp 98.2 F 01/04/21 07:40 Pulse 106 H 01/04/21 07:40 Resp 16 01/04/21 07:40 BP 118/72 01/04/21 07:40 Pulse Ox 99 01/04/21 07:40 Intake & Output 01/03/21 01/04/21 01/04/21 18:59 06:59 18:59 Intake Total 400 200 Output Total 350 350 Balance 50 -350 200 Intake: Oral 400 200 Output: Urine 350 350 Other: Voiding Method Toilet Urinal # Voids 1 1 - Exam GENERAL: The patient is alert and oriented x3, not in any acute distress. Well developed, well nourished. Police officers at the bedside as he is incarcerated HEENT: Pupils are round and equally reacting to light. EOMI. No scleral icterus. No conjunctival pallor. Normocephalic, atraumatic. No pharyngeal erythema. No thyromegaly. CARDIOVASCULAR: S1 and S2 present. No murmurs, rubs, or gallops. PULMONARY: Chest is clear to auscultation, no wheezing or crackles. ABDOMEN: Soft, tenderness in the right lower quadrant and mid abdominal region near the surgical site, dressing has been changed and is dry and intact with no bleeding or drainage noted, nondistended, normoactive bowel sounds. No palpable organomegaly. MUSCULOSKELETAL: No joint swelling or deformity. EXTREMITIES: No cyanosis, clubbing, or pedal edema. NEUROLOGICAL: Gross neurological examination did not reveal any focal deficits. SKIN: No rashes. - Labs CBC & Chem 7: 01/03/21 08:35 01/01/21 03:22 Labs: Abnormal Lab Results - Last 24 Hours (Table) 01/03/21 Range/Units 14:59 POC Glucose (mg/dL) 114 H (75-99) mg/dL Assessment and Plan Assessment: -Right lower quadrant abdominal pain: Secondary to Crohn's colitis exacerbation -Acute blood loss anemia secondary to Crohn's colitis, patient did receive 1 unit of PRBCs and hemoglobin is stable at 9.3 with no further bleeding noted -Small bowel obstruction secondary to Crohn's status post ileocolectomy -Tachycardia secondary to pain and colitis, improved -Gastroesophageal reflux disease -nicotine use: Counseling was provided -DVT prophylaxis with Lovenox -GI prophylaxis with Pepcid -Full code PLan: Continue with current medications and discontinued IV pain medications and this was discussed in detail with patient along with surgery. Patient increase activity as tolerated and continue using incentive spirometer least 10 times every hour while awake. Diet being advanced to full liquids tolerated and will advance further and monitor for an additional 24 hours. Patient reports passing gas and having bowel movement. Surgery recommends observation from an additional 24 hours to monitor for diet tolerance. Patient is currently incarcerated and will be returning to [facility] upon discharge. Anticipate discharge in 24 hours.
[2021-01-04] MEDS: LORazepam 0.5 MG TAB PO PRN (19:16)
[2021-01-05 02:53] VITALS: BP 119/73; PULSE 94; RESP 17; TEMP 98.3
[2021-01-05] MEDS: PANTOPRAZOLE 40 MG/10 ML VIAL IVP SCH (07:24)
[2021-01-05] MEDS: NICOTINE 14MG/24HR PATCH TRANSDERM SCH (07:24)
[2021-01-05] MEDS: GABAPENTIN 300 MG CAP PO SCH (07:24)
[2021-01-05] MEDS: LIDOCAINE 5% PATCH TOPICAL SCH (07:24)
[2021-01-05] MEDS: LORazepam 0.5 MG TAB PO PRN (09:22)
[2021-01-05 11:04] LABS: Basophils % (A) 0 %; Eosinophils # (A) 0.2 k/uL (0-0.7); Eosinophils % (A) 3 %; HCT 28.1 % (39.0-53.0); HGB 9.1 gm/dL (13.0-17.5); Lymphocytes % (A) 18 %; MCH 30.3 pg (25.0-35.0); MCHC 32.3 g/dL (31.0-37.0); MCV 93.8 fL (80.0-100.0); Mean Platelet Volume 6.9; Monocytes # (A) 0.5 k/uL (0-1.0); Monocytes % (A) 8 %; Neutrophils # (A) 3.9 k/uL (1.3-7.7); Neutrophils % (A) 70 %; Platelet Count 351 k/uL (150-450); RDW 15.6 % (11.5-15.5); WBC 5.6 k/uL (3.8-10.6)
[2021-01-05 11:09] LABS: Basophils # (A) 0.04 X 10*3/uL (0.00-0.10); Basophils % (A) 0.6 %; Eosinophils # (A) 0.29 X 10*3/uL (0.04-0.35); Eosinophils % (A) 4.2 %; HCT 27.1 % (39.6-50.0); HGB 8.5 g/dL (13.0-17.0); Lymphocytes # (A) 2.08 X 10*3/uL (0.90-5.00); Lymphocytes % (A) 30.4 %; MCH 30.2 pg (27.0-32.0); MCHC 31.4 g/dL (32.0-37.0); MCV 96.4 fL (80.0-97.0); Monocytes # (A) 0.96 X 10*3/uL (0.20-1.00); Neutrophils # (A) 3.44 X 10*3/uL (1.80-7.70); Neutrophils % (A) 50.4 %; Platelet Count 314 X 10*3/uL (140-440); RBC 2.81 X 10*6/uL (4.40-5.60); RDW 14.2 % (11.5-14.5); WBC 6.84 X 10*3/uL (4.50-10.00)
--- NOTE | 2021-01-05 12:25 | P.PN ---
Subjective Progress Note Date: 01/05/21 CHIEF COMPLAINT: Abdominal pain HISTORY OF PRESENT ILLNESS: Patient is status post ileocolectomy for small bowel obstruction related to Crohn's disease. Patient is postop day #5. Patient reports improvement in his abdominal pain. He is tolerating regular diet. He did have some dark blood in his stools. He is passing gas. Denies any nausea or vomiting. Patient did receive IV iron 3 doses. He's afebrile. WBC 5.6 hemoglobin 9.1 platelets 351 PHYSICAL EXAM: VITAL SIGNS: Reviewed. GENERAL: Well-developed in no acute distress. HEENT: No sclera icterus. Extraocular movements grossly intact. Moist buccal mucosa. Head is atraumatic, normocephalic. ABDOMEN: Soft. Mildly distended Incision site clean dry and intact NEUROLOGIC: Alert and oriented. Cranial nerves II through XII grossly intact. ASSESSMENT: 1. Small bowel obstruction related to Crohn's disease status post ileocolectomy 2. Acute blood loss anemia. Hemoglobin stable. PLAN: -Continue regular diet -Patient can be discharge from surgical standpoint Physician Supervisor Gas Meter Repair note has been reviewed by physician. Signing provider agrees with the documented findings, assessment, and plan of care. Objective - Vital Signs Vital signs: Vital Signs Temp 98.3 F 01/05/21 02:51 Pulse 94 01/05/21 02:51 Resp 17 01/05/21 02:51 BP 119/73 01/05/21 02:51 Pulse Ox 98 01/05/21 02:51 Intake & Output 01/04/21 01/05/21 01/05/21 18:59 06:59 18:59 Intake Total 200 10 400 Output Total 500 Balance 200 -490 400 Intake: IV 10 Invasive Line 3 10 Oral 200 400 Output: Urine 500 Other: Voiding Method Toilet Urinal - Labs CBC & Chem 7: 01/05/21 10:47 01/01/21 03:22 Labs: Abnormal Lab Results - Last 24 Hours (Table) 01/05/21 01/05/21 Range/Units 06:06 10:47 RBC 2.81 L 3.00 L (4.40-5.60) X 10*6/uL Hgb 8.5 L 9.1 L (13.0-17.0) g/dL Hct 27.1 L 28.1 L (39.6-50.0) % MCHC 31.4 L (32.0-37.0) g/dL RDW 15.6 H (11.5-15.5) %
--- NOTE | 2021-01-05 16:04 | P.DS ---
Providers Date of admission: 12/29/20 21:37 Expected date of discharge: 01/05/21 Attending physician: Jelani Scott Consults: 12/30/20 08:33 Consult Physician Urgent Consulting Provider: Jason López Consult Reason/Comments: partial obstruction Do you want consulting provider notified?: Yes Primary care physician: Theresa Engel Hospital Course: Final diagnosis -Right lower quadrant abdominal pain: Secondary to Crohn's colitis exacerbation -Acute blood loss anemia secondary to Crohn's colitis -Small bowel obstruction secondary to Crohn's status post ileocolectomy -Tachycardia secondary to pain and colitis, improved -Gastroesophageal reflux disease -nicotine use: Counseling was provided -DVT prophylaxis -GI prophylaxis -Full code Discharge disposition Patient is being discharged in a stable condition with guarded prognosis to [facility] with police officers at the bedside. Patient will follow-up with Dr. Engel in the outpatient setting upon discharge. Patient is to continue with Motrin and/or Tylenol No. 3 as needed for pain. Patient to follow-up with surgery along with GI in the outpatient setting. Total time taken is greater than 35 minutes. Hospital course Small bowel obstruction related to Crohn's disease Crohn's colitis exacerbation 40-year-old male with history of Crohn's disease and previous perforations and obstructions came in with the complaints of right lower quadrant abdominal pain sharp in nature and nonradiating and bloated unable to tolerate any diet with nausea. Patient had a CT of the abdomen which did show inflammation in the terminal ileum consistent with Crohn's disease. Patient was given a dose of Zosyn as started the patient on systemic steroids. Gastric body evaluated the patient. Patient is still complaining of a lot of pain. But his abdomen is quite soft patient's Dilaudid will be switched to oral [place] and Toradol. 01/01/2021 Patient is seen and evaluated resting comfortably in bed; this is seen to be in any distress but continues to complain of uncontrolled pain on Dilaudid every 4 hours GI on board and recommending to continue IV Solu-Medrol 20 mg every 8 hours; surgery has evaluated patient and patient is status post ileocolectomy for small bowel obstruction due to chronic on 12/31/2020; patient is status post 3 bloody bowel movements; surgery is recommending to hold Toradol; we will monitor H&H closely and transfuse as needed; patient remains on IV fluids 01/02/2021 Patient is evaluated in room at bedside; status post ileo-colectomy for small bowel obstruction due to Crohns, 12/31/20. His pain is better controlled after increase in Dilaudid including scheduled or from mass. No further reports of bloody stools last night or today. He's tolerating liquid diet. He is passing flatus. lab review shows hemoglobin of 7.0; d/w surgery- recommending to hold off on blood transfusion given no further bloody BM; we'll monitor H/H 01/03/2021 Patient is seen and evaluated in follow-up and is postop day #4 continues to have abdominal and surgical site tenderness. IV pain medications being adjusted and introducing oral pain medications and discussed with the patient about weaning off IV pain medications and increasing activity as tolerated. Patient is tolerating diet and reports to passing gas and being monitored for bloody stools and bowel activity. Hemoglobin today is 9.3 with no active bleeding noted. Patient has been afebrile. Encourage incentive spirometer and increasing activity as tolerated. Diet is being advanced to full liquids. 01/04/2021 Patient is seen and evaluated in follow-up today with no acute overnight issues. Patient is tolerating diet and being advanced and surgery following closely wanting to observe for another 24 hours and monitor for tolerance of normal diet. Patient states he did have a bowel movement yesterday although flushed it prior to any nursing staff assessing it and he states it was continued with blood in it. Encourage the patient to increase activity and get up out of the bed more often. Will discontinue IV Dilaudid and continue with oral pain medications and discussed with nursing staff as he will be returning to intermediate and is not allowed narcotics. Discussed with the medical staff at the intermediate and are agreeable to Tylenol 3 for a very short period. 01/05/2021 Patient is seen this morning with no acute overnight issues. Patient's diet was advanced to regular diet and tolerating. Patient is having bowel movements and states he still notices blood in the stool although not showing nursing staff of which patient was instructed to do so. Patient continues with abdominal discomfort and asking for pain medications to be discharged with. Will give a short prescription of Tylenol No. 3 and will be discharged today. Hemoglobin today is 9.1. Currently no reports of chest pain, shortness of breath, or palpitations. Patient is afebrile. No reports of nausea or vomiting and patient is tolerating diet. Patient will be discharged to [facility] today. On exam vital signs are stable. Cardio S1, S2 are muffled. Respiratory system shows diminished breath sounds at the bases with no wheezing or rhonchi noted. Abdomen is soft and nontender. Nervous system shows no focal deficits. Please refer to medication reconciliation sheet for a list of medications. Patient Condition at Discharge: Stable Plan - Discharge Summary Discharge Rx Participant: No New Discharge Prescriptions: New Ibuprofen [Motrin] 400 mg PO Q6HR PRN #10 tab PRN Reason: Pain Acetaminophen Tab [Tylenol] 650 mg PO Q6HR PRN tab PRN Reason: Fever And/ Or Pain Acetaminophen-Codeine 300-30mg [Tylenol w/codeine #3] 1 tab PO Q6H PRN 3 Days #12 tablet PRN Reason: Pain Discharge Medication List Acetaminophen Tab [Tylenol] 650 mg PO Q6HR PRN tab 01/05/21 [Rx] Acetaminophen-Codeine 300-30mg [Tylenol w/codeine #3] 1 tab PO Q6H PRN 3 Days #12 tablet 01/05/21 [Rx] Ibuprofen [Motrin] 400 mg PO Q6HR PRN #10 tab 01/05/21 [Rx] Follow up Appointment(s)/Referral(s): Marguerite Narvaez MD [STAFF PHYSICIAN] - 2 Weeks Theresa Engel DO [Primary Care Provider] - 1-2 days Jason López MD [STAFF PHYSICIAN] - 1 Week Patient Instructions/Handouts: Bowel Resection (DC), Staple Care (DC) Activity/Diet/Wound Care/Special Instructions: Activity Limited until follow-up Follow-up with primary care provider upon discharge Follow-up with surgery outpatient Continue regular diet Discharge Disposition: DC/TRANSFER COURT/LAW
== END 2021-01-05 12:33 | DRG 330 ==
LOC: EC 19:09 → 6NMEDSUR 21:37 → EEVIPCON 21:37
PROVIDERS: ADMIT Hospitalist; ATTEND Hospitalist
PROC: 0DTB0ZZ Resection of Ileum, Open Approach (ICD-10-PCS; 2020-12-31)
PROC: 0DBK0ZZ Excision of Ascending Colon, Open Approach (ICD-10-PCS; principal; 2020-12-31 13:55)
DX: K50.812 Crohn's disease of both small and large intestine with intestinal obstruction (principal); D62 Acute posthemorrhagic anemia; K21.9 Gastro-esophageal reflux disease without esophagitis; R00.0 Tachycardia, unspecified; F17.200 Nicotine dependence, unspecified, uncomplicated; G89.29 Other chronic pain; Z82.49 Family history of ischemic heart disease and other diseases of the circulatory system; Z87.442 Personal history of urinary calculi
CPT/HCPCS: 36415; 64999; 74177; 76942; 80048; 80053; 81001; 82150; 83605; 83690; 85025; 85027; 85610; 85652; 85730; 86140; 86850; 86900; 86901; 86920; 87636; 88307; 96361; 96365; 96375; 96376; 99285

== ENCOUNTER 2021-01-05 19:57 | Emergency (ER) | payer MEDICARE, OTHER ==
[2021-01-05] MEDS ORDERED: HYDROmorphone 1 MG/ML 1 ML SYRINGE IVP STA (20:20)
[2021-01-05] MEDS ORDERED: SODIUM CHLORIDE 0.9% 1,000 ML IV STA (20:22)
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
[2021-01-05 20:30] LABS: Basophils % (A) 0 %; Eosinophils # (A) 0.2 k/uL (0-0.7); Eosinophils % (A) 3 %; HCT 27.9 % (39.0-53.0); HGB 9.7 gm/dL (13.0-17.5); Lymphocytes % (A) 25 %; MCHC 34.9 g/dL (31.0-37.0); MCV 91.7 fL (80.0-100.0); Monocytes # (A) 0.6 k/uL (0-1.0); Monocytes % (A) 7 %; Neutrophils % (A) 63 %; Platelet Count 361 k/uL (150-450); RBC 3.04 m/uL (4.30-5.90); RDW 15.7 % (11.5-15.5); WBC 7.9 k/uL (3.8-10.6)
[2021-01-05 20:40] LABS: ALT 33 U/L (4-49); AST 29 U/L (17-59); African American GFR (CKD) >90 (>60 ml/min/1.73 sqM); Albumin 3.4 g/dL (3.5-5.0); Alkaline Phosphatase 95 U/L (38-126); Anion Gap 8 mmol/L; Blood Urea Nitrogen 18 mg/dL (9-20); Calcium 8.8 mg/dL (8.4-10.2); Carbon Dioxide 29 mmol/L (22-30); Chloride 103 mmol/L (98-107); Glucose 87 mg/dL (74-99); Lipase 208 U/L (23-300); Non-African American GFR(CKD) >90 (>60 ml/min/1.73 sqM); Potassium 3.8 mmol/L (3.5-5.1); Sodium 140 mmol/L (137-145); Total Bilirubin 0.4 mg/dL (0.2-1.3); Total Protein 6.2 g/dL (6.3-8.2)
--- NOTE | 2021-01-05 21:09 | CT ---
EXAMINATION TYPE: CT abdomen pelvis w con DATE OF EXAM: 01/05/2021 COMPARISON: 12/29/2020. HISTORY: Post operative pain. Hx Crhons CT DLP: 655.5 mGycm Automated exposure control for dose reduction was used. TECHNIQUE: Helical acquisition of images was performed from the lung bases through the pelvis. CONTRAST: Performed without Oral Contrast and with IV Contrast, patient injected with 100 mL of Isovue 300. FINDINGS: LUNG BASES: No significant abnormality is appreciated. LIVER/GB: No significant abnormality is appreciated. PANCREAS: No significant abnormality is seen. SPLEEN: No significant abnormality is seen. ADRENALS: No significant abnormality is seen. KIDNEYS: No significant abnormality is seen. A 0.8 cm simple left renal cyst is seen. FREE AIR: No free air is visualized. RETROPERITONEAL ADENOPATHY: None visualized REPRODUCTIVE ORGANS: No significant abnormality is seen URINARY BLADDER: No significant abnormality is seen. PELVIC ADENOPATHY: None visualized. OSSEOUS STRUCTURES: No acute abnormality is seen. Stable mild L1 superior endplate compression defor mity BOWEL: Moderate wall thickening of the terminal ileum. Post surgical changes involving the cecum see n. No bowel obstruction, free air or fluid. There is mild colonic distention with stool and gas. Ther e is mild fat stranding the right lower quadrant. Appendix is surgically absent. Midline laparotomy s een. OTHER: None. IMPRESSION: INTERVAL MIDLINE LAPAROTOMY. Terminal ileal wall thickening with inflammatory changes in the right lower quadrant seen. Findings i n part may represent postsurgical changes. Superimposed acute exacerbation of Crohn's disease also po ssible. No fluid collection or bowel obstruction. Mild colonic distention.
[2021-01-05 22:07] VITALS: BP 121/74; PULSE 90; RESP 18; TEMP 98.3
== END 2021-01-05 22:40 | disposition home or self-care (01) ==
LOC: EC 19:57
DX: G89.18 Other acute postprocedural pain (principal); K21.9 Gastro-esophageal reflux disease without esophagitis; F17.200 Nicotine dependence, unspecified, uncomplicated; Z87.442 Personal history of urinary calculi
CPT/HCPCS: 36415; 80053; 83605; 83690; 85025; 74177; 99284; 96374; 96361; J1170; Q9967

== ENCOUNTER 2021-04-17 13:55 | Emergency (ER) | payer BC, MEDICARE ==
[2021-04-17 14:01] VITALS: TEMP 98.3
[2021-04-17] MEDS ORDERED: MORPHINE SULFATE 4 MG/ML SYRINGE IV STA (14:15)
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
[2021-04-17 14:27] LABS: Appearance,Urine Clear (Clear); Basophils # (A) 0.1 k/uL (0-0.2); Basophils % (A) 1 %; Bilirubin,Urine Negative (Negative); Blood,Urine Negative (Negative); Color,Urine Yellow; Eosinophils # (A) 0.1 k/uL (0-0.7); Eosinophils % (A) 1 %; Glucose,Urine (UA) Negative (Negative); HCT 42.1 % (39.0-53.0); HGB 14.5 gm/dL (13.0-17.5); Ketones,Urine 1+ (Negative); Leukocyte Esterase,Urine Negative (Negative); Lymphocytes # (A) 1.9 k/uL (1.0-4.8); Lymphocytes % (A) 18 %; MCHC 34.4 g/dL (31.0-37.0); MCV 84.3 fL (80.0-100.0); Mean Platelet Volume 6.9; Monocytes # (A) 0.6 k/uL (0-1.0); Monocytes % (A) 5 %; Neutrophils # (A) 7.7 k/uL (1.3-7.7); Neutrophils % (A) 73 %; Nitrite,Urine Negative (Negative); Platelet Count 289 k/uL (150-450); Protein,Urine Trace (Negative); RDW 15.1 % (11.5-15.5); Specific Gravity,Urine 1.027 (1.001-1.035); Urobilinogen,Urine <2.0 mg/dL (<2.0); WBC 10.5 k/uL (3.8-10.6)
[2021-04-17 14:52] LABS: ALT 39 U/L (4-49); AST 42 U/L (17-59); African American GFR (CKD) >90 (>60 ml/min/1.73 sqM); Albumin 4.8 g/dL (3.5-5.0); Alkaline Phosphatase 97 U/L (38-126); Amylase 80 U/L (30-110); Anion Gap 11 mmol/L; Blood Urea Nitrogen 16 mg/dL (9-20); Calcium 9.9 mg/dL (8.4-10.2); Carbon Dioxide 21 mmol/L (22-30); Chloride 105 mmol/L (98-107); Glucose 109 mg/dL (74-99); Lipase 87 U/L (23-300); Non-African American GFR(CKD) >90 (>60 ml/min/1.73 sqM); Potassium 4.2 mmol/L (3.5-5.1); Sodium 137 mmol/L (137-145); Total Bilirubin 0.6 mg/dL (0.2-1.3); Total Protein 7.8 g/dL (6.3-8.2)
[2021-04-17 14:57] LABS: Partial Thromboplastin Time 26.8 sec (22.0-30.0); Prothrombin Time 10.4 sec (9.0-12.0)
--- NOTE | 2021-04-17 15:03 | XR ---
EXAMINATION TYPE: XR chest 2V DATE OF EXAM: 04/17/2021 COMPARISON: 04/24/2017 HISTORY: Abdominal pain. Back pain TECHNIQUE: FINDINGS: Heart and mediastinum are normal. Lungs are clear of infiltrate. There is no heart failure. There are no hilar masses. Costophrenic angles are clear. Bony thorax is intact. IMPRESSION: No active cardiopulmonary disease. Normal heart. No change.
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
[2021-04-17] MEDS ORDERED: ONDANSETRON 4 MG/2 ML VIAL IVP STA (15:45)
[2021-04-17] MEDS ORDERED: FAMOTIDINE 20 MG/2 ML VIAL IV STA (15:45)
[2021-04-17] MEDS ORDERED: KETOROLAC 15 MG/ML 1 ML VIAL IVP STA (15:46)
[2021-04-17 15:56] VITALS: BP 138/73; PULSE 87; RESP 18
== END 2021-04-17 15:55 | disposition home or self-care (01) ==
LOC: EC 13:55
DX: S30.1XXA Contusion of abdominal wall, initial encounter (principal); K21.9 Gastro-esophageal reflux disease without esophagitis; F17.200 Nicotine dependence, unspecified, uncomplicated; Z87.442 Personal history of urinary calculi; Z90.89 Acquired absence of other organs; Y04.0XXA Assault by unarmed brawl or fight, initial encounter
CPT/HCPCS: 99285; 96374; 96375 ×3; 36415; 80053; 82150; 83690; 85025; 85610; 85730; 81003; 71046; 74177; J2270; J2405; J1885; Q9967